=== PATIENT | male | born 1975 ===

== ENCOUNTER 2016-12-13 18:05 | Inpatient (IN) | payer MEDICAID ==
[2016-12-13 18:22] VITALS: RESP 18
[2016-12-13 21:05] LABS: HEMATOCRIT 42.2 % (35.0-51.0); MEAN CELL VOLUME 89.8 fl (80.0-94.0); MEAN CORPUSCULAR HEMOGLOBIN 29.9 pg (27.0-31.0); MEAN CORPUSCULAR HGB CONC 33.3 g/dL (33.0-37.0)
[2016-12-13 21:17] LABS: ALB/GLOB RATIO 1.2 (1.0-2.1); ALCOHOL SERUM < 10 mg/dl (0-10); ALKALINE PHOSPHATASE 89 U/L (38-126); ALT/SGPT 111 U/L (21-72); AST/SGOT 84 U/L (17-59); BILIRUBIN,TOTAL 0.4 mg/dl (0.2-1.3); BLOOD UREA NITROGEN 19 mg/dl (9-20); CALCIUM 9.1 mg/dL (8.4-10.2); CARBON DIOXIDE 28 mmol/L (22-30); CHLORIDE 105 mmol/L (98-107); GFR AFRICAN-AMERICAN > 60; GLUCOSE,RANDOM 80 mg/dL (75-110); POTASSIUM 4.1 MMOL/L (3.6-5.0); SODIUM 137 mmol/l (132-148); TOTAL PROTEIN 7.6 G/DL (6.3-8.2)
[2016-12-13 21:44] LABS: RBC URINE 3 /hpf (0-3); URINE BACTERIA RARE (<OCC); URINE BILIRUBIN NEGATIVE (NEGATIVE); URINE BLOOD NEGATIVE (NEGATIVE); URINE COLOR YELLOW (YELLOW); URINE GLUCOSE (UA) NEG (Normal); URINE KETONE NEGATIVE (NEGATIVE); URINE LEUKOCYTE ESTERASE NEG Leu/uL (Negative); URINE PROTEIN NEGATIVE (NEGATIVE); URINE UROBILINOGEN 0.2-1.0 mg/dL (0.2-1.0); WBC URINE 1 /hpf (0-5)
--- NOTE | 2016-12-13 23:06 | ED PDOC ---
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 Pt states that he was not using heroine but used again after being fired and again earlier today. Pt reports SI without plan. Past Medical History Reviewed: Historical Data, Nursing Documentation, Vital Signs Vital Signs: Last Vital Signs Temp 98.1 F 12/13/16 18:18 Pulse 84 12/13/16 18:18 Resp 18 12/13/16 18:18 BP 147/89 12/13/16 18:18 Pulse Ox 99 12/13/16 18:18 - Medical History PMH: Anxiety, Bipolar Disorder, Depression, Schizophrenia Denies: Diabetes, Hepatitis, HIV, HTN, Chronic Kidney Disease, Seizures, Sexually Transmitted Disease - Surgical History Surgical History: No Surg Hx - Family History Family History: States: Unknown Family Hx - Living Arrangements Living Arrangements: Alone - Home Medications Home Medications: Ambulatory Orders Medication Instructions Recorded No Known Home Med 02/08/16 - Allergies Allergies/Adverse Reactions: Allergies Allergy/AdvReac Type Severity Reaction Status Date / Time ibuprofen Allergy RASH Verified 04/20/16 22:40 Review of Systems ROS Statement: Except As Marked, All Systems Reviewed And Found Negative Psych: Positive for: Depression, Suicidal ideation Physical Exam - Reviewed Nursing Documentation Reviewed: Yes Vital Signs Reviewed: Yes - Physical Exam Appears: Positive for: Well, Non-toxic, No Acute Distress Head Exam: Positive for: ATRAUMATIC, NORMAL INSPECTION, NORMOCEPHALIC Skin: Positive for: Normal Color, Warm, DRY Eye Exam: Positive for: Normal appearance ENT: Positive for: Normal ENT Inspection Neck: Positive for: Normal, Painless ROM Cardiovascular/Chest: Positive for: Regular Rate, Rhythm Respiratory: Positive for: CNT, Normal Breath Sounds Gastrointestinal/Abdominal: Positive for: Normal Exam, Bowel Sounds, Soft Back: Positive for: Normal Inspection Extremity: Positive for: Normal ROM Neurologic/Psych: Positive for: Alert, Oriented - Laboratory Results Result Diagrams: 12/13/16 20:45 12/13/16 20:45 - ECG O2 Sat by Pulse Oximetry: 99 Medical Decision Making Medical Decision Making: CXR - Normal Crisis evaluation completed. Pt reports feeling anxious in ER and states he feels better after ativan PO. Disposition - Clinical Impression Clinical Impression: Depression - Patient ED Disposition Is Patient to be Admitted: Yes - Disposition Disposition: Routine/Home Disposition Time: 23:07 Condition: GOOD - Pt Status Changed To: Hospital Disposition Of: Inpatient - Admit Certification Admit to Inpatient:: After my assessment, the patient will require hospitalization for at least two midnights. This is because of the severity of symptoms shown, intensity of services needed, and/or the medical risk in this patient being treated as an outpatient. - POA Present On Arrival: None
[2016-12-13 23:34] VITALS: O2SAT 98
[2016-12-14] MEDS ORDERED: Alum-Mag Hydrox-Simethicone Susp (30 mL) PO PRN (00:02)
[2016-12-14] MEDS ORDERED: Magnesium Hydroxide Susp 30 ml UD PO PRN (00:02)
[2016-12-14] MEDS ORDERED: DiphenhydrAMINE 50 mg/ml Inj IM PRN (00:02)
--- NOTE | 2016-12-14 07:07 | CP.PCM.CON ---
History of Present Illness - History of Present Illness History of Present Illness: Attending: Dr Morales PCP: Ramos. Shubham RODRIGUEZ Reason for Consul: Medical Management Chief Complaint: Suicidal thoughts HPI: 41 years old male with hx of depressive disorder and Heroin abuse brought to the ED with Suicidal Ideation with plan to OD or cut himself, after being fired from his job. No homicidal ideation. He used Cocaine, 10 bags on the day of admission. He refers beginning to have Heroin withdrawal symptoms of tremors and abdominal cramping. PMH: Anxiety, Bipolar Disorder, Depression, Schizophrenia PSH: No surgical Hx SH: Drug use with Heroin; Alcohol socially; No cigarette smoking FH; No known family hx Allergies: Ibuprofen Review of Systems - Constitutional Constitutional: Chills. absent: Anorexia, Fatigue, Fever, Headache, Lethargy - EENT Eyes: absent: Diplopia, Floaters, Photophobia, Requires Corrective Lenses, Sees Flashes Nose/Mouth/Throat: absent: Epistaxis, Nasal Congestion, Nasal Discharge, Sinus Pain, Sinus Pressure, Sore Throat - Cardiovascular Cardiovascular: absent: Chest Pain, Edema, Leg Edema, Lightheadedness, Orthopnea , Paroxysmal Nocturnal Dyspnea - Respiratory Respiratory: absent: Cough, Wheezing, Stridor, Chest Congestion - Gastrointestinal Gastrointestinal: Cramping. absent: Constipation, Diarrhea, Nausea, Vomiting - Genitourinary Genitourinary: absent: Difficulty Urinating, Dysuria, Urinary Frequency, Freq UTI - Musculoskeletal Musculoskeletal: absent: Arthralgias, Muscle Cramps, Muscle Weakness, Neck Pain - Integumentary Integumentary: absent: Pruritus, Rash, Skin Ulcer, Sores, Striae, Swelling - Neurological Neurological: Tremor. absent: Confusion, Convulsions, Numbness, Headaches, Memory Loss - Psychiatric Psychiatric: Anxiety, Depression, Hopelessness. absent: Confusion, Hallucinations, Homicidal Ideation, Panic Attacks - Endocrine Endocrine: absent: Palpitations, Polydipsia, Polyphagia, Polyuria - Hematologic/Lymphatic Hematologic: absent: Easy Bleeding, Easy Bruising Past Patient History - Infectious Disease Hx of Infectious Diseases: None - Tetanus Immunizations Tetanus Immunization: Unknown - Past Medical History & Family History Past Medical History?: No - Past Social History Smoking Status: Never Smoked Chewing Tobacco Use: No Cigar Use: No Alcohol: > 2 Drinks/Day Drugs: Opiates Home Situation {Lives}: With Family - CARDIAC Hx Cardiac Disorders: No Hx Hypertension: No - PULMONARY Hx Respiratory Disorders: No Hx Tuberculosis: No - NEUROLOGICAL Hx Neurological Disorder: No Hx Seizures: No - HEENT Hx HEENT Problems: No - RENAL Hx Chronic Kidney Disease: No - ENDOCRINE/METABOLIC Hx Endocrine Disorders: No - HEMATOLOGICAL/ONCOLOGICAL Hx Blood Disorders: No Hx Human Immunodeficiency Virus (HIV): No - INTEGUMENTARY Hx Dermatological Problems: No - MUSCULOSKELETAL/RHEUMATOLOGICAL Hx Musculoskeletal Disorders: No - GASTROINTESTINAL Hx Gastrointestinal Disorders: No - GENITOURINARY/GYNECOLOGICAL Hx Sexually Transmitted Disorders: No - PSYCHIATRIC Hx Bipolar Disorder: Yes Hx Depression: Yes Hx Substance Use: Yes - SURGICAL HISTORY Hx Surgeries: No Hx Orthopedic Surgery: Yes (RT KNEE) - ANESTHESIA Hx Anesthesia: Yes Hx Anesthesia Reactions: No Meds Allergies/Adverse Reactions: Allergies Allergy/AdvReac Type Severity Reaction Status Date / Time ibuprofen Allergy RASH Verified 04/20/16 22:40 - Medications Medications: Current Medications Acetaminophen (Tylenol 325mg Tab) 650 mg PO Q4 PRN PRN Reason: Pain, moderate (4-7) Al Hydrox/Mg Hydrox/Simethicone (Maalox Plus 30 Ml) 30 ml PO Q4 PRN PRN Reason: Dyspepsia Diphenhydramine HCl (Benadryl) 50 mg PO HS PRN PRN Reason: Sleep Diphenhydramine HCl (Benadryl) 50 mg IM Q6 PRN PRN Reason: Extrapyramidal S/S Unable PO Haloperidol (Haldol) 5 mg PO Q4 PRN PRN Reason: Agitation Haloperidol Lactate (Haldol) 5 mg IM Q4 PRN PRN Reason: Agitation, Unable to Take PO Lorazepam (Ativan) 1 mg PO Q4 PRN PRN Reason: Anxiety/Agitation Lorazepam (Ativan) 2 mg IM Q4 PRN PRN Reason: Anxiety/Agitation,Unable PO Magnesium Hydroxide (Milk Of Magnesia) 30 ml PO HS PRN PRN Reason: Constipation Physical Exam - Constitutional Appears: No Acute Distress - Head Exam Head Exam: ATRAUMATIC, NORMAL INSPECTION, NORMOCEPHALIC - Eye Exam Eye Exam: EOMI, Normal appearance Pupil Exam: NORMAL ACCOMODATION, PERRL - ENT Exam ENT Exam: Mucous Membranes Moist, Normal Exam, Normal External Ear Exam, Normal Oropharynx - Neck Exam Neck exam: Positive for: Full Rom, Normal Inspection. Negative for: Lymphadenopathy, Tenderness - Respiratory Exam Respiratory Exam: Clear to Auscultation Bilateral. absent: Rales, Rhonchi, Wheezes - Cardiovascular Exam Cardiovascular Exam: REGULAR RHYTHM, +S1, +S2 - GI/Abdominal Exam GI & Abdominal Exam: Normal Bowel Sounds, Soft. absent: Mass, Organomegaly, Tenderness - Rectal Exam Rectal Exam: Deferred - Extremities Exam Extremities exam: Positive for: full ROM, normal inspection. Negative for: calf tenderness, joint swelling, pedal edema - Back Exam Back exam: NORMAL INSPECTION. absent: CVA tenderness (L), CVA tenderness (R) - Neurological Exam Neurological exam: Alert, CN II-XII Intact, Oriented x3, Reflexes Normal - Psychiatric Exam Psychiatric exam: Normal Affect, Normal Mood - Skin Skin Exam: Dry, Intact, Normal Color, Warm Results - Vital Signs Recent Vital Signs: Last Vital Signs Temp 97.3 F L 12/14/16 00:47 Pulse 73 12/14/16 00:47 Resp 18 12/14/16 00:47 BP 141/98 H 12/14/16 00:47 Pulse Ox 98 12/13/16 23:34 - Labs Result Diagrams: 12/13/16 20:45 12/13/16 20:45 - EKG Data EKG comments: Sinus rhythm with Sinus arrhythmia - Imaging and Cardiology chest X ray Status: Image reviewed by me, Report reviewed by me Additional comment: No active disease Assessment & Plan - Assessment and Plan (Free Text) Assessment: #. Bipolar #. Suicidal Ideation #. Heroin abuse #. Hepatitis C # Transaminitis Plan: 41 years old male with hx of depressive disorder and Heroin abuse brought to the ED with Suicidal Ideation with plan to OD or cut himself, after being fired from his job. No homicidal ideation. He used Cocaine, 10 bags on the day of admission. He refers beginning to have Heroin withdrawal symptoms of tremors and abdominal cramping. #. Bipolar - Psychiatric management #. Suicidal Ideation - Psychiatric management #. Heroin abuse - Ativan for Agitation and withdrawal #. Hepatitis C - follow up with PCP outpatient # Transaminitis due to Hepatitis C - Follow up with PCP - follow Liver profile #. Code Status: Full - Date & Time Date: 12/14/16 Time: 07:06
[2016-12-14 08:19] LABS: T4 8.86 ug/dl (5.5-11.0)
[2016-12-14 08:33] LABS: THYROID STIMULATING HORMONE 1.01 mIU/ML (0.46-4.68)
--- NOTE | 2016-12-14 08:53 | RAD ---
HISTORY: 3np admission COMPARISON: No prior. TECHNIQUE: Chest PA and lateral FINDINGS: LUNGS: No active pulmonary disease. PLEURA: No significant pleural effusion identified. No pneumothorax apparent. CARDIOVASCULAR: Normal. OSSEOUS STRUCTURES: No significant abnormalities. VISUALIZED UPPER ABDOMEN: Normal. OTHER FINDINGS: None. IMPRESSION: No active disease.
[2016-12-14 11:07] VITALS: TEMP 97.5
--- NOTE | 2016-12-14 12:04 | PCM.PSYCH ---
Initial Psychiatric Evaluation - Initial Psychiatric Evaluation Type of Admission: Voluntary Legal Status: Capacity Chief Complaint (in patient's own words): i don't want to feel like this Patient's Reaction to Hospitalization: cooperative/but irritable History of Present Illness and Precipitating Events: pt is an iv heroin user and is going through withdrawal. he is c/o diarrhea, chills, cramps, nausea/vomiting, etc. 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 he states he lost his job recently and now he feels "overwhelmed." he endorses having suicidal thoughts, but state he does feel safe in the hospital. he denies a/v hallucinations. pt has been hospitalized here multiple times. Current Medications: Active Medications Generic Name Dose Route Start Last Admin Trade Name Freq PRN Reason Stop Dose Admin Acetaminophen 650 mg 12/14/16 00:02 Tylenol 325mg Tab PO Q4 PRN Pain, moderate (4-7) Al Hydrox/Mg Hydrox/Simethicone 30 ml 12/14/16 00:02 Maalox Plus 30 Ml PO Q4 PRN Dyspepsia Clonidine HCl 0.1 mg 12/14/16 09:45 12/14/16 10:55 Catapres PO 0.1 mg BIDHS SENA Administration Cyclobenzaprine HCl 10 mg 12/14/16 09:42 12/14/16 10:55 Flexeril PO 10 mg TID PRN Administration Muscle spasm Diphenhydramine HCl 50 mg 12/14/16 00:07 Benadryl PO HS PRN Sleep Diphenhydramine HCl 50 mg 12/14/16 00:02 Benadryl IM Q6 PRN Extrapyramidal S/S Unable PO Haloperidol 5 mg 12/14/16 00:02 Haldol PO Q4 PRN Agitation Haloperidol Lactate 5 mg 12/14/16 00:02 Haldol IM Q4 PRN Agitation, Unable to Take PO Loperamide HCl 2 mg 12/14/16 09:39 12/14/16 10:55 Imodium PO 2 mg QID PRN Administration Diarrhea Lorazepam 1 mg 12/14/16 00:02 Ativan PO Q4 PRN Anxiety/Agitation Lorazepam 2 mg 12/14/16 00:02 Ativan IM Q4 PRN Anxiety/Agitation,Unable PO Magnesium Hydroxide 30 ml 12/14/16 00:02 Milk Of Magnesia PO HS PRN Constipation Ondansetron HCl 4 mg 12/14/16 09:42 12/14/16 10:54 Zofran Tab PO 4 mg Q4 PRN Administration Nausea/Vomiting Past Psychiatric History - Past Psychiatric History Previous Treatment History: Inpatient Prior Professional Help: multiple admissions Prior Psychiatric Treatment: [facility] History of Abuse: denies History of ETOH/Drug Use: iv heroin use. smokes cigarettes daily, but refuses patch History of Family Illness: denies Pertinent Medical Hx (Current Medical&Sleep Prob, Allergies): Allergies Allergy/AdvReac Type Severity Reaction Status Date / Time ibuprofen Allergy RASH Verified 04/20/16 22:40 No Known Home Med 02/08/16 Review of Systems - Psychiatric Psychiatric: As Per [facility] Mental Status Examination - Personal Presentation Personal Presentation: Looks stated age - Affect Affect: Constricted - Motor Activity Motor Activity: Calm - Reliability in Providing Information Reliability in Providing Information: Poor, due to alteration in thoughts - Speech Speech: Organized - Mood Mood: Depressed, Anxious - Formal Thought Process Formal Thought Process: No Impairment - Obsessions/Compulsions Obsessions: No Compulsions: No - Cognitive Functions Orientation: Person, Place, Situation, Time Sensorium: Alert Attention/Concentration: Attentive Abstract Thinking: [place] Estimate of Intelligence: Average Judgement: Intact, as evidence by: Insight regarding need for hospitalization Memory: Recent intact, as evidence by: Ability to recall events of the day, Remote intact, as evidenced by: Abilit to recall sig. life events - Risk Risk: Suicidal (denies plan/intent currently), Withdrawal - Strength & Assets Inventory Strength & Assets Inventory: Employment history, Life experience (recent loss of job) - Limitations Limitations: Other DSM 5 DX - DSM 5 DSM 5 Diagnosis: opioid dependence mood disorder unspecified - Recommended/Plan of Treatment Treatment Recommendations and Plan of Treatment: admit to 3 for safety and observation gather collateral information provide supportive therapy adjust medications- prn meds for opioid withdrawal. will consider treating mood when acute withdrawal is over. hospitalist consult disposition planning Projected ELOS: 3-5 days Prognosis: fair - Smoking Cessation Smoking Cessation Initiated: No Reason for not providing: declines
[2016-12-15 09:01] VITALS: BP 127/80; PULSE 85
--- NOTE | 2016-12-15 10:41 | PCM.PYCHPN ---
Psychiatric Progress Note - Psychiatric Progress Note Patient seen today, length of contact: discussed with team Patient Chief Complaint: i feel the same Problems Identified/Issues Discussed: pt c/o cramping, nausea. loose bms. he is irritable. rejects idea of inpt rehab/ [facility]. he states he tried to go to [facility], but felt it was not helpful and is expressing anger about this program. we discussed medications to help with sleep/mood but pt states "none of those one's work" he is asking to leave when told about the shower not having hot water until later today. Medication Change: No Medical Record Reviewed: Yes Mental Status Examination - Cognitive Function Orientation: Person, Place, Situation, Time Memory: Intact Attention: WNL Concentration: WNL Association: WNL Fund of Knowledge: [facility] Decription of patient's judgement and insights: fair - Mood Mood: Depressed, Anxious - Affect Affect: Constricted - Speech Speech: Appropriate - Formal Thought Process Formal Thought Process: No Impairment - Suicidal Ideation Suicidal Ideation: No Plan: denies si/hi - Homicidal Ideation Homicidal Ideation: No Goal/Treatment Plan - Goal/Treatment Plan Need for Continued Stay: Remain at risks for inpatient hospitalization, Discharge may exacerbated symptoms Progress Toward Problem(s) and Goals/Treatment Plan: opioid dependence pt demanding discharge will discharge home as pt is denying suicidal thoughts, rejecting medications and not wanting referral to appropriate aftercare. Estimated Date of D/C: 12/17/16 - Smoking Cessation Smoking Cessation Initiated: No
--- NOTE | 2016-12-15 10:48 | PCM.PYCHDC ---
Mental Status Examination - Mental Status Examination Orientation: Person, Place, Situation, Time Memory: Intact Description of patient's judgement and insight: superficial Psychotic Thoughts and Behaviors: denies a/v hallucinations Suicidal Ideation: No Current Homicidal Ideation?: No Plan: pt denies any suicidal or homicidal thoughts Discharge Summary - Discharge Note Reason for Hospitalization: heroin use, suicidal thoughts, withdrawal Psychiatric History (includes Medical, Family, Personal Hx): history of opioid dependence Laboratory Data: Abnormal Lab Results 12/14/16 07:27 Hemoglobin A1c 5.4 RPR Nonreactive Consultations:: List each consultation separately and include: 1. Reason for request. 2. Findings. 3. Follow-up Summary of Hospital Course include:: 1. Description of specific treatment plan utilized for patients during their course of treatmen. 2. Summarize the time- course for resolution of acute symptoms and/or regressed behaviors. 3. Describe issues identified and worked on during hospitalization. 4. Describe medication utilized. 5. Describe medical problems identified and treated. 6. Reassessment of suicide risk Summary of Hospital Course: pt is an iv heroin user and is going through withdrawal. he is c/o diarrhea, chills, cramps, nausea/vomiting, etc. 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 he states he lost his job recently and now he feels "overwhelmed." he endorses having suicidal thoughts, but state he does feel safe in the hospital. he denies a/v hallucinations. pt has been hospitalized here multiple times. hospital course pt admitted to [facility] and oriented to the unit. placed on routine safety protocols. started on clonidine, flexaril, immodium, zofran prn to treat withdrawal symptoms. pt isolated in room. stated he no longer felt suicidal and wanted to leave the hospital. pt resistant to idea of going to an inpt rehab program and to starting any psychiatric medications. at the time of discharge he was goal directed and future oriented and denying suicidal or homicidal thoughts. - Final Diagnosis (DSM 5) Condition upon Discharge: GOOD DSM 5: opioid dependence in withdrawal mood disorder unspecified Disposition: HOME/ ROUTINE Follow-up Treatment Plan: pt refusing medications or aftercare encouraged to abstain from alcohol, tobacco or other illicit substances encouraged to call 911 or return to an er if any suicidal or homicidal thoughts attend NA meetings daily. - Smoking Cessation Smoking Cessation Medication prescribed: No Reason for not providing: refused - Antipsychotic Medications Pt discharged on 2 or more routine antipsychotic medications: No
--- NOTE | 2016-12-17 17:10 | CARD ---
APPROVED REPORT EKG Measurement Heart [id number] <Conclusion> Normal sinus rhythm with sinus arrhythmia Normal ECG
== END 2016-12-15 10:00 | disposition home or self-care (01) | DRG 744 ==
LOC: H.ER 18:05 → H.ERHOLD 23:04 → H.PSYCH 23:55
PROVIDERS: ADMIT Psychiatry & Neurology Psychiatry; ATTEND Psychiatry & Neurology Psychiatry
PROC: HZ59ZZZ Individual Psychotherapy for Substance Abuse Treatment, Supportive (ICD-10-PCS; principal; 2016-12-13)
DX: F11.23 Opioid dependence with withdrawal (principal); B18.2 Chronic viral hepatitis C; R45.851 Suicidal ideations; F39 Unspecified mood [affective] disorder; Z88.6 Allergy status to analgesic agent

== ENCOUNTER 2018-11-19 15:59 | Inpatient (IN) | payer MEDICAID ==
[2018-11-19] MEDS ORDERED: Gadodiamide 287 MG/ML VIAL (15ML) IV ONE (17:19)
--- NOTE | 2018-11-19 17:20 | ED PDOC ---
HPI: Back Time Seen by Provider: 11/19/18 16:30 Chief Complaint (Nursing): Abdominal Pain Chief Complaint (Provider): Back Pain History Per: Patient History/Exam Limitations: no limitations Onset/Duration Of Symptoms: Days (x 3 months), Persistent Current Symptoms Are (Timing): Still Present Quality Of Discomfort: "Pain", Other Associated Symptoms: Incontinence (1 episode), New Weakness Additional Complaint(s): 43 year old male with a history of Hepatitis C and IVDA presents to the ED for evaluation of persistent back pain for three months associated with lower extremity weakness. Patient states his right lower extremity has become gradually numb since onset of back pain. His left lower extremity has also become numb, prompting ED visit. He reports 1 episode of urinary incontinence, but no bowel incontinence. Patient also reports a 30 pound unintended weight loss. He is able to ambulate with a cane and has been taking Tylenol without relief. Patient was treated at [facility] 2 months ago and had a CT performed that revealed questionable rectal thickening. Since, he has been seen at [facility] for the same symptoms. Today, he visited [facility], was given a shot of 60 mg of Toradol and referred to the ED. Denies fever and other complaints. PMD: none provided Past Medical History Reviewed: Historical Data, Nursing Documentation, Vital Signs Vital Signs: Last Vital Signs Temp 99.4 F 11/19/18 16:01 Pulse 86 11/19/18 16:01 Resp 16 11/19/18 16:01 BP 145/89 11/19/18 16:01 Pulse Ox 99 11/19/18 16:01 - Medical History PMH: Anxiety, Back Problems, Bipolar Disorder, Depression, Hepatitis (C), Schizophrenia Denies: Diabetes, HIV, HTN, Chronic Kidney Disease, Seizures, Sexually Transmitted Disease - Surgical History Surgical History: No Surg Hx - Family History Family History: States: Unknown Family Hx - Social History Drugs: Opiates (last heroin use 6 hours ago) - Immunization History Hx Tetanus Toxoid Vaccination: No (unk) Hx Influenza Vaccination: No Hx Pneumococcal Vaccination: (unk) - Home Medications Home Medications: Ambulatory Orders Medication Instructions Recorded No Known Home Med 02/08/16 No Known Home Med 10/12/16 - Allergies Allergies/Adverse Reactions: Allergies Allergy/AdvReac Type Severity Reaction Status Date / Time cat dander Allergy CONGESTION Verified 11/19/18 16:00 dog dander Allergy CONGESTION Verified 11/19/18 16:00 Review of Systems ROS Statement: Except As Marked, All Systems Reviewed And Found Negative Constitutional: Positive for: Weight loss (unintended- 30 pounds). Negative for: Fever, Chills Gastrointestinal: Negative for: Nausea, Vomiting, Abdominal Pain, Diarrhea Genitourinary Male: Positive for: Incontinence (one episode of urinary incontinence). Negative for: Frequency, Other (fecal incontinence) Musculoskeletal: Positive for: Back Pain Neurological: Positive for: Weakness (bilateral lower extremities) Physical Exam - Reviewed Nursing Documentation Reviewed: Yes Vital Signs Reviewed: Yes - Physical Exam Appears: Positive for: Non-toxic, No Acute Distress Head Exam: Positive for: ATRAUMATIC, NORMAL INSPECTION, NORMOCEPHALIC Skin: Positive for: Normal Color, Warm, Dry Eye Exam: Positive for: EOMI, Normal appearance, PERRL ENT: Positive for: Normal ENT Inspection Neck: Positive for: Normal, Painless ROM, Supple Cardiovascular/Chest: Positive for: Regular Rate, Rhythm. Negative for: Murmur Respiratory: Positive for: Normal Breath Sounds. Negative for: Wheezing, Respiratory Distress Gastrointestinal/Abdominal: Positive for: Normal Exam, Soft. Negative for: Tenderness, Mass, Guarding Back: Positive for: Other (midline mid back tenderness). Negative for: L CVA Tenderness, R CVA Tenderness Extremity: Positive for: Other (1/5 strength in RLE; 4/5 strength in LLE. Sensation intact). Negative for: Normal ROM, Tenderness (or saddle anesthesia), Deformity Neurologic/Psych: Positive for: Alert, Oriented (x 3). Negative for: Motor/Sensory Deficits - Laboratory Results Result Diagrams: 11/19/18 17:10 11/19/18 17:10 - ECG Interpretation Of ECG: NSR @ 87, no ST-T changes. O2 Sat by Pulse Oximetry: 99 (RA) Pulse Ox Interpretation: Normal - Progress ED Course And Treament: Pt administered Rocephin 2 g IV, Vancomycin 2 g IV and Flagyl 500 mg IV. - Critical Care Total Time (In Min): 45 Medical Decision Making Medical Decision Makin:55 Impression: back pain and worsening lower extremity weakness Initial Plan: --CBC --CMP --PTT --PT --Blood cx --MRI Lumbar spine --MRI Thoracic --Morphine 2 mg IV 19:47 MRI Thoracic Spine Findings: The thoracic vertebrae are in normal alignment with no listhesis seen. No fracture is identified. No focal osseous lesion is seen. There is overall normal bone marrow signal intensity. There is no sign of acute ligamentous injury. There is no definite sign of infection. The spinal cord is of normal signal intensity with no focal lesion seen. No definite soft tissue mass or fluid collection is identified. No abnormal area of enhancement is seen From T1-2 through T5-6, no disc herniation is present. There is no spinal stenosis or nerve root compression At T6-7, there is spinal stenosis with spinal cord deformity due to a 9 x 3 mm right paracentral disc protrusion. The neural foramen appear patent At T7-8 and T8-9, there is minimal 1 mm disc bulges without spinal stenosis or nerve root compromise At T9-10, T10-11, and T11-12, no pathology is seen Impression: 1. Mild spinal stenosis at T6-7 with mild spinal cord deformity due to a disc protrusion. No cord edema or myelomalacia is seen 2. Otherwise unremarkable MRI of the thoracic spine 19:57 MRI Lumbar spine Findings: There is destruction of the inferior endplate of L1 and the superior endplate of L2, with enhancement throughout these vertebral bodies. There is irregularly shaped material replacing the intervertebral disc at L1-2, with thick rim enhancement. This expansile material protrudes posteriorly into the spinal canal, resulting in spinal stenosis. There is also edema and enhancement of the psoas muscles and paraspinal musculature at this level There is 4 mm of retrolisthesis of L1 on L2, likely due to the bony destruction. There is mild scoliosis. There are Schmorl's nodes and degenerative end plate changes at L3-4 There is no sign of acute ligamentous injury. The conus medullaris appears normal, terminating at the level of T12 At T12-L1, no pathology is seen At L1-L2, there is moderate to severe spinal stenosis due to the infection, combined with facet osteoarthritis. There is apparent compression of the traversing L2 nerve roots. There is bilateral neural foramen narrowing that may affect the exiting L1 nerve roots At L2-L3, there is mild spinal stenosis due to a 4 mm disc bulge and facet osteoarthritis. The traversing L3 nerve roots are approached but not clearly compressed. There is bilateral neural foramen narrowing that may affect the exiting L2 nerve roots At L3-L4, there is spinal stenosis due to a 4 mm disc bulge and facet os teoarthritis. The traversing right L4 nerve root is contacted. There is bilateral neural foramen narrowing that may affect the exiting L3 nerve roots At L4-L5, there is a 2 mm disc bulge without spinal stenosis. There is facet osteoarthritis. There is bilateral neural foramen narrowing that may affect the exiting L4 nerve roots At L5-S1, no disc herniation is present. There is no spinal stenosis or nerve root compromise Impression: 1. Infectious discitis and osteomyelitis at the level of L1-2, with an apparent abscess replacing the intervertebral disc. This abscess protrudes posteriorly into the spinal canal, resulting in spinal stenosis with compression of the traversing L2 nerve roots 2. Edema and enhancement of the psoas muscles and paraspinal musculature at the level of L1-2, concerning for infectious myositis 3. Scoliosis and retrolisthesis at L1-2 4. Spinal stenosis at L3-4, which may affect the right L4 nerve root 5. Mild spinal stenosis at L2-3, without compression of the traversing nerve roots 6. Bilateral neural foramen narrowing from L1-2 through L4-5, which may affect the exiting nerve roots These findings were discussed with the physician taking care of the patient at 7:54 PM on 11/19/2018. 19:58 Neurosurgery paged. Case discussed with Dr. Cee, will evaluation. Discussed with Dr. Ryan. Scribe Attestation: Documented by Sheryl Gaines acting as a scribe for Chen El MD Provider Scribe Attestation: All medical record entries made by the Scribe were at my direction and personally dictated by me. I have reviewed the chart and agree that the record accurately reflects my personal performance of the history, physical exam, medical decision making, and the department course for this patient. I have also personally directed, reviewed, and agree with the discharge instructions and disposition. Disposition - Clinical Impression Clinical Impression: Spinal abscess, Infectious discitis, Osteomyelitis of lumbar spine, Infectious myositis - Patient ED Disposition Is Patient to be Admitted: Yes - Disposition Disposition Time: 20:19 Condition: STABLE - Pt Status Changed To: Hospital Disposition Of: Inpatient - Admit Certification Admit to Inpatient:: After my assessment, the patient will require hospitalization for at least two midnights. This is because of the severity of symptoms shown, intensity of services needed, and/or the medical risk in this patient being treated as an outpatient. - POA Present On Arrival: None
[2018-11-19 17:34] LABS: BASO % 0.4 % (0.0-2.0); EOS # 0.1 K/uL (0.0-0.7); EOS % 1.3 % (0.0-4.0); HEMOGLOBIN 9.9 g/dL (12.0-18.0); LYMPH # 1.6 K/uL (1.0-4.3); LYMPH % 21.8 % (20.0-40.0); MEAN CELL VOLUME 85.8 fl (80.0-94.0); MEAN CORPUSCULAR HEMOGLOBIN 28.1 pg (27.0-31.0); MEAN CORPUSCULAR HGB CONC 32.8 g/dL (33.0-37.0); MEAN PLATELET VOLUME 7.2 fl (7.2-11.7); MONO # 0.7 K/uL (0.0-0.8); MONO % 8.7 % (0.0-10.0); NEUT # 5.1 K/uL (1.8-7.0); NEUT % 67.8 % (50.0-75.0); RBC 3.53 Mil/uL (4.40-5.90); RED CELL DISTRIBUTION WIDTH 14.6 % (11.5-14.5); WHITE BLOOD COUNT 7.5 K/uL (4.8-10.8)
[2018-11-19 17:44] LABS: INR 1.5; PROTHROMBIN TIME 16.6 Seconds (9.8-13.1)
[2018-11-19 17:46] LABS: PARTIAL THROMBOPLASTIN TIME 34.9 Seconds (25.6-37.1)
[2018-11-19 18:36] LABS: ALB/GLOB RATIO 1.1 (1.0-2.1); ALBUMIN 4.1 g/dL (3.5-5.0); ALT/SGPT 29 U/L (21-72); AST/SGOT 39 U/L (17-59); BLOOD UREA NITROGEN 16 mg/dl (9-20); CALCIUM 9.3 mg/dL (8.4-10.2); GFR NON-AFRICAN AMERICAN > 60
[2018-11-19] MEDS ORDERED: Vancomycin 2 GM in Sodium Chloride 0.9% 500 ML IVPB STA (19:56)
[2018-11-19] MEDS ORDERED: cefTRIAXone 2 GM in Sodium Chloride 0.9% 100 ML IVPB STA (19:56)
[2018-11-19] MEDS ORDERED: metroNIDAZOLE 500mg/100ml NS 100 ML IV STA (20:03)
[2018-11-19] MEDS ORDERED: metroNIDAZOLE 500mg/100ml NS 100 ML IVPB ONE (21:53)
[2018-11-20] MEDS ORDERED: metroNIDAZOLE 500mg/100ml NS IVPB SCH (05:00)
[2018-11-20] MEDS: METRONIDAZOLE 500 MG/100 ML IVPB SCH ×3 (05:36→20:30)
[2018-11-20] MEDS: NS IVPB SCH ×3 (05:36→20:30)
[2018-11-20 06:21] LABS: HEMOGLOBIN 10.2 g/dL (12.0-18.0); MEAN CORPUSCULAR HEMOGLOBIN 28.1 pg (27.0-31.0); MEAN CORPUSCULAR HGB CONC 32.7 g/dL (33.0-37.0); RBC 3.63 Mil/uL (4.40-5.90); RED CELL DISTRIBUTION WIDTH 14.5 % (11.5-14.5)
[2018-11-20 06:57] LABS: ALBUMIN 3.5 g/dL (3.5-5.0); ALT/SGPT 23 U/L (21-72); AST/SGOT 27 U/L (17-59); BLOOD UREA NITROGEN 14 mg/dl (9-20); GFR NON-AFRICAN AMERICAN > 60
--- NOTE | 2018-11-20 08:14 | RAD ---
Date of service: 11/19/2018 HISTORY: Spinal abscess COMPARISON: Chest radiographs 12/13/2016. FINDINGS: LUNGS: No active pulmonary disease. PLEURA: No significant pleural effusion identified, no pneumothorax apparent. CARDIOVASCULAR: No aortic atherosclerotic calcification present. Normal cardiac size. No pulmonary vascular congestion. OSSEOUS STRUCTURES: No significant abnormalities. VISUALIZED UPPER ABDOMEN: Normal. OTHER FINDINGS: None. IMPRESSION: No interval acute cardiopulmonary disease appreciated.
--- NOTE | 2018-11-20 08:52 | CARD ---
APPROVED REPORT Date of service: 11/19/2018 EKG Measurement Heart [id number] <Conclusion> Normal sinus rhythm Normal Electrocardiogram
[2018-11-20] MEDS ORDERED: cefTRIAXone 2 GM in Sodium Chloride 0.9% 100 ML IVPB SCH (09:00)
[2018-11-20] MEDS ORDERED: Cefepime 2 GM in Sodium Chloride 0.9% 100 ML IVPB SCH (09:00)
[2018-11-20] MEDS ORDERED: Phytonadione 10 mg/ml Inj (Adult) SC ONE (09:33)
--- NOTE | 2018-11-20 11:28 | CP.PCM.HP ---
History of Present Illness - History of Present Illness History of Present Illness: CC: Back pain 2 months Lower Extremity weakness 1 week History of present illness A 43 year old male with a history of Hepatitis C and IVDA presents to the ED for evaluation of persistent back pain for 2 months associated with lower extremity weakness . Patient states his right lower extremity has become gradually numb and weak for 1 week. His left lower extremity has also become numb and progressively getting weaker prompting ED visit. Also complaining 1 of an episode of urinary incontinence, but no bowel incontinence. Patient also reports a 30 pound unintended weight loss. He is able to ambulate with a cane and has been taking Tylenol without relief. Patient was treated at [facility] 2 months ago and had a CT performed that revealed questionable rectal thickening. He also has been seen at [facility] for the same symptoms since. Today, he visited [facility], was given a shot of 60 mg of Toradol and referred to the ED. Denies fever and other complaints. Also complaining of Exertional dyspnea of half a block. Denies chest pain, palpitation or leg swelling. In the ER emergently MRI was done which showed spinal abscess with discitis and cord compression. Present on Admission - Present on Admission Any Indicators Present on Admission: No Review of Systems - Review of Systems All systems: reviewed and no additional remarkable complaints except Review of Systems: as per HPI Past Patient History - Infectious Disease Hx of Infectious Diseases: None - Tetanus Immunizations Tetanus Immunization: Unknown - Past Medical History & Family History Past Medical History?: Yes - Past Social History Smoking Status: Current Some Days Smoker Alcohol: None - CARDIAC Hx Cardiac Disorders: No Hx Hypertension: No - PULMONARY Hx Respiratory Disorders: No Hx Tuberculosis: No - NEUROLOGICAL Hx Neurological Disorder: No Hx Seizures: No - HEENT Hx HEENT Problems: No - RENAL Hx Chronic Kidney Disease: No - ENDOCRINE/METABOLIC Hx Endocrine Disorders: No - HEMATOLOGICAL/ONCOLOGICAL Hx Blood Disorders: Yes Hx AIDS: No Hx Hepatitis C: Yes Hx Human Immunodeficiency Virus (HIV): No - INTEGUMENTARY Hx Dermatological Problems: No - MUSCULOSKELETAL/RHEUMATOLOGICAL Hx Musculoskeletal Disorders: Yes Hx Back Pain: Yes Hx Falls: Yes - GASTROINTESTINAL Hx Gastrointestinal Disorders: No - GENITOURINARY/GYNECOLOGICAL Hx Genitourinary Disorders: No Hx Sexually Transmitted Disorders: No - PSYCHIATRIC Hx Psychophysiologic Disorder: Yes Hx Anxiety: Yes Hx Bipolar Disorder: Yes Hx Depression: Yes Hx Schizophrenia: Yes Hx Substance Use: Yes - SURGICAL HISTORY Hx Surgeries: Yes Hx Orthopedic Surgery: Yes (rt knee) - ANESTHESIA Hx Anesthesia: Yes Hx Anesthesia Reactions: No Hx Malignant Hyperthermia: No Has any member of the family had a problem w/ anesthesia?: No Meds Allergies/Adverse Reactions: Allergies Allergy/AdvReac Type Severity Reaction Status Date / Time cat dander Allergy CONGESTION Verified 11/19/18 16:00 dog dander Allergy CONGESTION Verified 11/19/18 16:00 Physical Exam - Constitutional Appears: No Acute Distress - Head Exam Head Exam: ATRAUMATIC, NORMAL INSPECTION, NORMOCEPHALIC - Eye Exam Eye Exam: EOMI, Normal appearance, PERRL Pupil Exam: NORMAL ACCOMODATION, PERRL - ENT Exam ENT Exam: Mucous Membranes Moist, Normal Exam - Neck Exam Neck exam: Positive for: Normal Inspection - Respiratory Exam Respiratory Exam: Clear to Auscultation Bilateral, NORMAL BREATHING PATTERN - Cardiovascular Exam Cardiovascular Exam: REGULAR RHYTHM, +S1, +S2 - GI/Abdominal Exam GI & Abdominal Exam: Normal Bowel Sounds, Soft. absent: Tenderness - Extremities Exam Extremities exam: Positive for: normal capillary refill, normal inspection - Back Exam Back exam: FULL ROM, NORMAL INSPECTION - Neurological Exam Neurological exam: Alert, CN II-XII Intact, Normal Gait, Oriented x3, Reflexes Normal - Psychiatric Exam Psychiatric exam: Normal Affect, Normal Mood - Skin Skin Exam: Dry, Intact, Normal Color, Warm Results - Vital Signs Recent Vital Signs: Last Vital Signs Temp 97.9 F 11/20/18 10:35 Pulse 59 L 11/20/18 10:35 Resp 18 11/20/18 10:35 BP 128/81 11/20/18 10:35 Pulse Ox 98 11/20/18 00:15 - Labs Result Diagrams: 11/20/18 06:00 11/20/18 06:00 Labs: Laboratory Results - last 24 hr 11/19/18 11/19/18 11/19/18 17:10 17:10 17:10 WBC 7.5 RBC 3.53 L Hgb 9.9 L D Hct 30.3 L MCV 85.8 D MCH 28.1 MCHC 32.8 L RDW 14.6 H Plt Count 271 D MPV 7.2 Neut % (Auto) 67.8 Lymph % (Auto) 21.8 [place] % (Auto) 8.7 Eos % (Auto) 1.3 Baso % (Auto) 0.4 Neut # (Auto) 5.1 Lymph # (Auto) 1.6 [place] # (Auto) 0.7 Eos # (Auto) 0.1 Baso # (Auto) 0.0 ESR PT 16.6 H INR 1.5 APTT 34.9 Sodium 135 Potassium 4.6 Chloride 96 L Carbon Dioxide 26 Anion Gap 18 BUN 16 Creatinine 0.6 L Est GFR ( Amer) > 60 Est GFR (Non-Af Amer) > 60 Random Glucose 96 Calcium 9.3 Total Bilirubin 0.5 AST 39 ALT 29 Alkaline Phosphatase 100 Total Protein 7.8 Albumin 4.1 Globulin 3.7 Albumin/Globulin Ratio 1.1 Blood Type Blood Type Confirm Antibody Screen BBK History Checked 11/19/18 11/20/18 11/20/18 20:52 06:00 06:00 WBC 8.0 RBC 3.63 L Hgb 10.2 L Hct 31.2 L MCV 86.0 MCH 28.1 MCHC 32.7 L RDW 14.5 Plt Count 264 MPV Neut % (Auto) Lymph % (Auto) [place] % (Auto) Eos % (Auto) Baso % (Auto) Neut # (Auto) Lymph # (Auto) [place] # (Auto) Eos # (Auto) Baso # (Auto) ESR 68 H 83 H PT INR APTT Sodium 137 Potassium 4.3 Chloride 100 Carbon Dioxide 27 Anion Gap 14 BUN 14 Creatinine 0.6 L Est GFR ( Amer) > 60 Est GFR (Non-Af Amer) > 60 Random Glucose 100 Calcium 9.0 Total Bilirubin 0.4 AST 27 ALT 23 Alkaline Phosphatase 95 Total Protein 6.9 Albumin 3.5 Globulin 3.4 Albumin/Globulin Ratio 1.0 Blood Type Blood Type Confirm Antibody Screen BBK History Checked 11/20/18 11/20/18 06:00 08:36 WBC RBC Hgb Hct MCV MCH MCHC RDW Plt Count MPV Neut % (Auto) Lymph % (Auto) [place] % (Auto) Eos % (Auto) Baso % (Auto) Neut # (Auto) Lymph # (Auto) [place] # (Auto) Eos # (Auto) Baso # (Auto) ESR PT INR APTT Sodium Potassium Chloride Carbon Dioxide Anion Gap BUN Creatinine Est GFR ( Amer) Est GFR (Non-Af Amer) Random Glucose Calcium Total Bilirubin AST ALT Alkaline Phosphatase Total Protein Albumin Globulin Albumin/Globulin Ratio Blood Type O NEGATIVE Blood Type Confirm O NEGATIVE Antibody Screen Negative BBK History Checked No verified bt - Imaging and Cardiology MRI Spine: Status: Report reviewed by me Additional comment: Infectious discitis and osteomyelitis at the level of L1-2, with an apparent abscess replacing the intervertebral disc. This abscess protrudes posteriorly into the spinal canal, resulting in spinal stenosis with compression of the transversing L3 nerve roots. Edema and enhancement of the psoas muscles and paraspinal musculature at the level of L1-2, concerning for infectious myositis. Scoliosis and retrolisthesis at L1-2 Assessment & Plan (1) IV drug abuse Status: Acute Priority: High (2) Infectious discitis Status: Acute Priority: High (3) Infectious myositis Status: Acute Priority: High (4) Osteomyelitis of lumbar spine Status: Acute Priority: High (5) Spinal abscess Status: Acute Priority: High (6) Weakness of lower extremity Assessment and Plan: Due to Spinal Cord Compression Status: Acute Priority: High (7) Dyspnea on exertion Status: Acute - Assessment and Plan (Free Text) Plan: IV fluid IV metronidazole, cefepime, and vancomycin IV pain medication as needed Vitamin K 10 mg IV 1 dose We will arrange FFP during surgery Cardiology consult [history of dyspnea on exertion] rule out cardiomyopathy Transthoracic echo Urine drug screen Neurosurgery on board Patient medically cleared with acceptable risk if cleared by Cardiology. Optimized INR with FFP and Vitamin K
[2018-11-20 11:33] VITALS: BMI 21.5
--- NOTE | 2018-11-20 12:14 | CP.PCM.PN ---
Subjective - Date & Time of Evaluation Date of Evaluation: 11/20/18 Time of Evaluation: 12:11 - Subjective Subjective: SPINE Pt scheduled for surgery today, but he has not been medically cleared as per Dr. Ryan. Therefore have tentatively rescheduled him for Saturday at 11. Pt states his feeling of weakness in the legs has been going on for weeks, and that he can ambulate with the use of a cane. Grossly on exam he is neurologically intact distally so this is not an emergent situation and will await medical/cardiac clearance. Objective - Vital Signs/Intake and Output Vital Signs (last 24 hours): Temp Pulse Resp BP Pulse Ox 97.9 F 59 L 18 128/81 100 11/20/18 10:35 11/20/18 10:35 11/20/18 10:35 11/20/18 10:35 11/20/18 09:00 - Medications Medications: Current Medications Metronidazole (Flagyl 500mg/100ml Ns) 100 mls @ 100 mls/hr IVPB Q8H SENA Last Admin: 11/20/18 05:36 Dose: 100 mls/hr Vancomycin HCl 1 gm/ Sodium (Chloride) 250 mls @ 166.667 mls/hr IVPB Q8 SENA; Protocol Last Admin: 11/20/18 09:16 Dose: 166.667 mls/hr Cefepime HCl 2 gm/ Sodium (Chloride) 100 mls @ 100 mls/hr IVPB Q8 SENA; Protocol Dextrose/Sodium Chloride (Dextrose 5%/0.45% Ns 1000 Ml) 1,000 mls @ 100 mls/hr IV .Q10H SENA Stop: 11/21/18 09:36 Ketorolac Tromethamine (Toradol) 15 mg IVP Q6 PRN PRN Reason: Pain, moderate (4-7) Last Admin: 11/20/18 08:09 Dose: 15 mg - Labs Labs: 11/20/18 06:00 11/20/18 06:00 PT 16.6 Seconds (9.8-13.1) H 11/19/18 17:10 INR 1.5 11/19/18 17:10 APTT 34.9 Seconds (25.6-37.1) 11/19/18 17:10
--- NOTE | 2018-11-20 12:39 | CP.PCM.CON ---
History of Present Illness - History of Present Illness History of Present Illness: 43 y/o male admitted with spinal abscess with disktis and cord compression. Pt needs cardiac clearance EKG: Normal Sinus Rhythm Pt denies any cardiac Hx No HTN; chest pain; palpitations;SOB/ TALBOT PMH: IVDA Hepatitis C Past Patient History - Infectious Disease Hx of Infectious Diseases: None - Tetanus Immunizations Tetanus Immunization: Unknown - Past Medical History & Family History Past Medical History?: Yes - Past Social History Smoking Status: Current Some Days Smoker Alcohol: None - CARDIAC Hx Cardiac Disorders: No Hx Hypertension: No - PULMONARY Hx Respiratory Disorders: No Hx Tuberculosis: No - NEUROLOGICAL Hx Neurological Disorder: No Hx Seizures: No - HEENT Hx HEENT Problems: No - RENAL Hx Chronic Kidney Disease: No - ENDOCRINE/METABOLIC Hx Endocrine Disorders: No - HEMATOLOGICAL/ONCOLOGICAL Hx Blood Disorders: Yes Hx AIDS: No Hx Hepatitis C: Yes Hx Human Immunodeficiency Virus (HIV): No - INTEGUMENTARY Hx Dermatological Problems: No - MUSCULOSKELETAL/RHEUMATOLOGICAL Hx Musculoskeletal Disorders: Yes Hx Back Pain: Yes Hx Falls: Yes - GASTROINTESTINAL Hx Gastrointestinal Disorders: No - GENITOURINARY/GYNECOLOGICAL Hx Genitourinary Disorders: No Hx Sexually Transmitted Disorders: No - PSYCHIATRIC Hx Psychophysiologic Disorder: Yes Hx Anxiety: Yes Hx Bipolar Disorder: Yes Hx Depression: Yes Hx Schizophrenia: Yes Hx Substance Use: Yes - SURGICAL HISTORY Hx Surgeries: Yes Hx Orthopedic Surgery: Yes (rt knee) - ANESTHESIA Hx Anesthesia: Yes Hx Anesthesia Reactions: No Hx Malignant Hyperthermia: No Has any member of the family had a problem w/ anesthesia?: No Meds Allergies/Adverse Reactions: Allergies Allergy/AdvReac Type Severity Reaction Status Date / Time cat dander Allergy CONGESTION Verified 11/19/18 16:00 dog dander Allergy CONGESTION Verified 11/19/18 16:00 - Medications Medications: Current Medications Metronidazole (Flagyl 500mg/100ml Ns) 100 mls @ 100 mls/hr IVPB Q8H SENA Last Admin: 11/20/18 05:36 Dose: 100 mls/hr Vancomycin HCl 1 gm/ Sodium (Chloride) 250 mls @ 166.667 mls/hr IVPB Q8 SENA; Protocol Last Admin: 11/20/18 09:16 Dose: 166.667 mls/hr Cefepime HCl 2 gm/ Sodium (Chloride) 100 mls @ 100 mls/hr IVPB Q8 SENA; Protocol Dextrose/Sodium Chloride (Dextrose 5%/0.45% Ns 1000 Ml) 1,000 mls @ 100 mls/hr IV .Q10H SENA Stop: 11/21/18 09:36 Ketorolac Tromethamine (Toradol) 15 mg IVP Q6 PRN PRN Reason: Pain, moderate (4-7) Last Admin: 11/20/18 08:09 Dose: 15 mg Results - Vital Signs Recent Vital Signs: Last Vital Signs Temp 97.9 F 11/20/18 10:35 Pulse 59 L 11/20/18 10:35 Resp 18 11/20/18 10:35 BP 128/81 11/20/18 10:35 Pulse Ox 100 11/20/18 09:00 - Labs Result Diagrams: 11/20/18 06:00 11/20/18 06:00 Labs: Laboratory Results - last 24 hr 11/19/18 11/19/18 11/19/18 17:10 17:10 17:10 WBC 7.5 RBC 3.53 L Hgb 9.9 L D Hct 30.3 L MCV 85.8 D MCH 28.1 MCHC 32.8 L RDW 14.6 H Plt Count 271 D MPV 7.2 Neut % (Auto) 67.8 Lymph % (Auto) 21.8 [place] % (Auto) 8.7 Eos % (Auto) 1.3 Baso % (Auto) 0.4 Neut # (Auto) 5.1 Lymph # (Auto) 1.6 [place] # (Auto) 0.7 Eos # (Auto) 0.1 Baso # (Auto) 0.0 ESR PT 16.6 H INR 1.5 APTT 34.9 Sodium 135 Potassium 4.6 Chloride 96 L Carbon Dioxide 26 Anion Gap 18 BUN 16 Creatinine 0.6 L Est GFR ( Amer) > 60 Est GFR (Non-Af Amer) > 60 Random Glucose 96 Calcium 9.3 Total Bilirubin 0.5 AST 39 ALT 29 Alkaline Phosphatase 100 Total Protein 7.8 Albumin 4.1 Globulin 3.7 Albumin/Globulin Ratio 1.1 Blood Type Blood Type Confirm Antibody Screen BBK History Checked 11/19/18 11/20/18 11/20/18 20:52 06:00 06:00 WBC 8.0 RBC 3.63 L Hgb 10.2 L Hct 31.2 L MCV 86.0 MCH 28.1 MCHC 32.7 L RDW 14.5 Plt Count 264 MPV Neut % (Auto) Lymph % (Auto) [place] % (Auto) Eos % (Auto) Baso % (Auto) Neut # (Auto) Lymph # (Auto) [place] # (Auto) Eos # (Auto) Baso # (Auto) ESR 68 H 83 H PT INR APTT Sodium 137 Potassium 4.3 Chloride 100 Carbon Dioxide 27 Anion Gap 14 BUN 14 Creatinine 0.6 L Est GFR ( Amer) > 60 Est GFR (Non-Af Amer) > 60 Random Glucose 100 Calcium 9.0 Total Bilirubin 0.4 AST 27 ALT 23 Alkaline Phosphatase 95 Total Protein 6.9 Albumin 3.5 Globulin 3.4 Albumin/Globulin Ratio 1.0 Blood Type Blood Type Confirm Antibody Screen BBK History Checked 11/20/18 11/20/18 06:00 08:36 WBC RBC Hgb Hct MCV MCH MCHC RDW Plt Count MPV Neut % (Auto) Lymph % (Auto) [place] % (Auto) Eos % (Auto) Baso % (Auto) Neut # (Auto) Lymph # (Auto) [place] # (Auto) Eos # (Auto) Baso # (Auto) ESR PT INR APTT Sodium Potassium Chloride Carbon Dioxide Anion Gap BUN Creatinine Est GFR ( Amer) Est GFR (Non-Af Amer) Random Glucose Calcium Total Bilirubin AST ALT Alkaline Phosphatase Total Protein Albumin Globulin Albumin/Globulin Ratio Blood Type O NEGATIVE Blood Type Confirm O NEGATIVE Antibody Screen Negative BBK History Checked No verified bt Assessment & Plan (1) Discitis of multiple sites of spine Assessment and Plan: The patient is cleared for surgery Status: Acute (2) Spinal abscess Status: Acute Priority: High (3) Hepatitis C Status: Acute
[2018-11-20] MEDS: Dextrose 5%/0.45% NS 1,000 ML IV SCH ×2 (13:05→20:41)
--- NOTE | 2018-11-20 15:35 | MRI ---
Date of service: 11/19/2018 PROCEDURE: MR LUMBAR SPINE WITH AND WITHOUT CONTRAST HISTORY: Back pain, IVDA, RLE weakness COMPARISON: None available. TECHNIQUE: Multiecho multiplanar sequences were performed through the lumbar spine with and without the use of intravenous contrast (1 intravenous gadolinium dose of 15 cc Omniscan was administered covering both thoracic and lumbar spine MRI examinations). FINDINGS: S1 vertebral body is lumbarized, proven in thoracic spine exam counter series. There is a reversal of the upper lumbar curvature caused by grade 2 spondylolisthesis of L2 posterior to L3. Further, endplate degenerative changes are quite marked at the inferior endplate of L2 and superior endplate of L3 with widened, irregular and fluid containing intervertebral disc space. Prevertebral edema is seen in the soft tissues anterior to not only L2 and L3 vertebral bodies but also at L1 and L4. Intravenous gadolinium administration, there is enhancement throughout the vertebral bodies of L2 and L3 as well as prevertebral soft tissues in the aforementioned distribution and the intervertebral disc space in heterogeneous fat compatible with discitis osteomyelitis. Epidural abscess is identified posterior to from L1 extending inferiorly to minimally involve L4 anterior epidural space. All these findings conspire to result in a moderate to severe stenosis at L1-2. Note, majority of left greater than right psoas muscles are edematous and exhibit abnormal enhancement essentially from their origins down to at least S1. Lesser enhancement occurs in posterior paraspinal musculature at the left at L2 and bilaterally from L3 down to S1 though not as prominently as the bilateral psoas muscles. Prevertebral abscess is difficult to exclude from T1 down to L4. Advanced Modic type 1 endplate degenerative changes are identified at L4-5 which do not enhance and therefore do not suggest discitis osteomyelitis. Remaining vertebral body signal intensity is unremarkable throughout the visualized inferior lumbar spine and sacrum as well as L1 vertebral body. Conus medullaris terminates at L1. Mild mid lumbar levoscoliosis likely related to right lateral subluxation of L2. L1-2: No disc herniation, spinal canal stenosis or neural foraminal narrowing. L2-3: No disc herniation. High-grade central canal stenosis as discussed above. Borderline left and moderate right neural foraminal stenoses are identified. L3-4: Moderate circumferential disc bulging combines with moderately advanced facet arthropathy resulting in a moderate central canal stenosis, moderate left neural foraminal stenosis and mild right neural foraminal stenosis. Node definitive disc herniation identified. L4-5: Moderate circumferential disc bulging combines with moderately advanced facet arthropathy resulting in a moderate central canal stenosis, moderate left neural foraminal stenosis and mild right neural foraminal stenosis. Node definitive disc herniation identified. L5-S1: No disc herniation. Limited circumferential disc bulge combines with gross facet joint degenerative change resulting in [id number] central canal stenosis and mild bilateral neural foraminal stenoses. S1-2: No disc herniation, spinal canal stenosis or neural foraminal narrowing. Moderate degenerative facet arthropathy appreciated. OTHER FINDINGS: None. IMPRESSION: 1. 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 These findings combine with facet arthropathy resulting in moderate to severe central canal stenosis and variable bilateral neural foraminal stenosis. Epidural abscess is identified at least at the L2 and L3 levels and likely minimally extends into the L4 anterior epidural space with prominent prevertebral paraspinal myositis identified along the bilateral psoas muscles, left greater than right and the posterior paraspinal musculature as well. Underlying muscle tears are not excluded but are not favored. Prevertebral abscess is difficult to exclude at least anterior to L1 down to upper L4 level. 2. Multilevel degenerative central canal and neural foraminal stenoses as discussed above. No definitive disc herniation appreciable. Preliminary report provided by Adenike, 11/19/2018 7:57 p.m.. Discordant with the level of discitis/osteomyelitis which is actually L2-3 as discussed above and extent of potential prevertebral abscess. Findings discussed with Dr. Grier written down and read back verification 11/20/2018 3:30 p.m..
--- NOTE | 2018-11-20 15:39 | MRI ---
Date of service: 11/19/2018 PROCEDURE: MR THORACIC SPINE WITH AND WITHOUT CONTRAST HISTORY: Back pain, IVDA COMPARISON: None available. TECHNIQUE: Multiecho multiplanar sequences were performed through the thoracic spine with and without the use of intravenous contrast (Omniscan 15 cc, thoracic and lumbar spine exams were administered same solitary gadolinium dose). FINDINGS: ALIGNMENT: Normal thoracic spinal alignment. Normal thoracic kyphosis. VERTEBRA: Vertebral body height are preserved. MARROW: Marrow signal unremarkable. PARASPINAL SOFT TISSUES: No definitive suspicious contrast enhances appreciate the prevertebral paraspinal soft tissues of the thoracic spine although significant prevertebral paraspinal soft tissue enhancement identified throughout significant segments at the lumbar spine. Please separate evaluation in lumbar spine MRI also performed 11/19/2018. CORD: Unremarkable thoracic cord. No volume loss, signal abnormality or syrinx. DISCS: Limited right lateral disc protrusion T7-8 impression right lateral ventral thoracic cord without moderate or severe generalized central canal stenosis occurring. No cord reaction appreciable. No additional potential disc herniation throughout the remainder of the examination. ENHANCEMENT: No abnormal enhancement. OTHER FINDINGS: None. IMPRESSION: Limited right lateral disc protrusion T7-8 impressing the right lateral ventral thoracic cord without reaction. No large disc herniation, central canal or neural foraminal stenosis is appreciated throughout the thoracic spine with incidental discitis osteomyelitis pattern present at L2-3 in the lumbar spine as well as prevertebral paraspinal soft tissues of the lumbar spine. Please see separate lumbar spine MRI also performed 11/19/2018. No suspicious thoracic enhancement appreciable. Preliminary report provided by Adenike, 11/19/2018 7:47 p.m.. Discordant with the level of discitis/osteomyelitis which is actually L2-3 as discussed above and extent of potential prevertebral abscess. Findings discussed with Dr. Ryan written down and read back verification 11/20/2018 3:30 p.m..
--- NOTE | 2018-11-20 17:29 | CP.PCM.CON ---
History of Present Illness - History of Present Illness History of Present Illness: 43 year old male with a history of Hepatitis C and IVDA presents to the ED for evaluation of persistent back pain for three months associated with lower extremity weakness. Patient states his right lower extremity has become gradually numb since onset of back pain. His left lower extremity has also become numb, prompting ED visit. He reports 1 episode of urinary incontinence, but no bowel incontinence. Patient also reports a 30 pound unintended weight loss. He is able to ambulate with a cane and has been taking Tylenol without re lief. Patient was treated at [facility] [place] ago and had a CT performed that revealed questionable rectal thickening. Since, he has been seen at [facility] (formerly [facility]) for the same symptoms. Today, he visited [facility], was given a shot of 60 mg of Toradol and referred to the ED. Denies fever and other complaints. Started on IV antibiotics Neurosurgical intervention planned after cardiac jazmine arancsoumya PMH: Anxiety, Back Problems, Bipolar Disorder, Depression, Hepatitis (C), Schizophrenia Denies: Diabetes, HIV, HTN, Chronic Kidney Disease, Seizures, Sexually Transmitted Disease Review of Systems - Review of Systems All systems: reviewed and no additional remarkable complaints except Past Patient History - Infectious Disease Hx of Infectious Diseases: None - Tetanus Immunizations Tetanus Immunization: Unknown - Past Medical History & Family History Past Medical History?: Yes - Past Social History Smoking Status: Current Some Days Smoker Alcohol: None - CARDIAC Hx Cardiac Disorders: No Hx Hypertension: No - PULMONARY Hx Respiratory Disorders: No Hx Tuberculosis: No - NEUROLOGICAL Hx Neurological Disorder: No Hx Seizures: No - HEENT Hx HEENT Problems: No - RENAL Hx Chronic Kidney Disease: No - ENDOCRINE/METABOLIC Hx Endocrine Disorders: No - HEMATOLOGICAL/ONCOLOGICAL Hx Blood Disorders: Yes Hx AIDS: No Hx Hepatitis C: Yes Hx Human Immunodeficiency Virus (HIV): No - INTEGUMENTARY Hx Dermatological Problems: No - MUSCULOSKELETAL/RHEUMATOLOGICAL Hx Musculoskeletal Disorders: Yes Hx Back Pain: Yes Hx Falls: Yes - GASTROINTESTINAL Hx Gastrointestinal Disorders: No - GENITOURINARY/GYNECOLOGICAL Hx Genitourinary Disorders: No Hx Sexually Transmitted Disorders: No - PSYCHIATRIC Hx Psychophysiologic Disorder: Yes Hx Anxiety: Yes Hx Bipolar Disorder: Yes Hx Depression: Yes Hx Schizophrenia: Yes Hx Substance Use: Yes - SURGICAL HISTORY Hx Surgeries: Yes Hx Orthopedic Surgery: Yes (rt knee) - ANESTHESIA Hx Anesthesia: Yes Hx Anesthesia Reactions: No Hx Malignant Hyperthermia: No Has any member of the family had a problem w/ anesthesia?: No Meds Allergies/Adverse Reactions: Allergies Allergy/AdvReac Type Severity Reaction Status Date / Time cat dander Allergy CONGESTION Verified 11/21/18 12:47 dog dander Allergy CONGESTION Verified 11/21/18 12:47 - Medications Medications: Current Medications Metronidazole (Flagyl 500mg/100ml Ns) 100 mls @ 100 mls/hr IVPB Q8H SENA Last Admin: 11/20/18 13:14 Dose: 100 mls/hr Vancomycin HCl 1 gm/ Sodium (Chloride) 250 mls @ 166.667 mls/hr IVPB Q8 SENA; Protocol Last Admin: 11/20/18 09:16 Dose: 166.667 mls/hr Dextrose/Sodium Chloride (Dextrose 5%/0.45% Ns 1000 Ml) 1,000 mls @ 100 mls/hr IV .Q10H SENA Stop: 11/21/18 09:36 Last Admin: 11/20/18 13:05 Dose: 100 mls/hr Cefepime HCl 2 gm/ Sodium (Chloride) 100 mls @ 100 mls/hr IVPB Q8@0500,1300,2100 SENA; Protocol Ketorolac Tromethamine (Toradol) 15 mg IVP Q6 PRN PRN Reason: Pain, moderate (4-7) Last Admin: 11/20/18 14:19 Dose: 15 mg Ketorolac Tromethamine (Toradol) 30 mg IVP Q6 PRN PRN Reason: Pain, severe (8-10) Physical Exam - Constitutional Appears: Chronically Ill - Head Exam Head Exam: NORMAL INSPECTION - Eye Exam Eye Exam: absent: Scleral icterus - ENT Exam ENT Exam: Mucous Membranes Dry - Neck Exam Neck exam: Negative for: Lymphadenopathy - Respiratory Exam Respiratory Exam: Decreased Breath Sounds - Cardiovascular Exam Cardiovascular Exam: REGULAR RHYTHM - GI/Abdominal Exam GI & Abdominal Exam: Diminished Bowel Sounds - Rectal Exam Rectal Exam: Deferred - Exam Exam: NORMAL INSPECTION - Extremities Exam Extremities exam: Negative for: pedal edema - Back Exam Back exam: absent: CVA tenderness (L), CVA tenderness (R) - Neurological Exam Neurological exam: Alert, Motor Sensory Deficit, Oriented x3 - Psychiatric Exam Psychiatric exam: Depressed Results - Vital Signs Recent Vital Signs: Last Vital Signs Temp 99.2 F 11/20/18 16:27 Pulse 57 L 11/20/18 16:27 Resp 20 11/20/18 16:27 BP 146/74 11/20/18 16:27 Pulse Ox 100 11/20/18 16:27 - Labs Result Diagrams: 11/21/18 06:21 11/21/18 06:21 Labs: Laboratory Results - last 24 hr 11/19/18 11/19/18 11/19/18 17:10 17:10 17:10 WBC 7.5 RBC 3.53 L Hgb 9.9 L D Hct 30.3 L MCV 85.8 D MCH 28.1 MCHC 32.8 L RDW 14.6 H Plt Count 271 D MPV 7.2 Neut % (Auto) 67.8 Lymph % (Auto) 21.8 [place] % (Auto) 8.7 Eos % (Auto) 1.3 Baso % (Auto) 0.4 Neut # (Auto) 5.1 Lymph # (Auto) 1.6 [place] # (Auto) 0.7 Eos # (Auto) 0.1 Baso # (Auto) 0.0 ESR PT 16.6 H INR 1.5 APTT 34.9 Sodium 135 Potassium 4.6 Chloride 96 L Carbon Dioxide 26 Anion Gap 18 BUN 16 Creatinine 0.6 L Est GFR ( Amer) > 60 Est GFR (Non-Af Amer) > 60 Random Glucose 96 Calcium 9.3 Total Bilirubin 0.5 AST 39 ALT 29 Alkaline Phosphatase 100 Total Protein 7.8 Albumin 4.1 Globulin 3.7 Albumin/Globulin Ratio 1.1 Blood Type Blood Type Confirm Antibody Screen BBK History Checked 11/19/18 11/20/18 11/20/18 20:52 06:00 06:00 WBC 8.0 RBC 3.63 L Hgb 10.2 L Hct 31.2 L MCV 86.0 MCH 28.1 MCHC 32.7 L RDW 14.5 Plt Count 264 MPV Neut % (Auto) Lymph % (Auto) [place] % (Auto) Eos % (Auto) Baso % (Auto) Neut # (Auto) Lymph # (Auto) [place] # (Auto) Eos # (Auto) Baso # (Auto) ESR 68 H 83 H PT INR APTT Sodium 137 Potassium 4.3 Chloride 100 Carbon Dioxide 27 Anion Gap 14 BUN 14 Creatinine 0.6 L Est GFR ( Amer) > 60 Est GFR (Non-Af Amer) > 60 Random Glucose 100 Calcium 9.0 Total Bilirubin 0.4 AST 27 ALT 23 Alkaline Phosphatase 95 Total Protein 6.9 Albumin 3.5 Globulin 3.4 Albumin/Globulin Ratio 1.0 Blood Type Blood Type Confirm Antibody Screen BBK History Checked 11/20/18 11/20/18 06:00 08:36 WBC RBC Hgb Hct MCV MCH MCHC RDW Plt Count MPV Neut % (Auto) Lymph % (Auto) [place] % (Auto) Eos % (Auto) Baso % (Auto) Neut # (Auto) Lymph # (Auto) [place] # (Auto) Eos # (Auto) Baso # (Auto) ESR PT INR APTT Sodium Potassium Chloride Carbon Dioxide Anion Gap BUN Creatinine Est GFR ( Amer) Est GFR (Non-Af Amer) Random Glucose Calcium Total Bilirubin AST ALT Alkaline Phosphatase Total Protein Albumin Globulin Albumin/Globulin Ratio Blood Type O NEGATIVE Blood Type Confirm O NEGATIVE Antibody Screen Negative BBK History Checked No verified bt Assessment & Plan (1) Discitis of multiple sites of spine Status: Acute - Assessment and Plan (Free Text) Assessment: cont IV antibiotics neurosurgical eval await cultures
[2018-11-20 20:20] LABS: BARBITURATES, UR NEGATIVE (NEGATIVE); BENZODIAZEPINES, UR NEGATIVE (NEGATIVE); OPIATES, UR POSITIVE (NEGATIVE); PHENCYCLIDINE, UR NEGATIVE (NEGATIVE)
[2018-11-20] MEDS: Cefepime 2 GM in Sodium Chloride 0.9% 100 ML IVPB SCH (21:40)
--- NOTE | 2018-11-20 22:02 | CARD ---
APPROVED REPORT Date of service: 11/20/2018 EXAM: Two-dimensional and M-mode echocardiogram with Doppler and color Doppler. Other Information Quality : GoodRhythm : NSR INDICATION Dyspnea IVDA 2D DIMENSIONS IVSd0.88 (0.7-1.1cm)LVDd4.69 (3.9-5.9cm) LVOT Diameter2.44 (1.8-2.4cm)PWd0.85 (0.7-1.1cm) IVSs1.29 (0.8-1.2cm)LVDs2.89 (2.5-4.0cm) FS (%) 38.4 %PWs1.48 (0.8-1.2cm) M-Mode DIMENSIONS Left Atrium (MM)3.91 (2.5-4.0cm)IVSd0.88 (0.7-1.1cm) Aortic Root3.09 (2.2-3.7cm)LVDd6.47 (4.0-5.6cm) Aortic Cusp Exc.2.15 (1.5-2.0cm)PWd1.00 (0.7-1.1cm) IVSs1.88 cmFS (%) 41 % LVDs3.82 (2.0-3.8cm)PWs1.94 cm Aortic Valve AoV Peak Flkamhbv111.4cm/sAoV VTI33.9cmAO Peak GR.10mmHg LVOT Peak Ixexxfgm692.4cm/sLVOT VTI23.88cmAO Mean GR.5mmHg JATINDER (VMAX)1.21hq8VON (VTI)1.78cm2 Mitral Valve MV E Isdsipfu37.4cm/sMV DECEL RTHT094mfLR A Icxjpwlo96.2cm/s MV DAN09zjW/A ratio1.7MVA (PHT)4.07cm2 TDI Lateral E' Peak V17.31cm/sMedial E' Peak V12.96cm/sE/Lateral E'5.5 E/Medial E'7.3 LEFT VENTRICLE The left ventricle is normal size. There is normal left ventricular wall thickness. The left ventricular systolic function is normal. The estimated ejection fraction is 60-65% No regional wall motion abnormalities noted.. Transmitral Doppler flow pattern is Grade I-abnormal relaxation pattern. No left ventricle thrombus noted on this study. There is no ventricular septal defect visualized. There is no left ventricular aneurysm. There is no mass noted in the left ventricle. RIGHT VENTRICLE The right ventricle is normal size. There is normal right ventricular wall thickness. The right ventricular systolic function is normal. ATRIA The left atrium size is normal. The right atrium size is normal. The interatrial septum is intact with no evidence for an atrial septal defect. AORTIC VALVE The aortic valve is normal in structure. No aortic regurgitation is present. There is no aortic valvular stenosis. There is no aortic valvular vegetation. MITRAL VALVE The mitral valve is normal in structure. There is no evidence of mitral valve prolapse. There is no mitral valve stenosis. There is no mitral valve regurgitation noted. TRICUSPID VALVE The tricuspid valve is normal in structure. There is mild tricuspid valve regurgitation noted. There is no tricuspid valve prolapse. Cannot rule out vegetation. There is no tricuspid valve stenosis. PULMONIC VALVE The pulmonary valve is normal in structure. There is no pulmonic valvular regurgitation. There is no pulmonic valvular stenosis. GREAT VESSELS The aortic root is normal in size. The ascending aorta is normal in size. The pulmonary artery is normal. The IVC is dilated in size and collapses <50% with inspiration. PERICARDIAL EFFUSION There is no pericardial effusion. There is no pleural effusion. <Conclusion> The estimated ejection fraction is 60-65% Transmitral Doppler flow pattern is Grade I-abnormal relaxation pattern. The left atrium size is normal. There is mild tricuspid valve regurgitation noted. Cannot rule out tricuspid valve vegetation, consider CHETNA if clinically indicated. The IVC is dilated in size and collapses <50% with inspiration.
[2018-11-21] MEDS: Dextrose 5%/0.45% NS 1,000 ML IV SCH ×2 (00:08→05:47)
[2018-11-21] MEDS: METRONIDAZOLE 500 MG/100 ML IVPB SCH (04:30)
[2018-11-21] MEDS: NS IVPB SCH (04:30)
[2018-11-21] MEDS: Cefepime 2 GM in Sodium Chloride 0.9% 100 ML IVPB SCH (05:44)
[2018-11-21 06:35] LABS: HEMOGLOBIN 10.8 g/dL (12.0-18.0); MEAN CELL VOLUME 85.5 fl (80.0-94.0); MEAN CORPUSCULAR HEMOGLOBIN 27.9 pg (27.0-31.0); MEAN CORPUSCULAR HGB CONC 32.7 g/dL (33.0-37.0); RBC 3.88 Mil/uL (4.40-5.90); RED CELL DISTRIBUTION WIDTH 14.5 % (11.5-14.5); WHITE BLOOD COUNT 8.3 K/uL (4.8-10.8)
[2018-11-21 06:48] LABS: BLOOD UREA NITROGEN 22 mg/dl (9-20); GFR NON-AFRICAN AMERICAN > 60
[2018-11-21 06:54] LABS: INR 1.4
[2018-11-21 06:57] LABS: PARTIAL THROMBOPLASTIN TIME 32.5 Seconds (25.6-37.1)
[2018-11-21 08:21] VITALS: BP 150/79; PULSE 50; RESP 19; TEMP 98.1; O2SAT 98
--- NOTE | 2018-11-21 10:19 | CON ---
DATE: 11/20/2018 HISTORY OF PRESENT ILLNESS: This is a 43-year-old intravenous drug abuser, who admits to 2 to 3 months of low back pain, progressive leg weakness, has been using a cane for quite some time. He realized he kind of let himself go, presented to the ER last night, had an MRI which showed diskitis at L1-L2 with cauda equina compression. PAST MEDICAL HISTORY: Most significant for IVDA, hepatitis C positive. He also has some psych issues. All documented in the chart as was his social history, medications, allergies, etc. PHYSICAL EXAMINATION: He does have 5/5 strength throughout the left leg, also distally in the right leg; however, he probably has 3+ to 4 weakness in hip flexors and knee extensors on the right. Sensation is good to light touch. Significant amount of mid low back pain. Gait is not tested. LABORATORY DATA: MRI shows marked enhancement and destruction of the L1-L2 disk with compression of the cauda equina and significant bilateral foraminal stenosis. IMPRESSION AND PLAN: The patient is set to undergo a relatively urgent decompression at the L1-L2 level. This was discussed with the patient, the rationale behind the recommendation, and the risks, complications and alternatives. He is agreeable. We are going to hopefully go ahead as soon as he is medically cleared. Munir Cee MD
--- NOTE | 2018-11-21 11:17 | CP.PCM.DIS ---
Provider - Provider Date of Admission: 11/19/18 20:19 Attending physician: Roosevelt Ryan MD Consults: 11/19/18 20:20 Neuro Surgery Consult Stat Comment: Consulting Provider: Munir Cee Consulting Physician: Munir Cee Reason for Consult: Spinal abscess, disciitis, osteomyelitis 11/20/18 08:00 Infectious Disease Consult Routine Comment: Consulting Provider: Xiang Partida Consulting Physician: Xiang Partida Reason for Consult: Spinal Abscess, OM 11/20/18 11:45 Cardiology Consult Routine Comment: Consulting Provider: Mohamud Gtz Consulting Physician: Mohamud Gtz Reason for Consult: cardiac clearance Time Spent in preparation of Discharge (in minutes): 25 Diagnosis - Discharge Diagnosis (1) IV drug abuse Status: Acute Priority: High (2) Infectious discitis Status: Acute Priority: High (3) Infectious myositis Status: Acute Priority: High (4) Osteomyelitis of lumbar spine Status: Acute Priority: High (5) Spinal abscess Status: Acute Priority: High (6) Weakness of lower extremity Status: Acute Priority: High (7) Dyspnea on exertion Status: Acute Hospital Course - Lab Results Lab Results: Micro Results 11/19/18 17:40 Blood-Venous Blood Culture - Preliminary NO GROWTH AFTER 24 HOURS 11/19/18 17:10 Blood-Venous Blood Culture - Preliminary NO GROWTH AFTER 24 HOURS Most Recent Lab Values WBC 8.3 K/uL (4.8-10.8) 11/21/18 06:21 RBC 3.88 Mil/uL (4.40-5.90) L 11/21/18 06:21 Hgb 10.8 g/dL (12.0-18.0) L 11/21/18 06:21 Hct 33.1 % (35.0-51.0) L 11/21/18 06:21 MCV 85.5 fl (80.0-94.0) 11/21/18 06:21 MCH 27.9 pg (27.0-31.0) 11/21/18 06:21 MCHC 32.7 g/dL (33.0-37.0) L 11/21/18 06:21 RDW 14.5 % (11.5-14.5) 11/21/18 06:21 Plt Count 299 K/uL (130-400) 11/21/18 06:21 MPV 7.2 fl (7.2-11.7) 11/19/18 17:10 Neut % (Auto) 67.8 % (50.0-75.0) 11/19/18 17:10 Lymph % (Auto) 21.8 % (20.0-40.0) 11/19/18 17:10 [place] % (Auto) 8.7 % (0.0-10.0) 11/19/18 17:10 Eos % (Auto) 1.3 % (0.0-4.0) 11/19/18 17:10 Baso % (Auto) 0.4 % (0.0-2.0) 11/19/18 17:10 Neut # (Auto) 5.1 K/uL (1.8-7.0) 11/19/18 17:10 Lymph # (Auto) 1.6 K/uL (1.0-4.3) 11/19/18 17:10 [place] # (Auto) 0.7 K/uL (0.0-0.8) 11/19/18 17:10 Eos # (Auto) 0.1 K/uL (0.0-0.7) 11/19/18 17:10 Baso # (Auto) 0.0 K/uL (0.0-0.2) 11/19/18 17:10 ESR 83 mm/hr (0-15) H 11/20/18 06:00 PT 16.0 Seconds (9.8-13.1) H 11/21/18 06:21 INR 1.4 11/21/18 06:21 APTT 32.5 Seconds (25.6-37.1) 11/21/18 06:21 Sodium 138 mmol/l (132-148) 11/21/18 06:21 Potassium 3.7 MMOL/L (3.6-5.0) 11/21/18 06:21 Chloride 103 mmol/L (98-107) 11/21/18 06:21 Carbon Dioxide 23 mmol/L (22-30) 11/21/18 06:21 Anion Gap 16 (10-20) 11/21/18 06:21 BUN 22 mg/dl (9-20) H 11/21/18 06:21 Creatinine 0.6 mg/dl (0.8-1.5) L 11/21/18 06:21 Est GFR ( Amer) > 60 11/21/18 06:21 Est GFR (Non-Af Amer) > 60 11/21/18 06:21 Random Glucose 108 mg/dL (75-110) 11/21/18 06:21 Calcium 9.0 mg/dL (8.4-10.2) 11/21/18 06:21 Total Bilirubin 0.4 mg/dl (0.2-1.3) 11/20/18 06:00 AST 27 U/L (17-59) 11/20/18 06:00 ALT 23 U/L (21-72) 11/20/18 06:00 Alkaline Phosphatase 95 U/L (38-126) 11/20/18 06:00 Total Protein 6.9 G/DL (6.3-8.2) 11/20/18 06:00 Albumin 3.5 g/dL (3.5-5.0) 11/20/18 06:00 Globulin 3.4 gm/dL (2.2-3.9) 11/20/18 06:00 Albumin/Globulin Ratio 1.0 (1.0-2.1) 11/20/18 06:00 Urine Opiates Screen Positive (NEGATIVE) H 11/20/18 19:55 Urine Methadone Screen Negative (NEGATIVE) 11/20/18 19:55 Ur Barbiturates Screen Negative (NEGATIVE) 11/20/18 19:55 Ur Phencyclidine Scrn Negative (NEGATIVE) 11/20/18 19:55 Ur Amphetamines Screen Negative (NEGATIVE) 11/20/18 19:55 U Benzodiazepines Scrn Negative (NEGATIVE) 11/20/18 19:55 U Oth Cocaine Metabols Negative (NEGATIVE) 11/20/18 19:55 U Cannabinoids Screen Negative (NEGATIVE) 11/20/18 19:55 Blood Type O NEGATIVE 11/20/18 08:36 Blood Type Confirm O NEGATIVE 11/20/18 06:00 Antibody Screen Negative 11/20/18 08:36 BBK History Checked No verified bt 11/20/18 08:36 Discharge Exam - Head Exam Head Exam: ATRAUMATIC, NORMAL INSPECTION, NORMOCEPHALIC Discharge Plan - Follow Up Plan Condition: STABLE Disposition: AGAINST MEDICAL ADVICE Instructions: Osteomyelitis (DC), Abscess (GEN) Additional Instructions: Primary MD: Dr. Shubham Benites Referrals: [facility] [Outside] Xiang Partida MD [Staff Provider] - Munir Cee MD [Staff Provider] -
[2018-11-21 16:56] LABS: HEPATITIS B SURFACE AG Negative (NEGATIVE)
[2018-11-21 17:02] LABS: HEPATITIS A IGM NEGATIVE (NEGATIVE); HEPATITIS B CORE AB NEGATIVE (NEGATIVE)
[2018-11-21 18:17] LABS: HEPATITIS C ANTIBODY REACTIVE (NEGATIVE)
--- NOTE | 2018-11-25 17:22 | PQF ---
PROVIDER RESPONSE TEXT: Patient with history of hepatits C with prolonged INR REVIEWER QUERY TEXT: Medication Correlation for Diagnosis Your help is needed in capturing diagnoses for the corresponding treatment ordered. Please clarify in the documentation diagnoses for the following treatment(s). Treatment: Vitamin K, Transfusion of FFP PT 16.6, 16.0, INR 1.5, 1.4 The patient's Clinical Indicators include: PT 16.6, 16.0, INR 1.5, 1.4 Treatment: Vitamin K, Transfusion of FFP Query created by: Susanne Brock on 11/21/2018 9:10 AM Electronically signed by: Roosevelt Ryan MD 11/25/2018 5:19 PM
== END 2018-11-21 09:00 | disposition left against medical advice (07) | DRG 561 ==
LOC: H.ER 15:59 → H.ERHOLD 20:19 → H.MEDSURG1 23:50
PROVIDERS: ADMIT Internal Medicine; ATTEND Internal Medicine
PROC: 30233K1 Transfusion of Nonautologous Frozen Plasma into Peripheral Vein, Percutaneous Approach (ICD-10-PCS; principal; 2018-11-20)
DX: M46.26 Osteomyelitis of vertebra, lumbar region (principal); G06.1 Intraspinal abscess and granuloma; M60.08 Infective myositis, other site; B19.20 Unspecified viral hepatitis C without hepatic coma; F11.10 Opioid abuse, uncomplicated; G95.29 Other cord compression; M46.46 Discitis, unspecified, lumbar region; F32.9 Major depressive disorder, single episode, unspecified; R53.1 Weakness; G83.4 Cauda equina syndrome; F17.200 Nicotine dependence, unspecified, uncomplicated; M48.061 Spinal stenosis, lumbar region without neurogenic claudication

== ENCOUNTER 2018-11-21 12:37 | Inpatient (IN) | payer MEDICAID ==
[2018-11-21 12:37] VITALS: BMI 21.5
--- NOTE | 2018-11-21 13:42 | ED PDOC ---
HPI: Back Time Seen by Provider: 11/21/18 12:49 Chief Complaint (Nursing): Back Pain Chief Complaint (Provider): Back Pain History Per: Patient History/Exam Limitations: no limitations Onset/Duration Of Symptoms: Days Current Symptoms Are (Timing): Still Present Additional Complaint(s): Marko Ibarra is a 43 year old male with a past medical history of hepatitis C and IV drug abuse who was signed out AMA this morning after being admitted on November 19 for spinal abscess. Patient was admitted and due to have surgery but signed out this morning stating he had no one to care for his dog. He now returns, stating he is ready to be readmitted for treatment of his spinal abscess. He continues to have back pain and bilateral lower extremity weakness with right greater than left that has not changed since last admission. Denies fever chills increased back pain. PMD: Non H provider Past Medical History Reviewed: Historical Data, Nursing Documentation, Vital Signs Vital Signs: Last Vital Signs Temp 99.2 F 11/21/18 12:43 Pulse 77 11/21/18 12:43 Resp 17 11/21/18 12:43 BP 118/61 11/21/18 12:43 Pulse Ox 100 11/21/18 12:43 - Medical History PMH: Anxiety, Back Problems, Bipolar Disorder, Depression, Hepatitis (C), Schizophrenia Denies: Diabetes, HIV, HTN, Chronic Kidney Disease, Seizures, Sexually Transmitted Disease - Surgical History Surgical History: No Surg Hx - Family History Family History: States: Unknown Family Hx - Social History Drugs: Other (IV drugs) - Immunization History Hx Tetanus Toxoid Vaccination: No (unk) Hx Influenza Vaccination: No Hx Pneumococcal Vaccination: (unk) - Home Medications Home Medications: Ambulatory Orders Medication Instructions Recorded Acetaminophen [Tylenol Extra 1,000 mg PO Q8 PRN 11/19/18 Strength] - Allergies Allergies/Adverse Reactions: Allergies Allergy/AdvReac Type Severity Reaction Status Date / Time cat dander Allergy CONGESTION Verified 11/21/18 12:47 dog dander Allergy CONGESTION Verified 11/21/18 12:47 Review of Systems ROS Statement: Except As Marked, All Systems Reviewed And Found Negative Constitutional: Negative for: Fever, Chills Musculoskeletal: Positive for: Back Pain Neurological: Positive for: Weakness (Lower ext. right greater than left) Physical Exam - Reviewed Nursing Documentation Reviewed: Yes Vital Signs Reviewed: Yes - Physical Exam Appears: Positive for: Non-toxic, No Acute Distress Head Exam: Positive for: ATRAUMATIC, NORMOCEPHALIC Pulses-Dorsalis Pedis (L): 2+ Pulses-Dorsalis Pedis (R): 2+ Back: Positive for: Other (bony protuberance in mid back; decreased ROM with flexion of the back (-) ecchymosis; erythema; or purulent drainage noted) Extremity: Positive for: Other (Lower extremity: has a decreased strength in bilateral lower extremity with flexion at the hip with right side greater than the left; normal flexion and extension of bilateral ankles) Neurologic/Psych: Positive for: Alert, Oriented (x3), Other (sensation to light touch intact for bilateral lower extermities) - ECG O2 Sat by Pulse Oximetry: 100 (RA) Pulse Ox Interpretation: Normal Medical Decision Making Medical Decision Making: Time: 1330 Patient re-admitted under Dr. Ryan for surgery of known spinal abscess. Case discussed with Dr. Ryan and no further lab tests required prior to admission. Scribe Attestation: Documented by Trevor Tanner, acting as a scribe for Heydi Best PA-C. Provider Scribe Attestation: All medical record entries made by the Scribe were at my direction and personally dictated by me. I have reviewed the chart and agree that the record accurately reflects my personal performance of the history, physical exam, medical decision making, and the department course for this patient. I have also personally directed, reviewed, and agree with the discharge instructions and disposition. Disposition - Clinical Impression Clinical Impression: Spinal abscess - Patient ED Disposition Is Patient to be Admitted: Yes Discussed With : Roosevelt Rodriguez Seman - Disposition Disposition: Transfer of Care Disposition Time: 13:26 Condition: FAIR
[2018-11-21] MEDS ORDERED: Naproxen 500 MG TAB PO STA (15:34)
[2018-11-21 16:29] LABS: BARBITURATES, UR NEGATIVE (NEGATIVE); BENZODIAZEPINES, UR NEGATIVE (NEGATIVE); OPIATES, UR POSITIVE (NEGATIVE); PHENCYCLIDINE, UR NEGATIVE (NEGATIVE)
--- NOTE | 2018-11-21 19:02 | CP.PCM.HP ---
History of Present Illness - History of Present Illness History of Present Illness: CC: Readmission for Spinal and Paraspinal Abscesses Histoy of Present Illness: A 43 year old male with a history of Hepatitis C and IVDA presents to the ED for evaluation of persistent back pain for 2 months associated with lower extremity weakness . Patient states his right lower extremity has become gradually numb and weak for 1 week. His left lower extremity has also become numb and progressively getting weaker prompting ED visit. Also complaining 1 of an episode of urinary incontinence, but no bowel incontinence. Patient also reports a 30 pound unintended weight loss. He is able to ambulate with a cane and has been taking Tylenol without relief. Patient was treated at [facility] 2 months ago and had a CT performed that revealed questionable rectal thickening. He also has been seen at [facility] for the same symptoms since. Today, he visited [facility], was given a shot of 60 mg of Toradol and referred to the ED. Denies fever and other complaints. Also complaining of Exertion dyspnea of half a block. Denies chest pain, palpitation or leg swelling. In the ER, emergently MRI was done which showed spinal abscess with Discitis and Cord Compression and was hospitalized. Then Patient signed out Yesterday and returned back on the same day for the same problem. Present on Admission - Present on Admission Any Indicators Present on Admission: No Review of Systems - Review of Systems Review of Systems: as per HPI Past Patient History - Infectious Disease Hx of Infectious Diseases: None - Tetanus Immunizations Tetanus Immunization: Unknown - Past Medical History & Family History Past Medical History?: Yes Past Family History: Reviewed and not pertinent - Past Social History Smoking Status: Former Smoker Alcohol: None Drugs: Denies - CARDIAC Hx Hypertension: No - PULMONARY Hx Respiratory Disorders: No Hx Tuberculosis: No - NEUROLOGICAL Hx Seizures: No - HEENT Hx HEENT Problems: No - RENAL Hx Chronic Kidney Disease: No - ENDOCRINE/METABOLIC Hx Endocrine Disorders: No - HEMATOLOGICAL/ONCOLOGICAL Hx Human Immunodeficiency Virus (HIV): No - INTEGUMENTARY Hx Dermatological Problems: No - MUSCULOSKELETAL/RHEUMATOLOGICAL Hx Musculoskeletal Disorders: Yes Hx Back Pain: Yes Hx Falls: Yes - GASTROINTESTINAL Hx Gastrointestinal Disorders: No - GENITOURINARY/GYNECOLOGICAL Hx Sexually Transmitted Disorders: No - PSYCHIATRIC Hx Anxiety: Yes Hx Bipolar Disorder: Yes Hx Depression: Yes Hx Schizophrenia: Yes Hx Substance Use: Yes (Heroine) - SURGICAL HISTORY Hx Surgeries: Yes Hx Orthopedic Surgery: Yes (rt knee) - ANESTHESIA Hx Anesthesia: Yes Hx Anesthesia Reactions: No Hx Malignant Hyperthermia: No Meds Allergies/Adverse Reactions: Allergies Allergy/AdvReac Type Severity Reaction Status Date / Time cat dander Allergy CONGESTION Verified 11/21/18 12:47 dog dander Allergy CONGESTION Verified 11/21/18 12:47 Physical Exam - Constitutional Appears: Well, No Acute Distress - Head Exam Head Exam: ATRAUMATIC, NORMAL INSPECTION, NORMOCEPHALIC - Eye Exam Eye Exam: EOMI, Normal appearance, PERRL Pupil Exam: NORMAL ACCOMODATION, PERRL - ENT Exam ENT Exam: Mucous Membranes Moist, Normal Exam - Neck Exam Neck exam: Positive for: Normal Inspection - Respiratory Exam Respiratory Exam: Clear to Auscultation Bilateral, NORMAL BREATHING PATTERN - Cardiovascular Exam Cardiovascular Exam: REGULAR RHYTHM, +S1, +S2 - GI/Abdominal Exam GI & Abdominal Exam: Normal Bowel Sounds, Soft. absent: Tenderness - Extremities Exam Extremities exam: Positive for: normal capillary refill, normal inspection - Back Exam Back exam: FULL ROM, NORMAL INSPECTION - Neurological Exam Neurological exam: Abnormal Gait, Alert, CN II-XII Intact, Motor Sensory Deficit, Oriented x3 - Psychiatric Exam Psychiatric exam: Normal Affect, Normal Mood - Skin Skin Exam: Dry, Intact, Normal Color, Warm Results - Vital Signs Recent Vital Signs: Last Vital Signs Temp 98.5 F 11/21/18 16:33 Pulse 73 11/21/18 16:33 Resp 20 11/21/18 16:33 BP 132/78 11/21/18 16:33 Pulse Ox 98 11/21/18 16:33 - Labs Result Diagrams: 11/24/18 16:38 11/24/18 16:38 Labs: Laboratory Results - last 24 hr 11/21/18 15:55 Urine Opiates Screen Positive H Urine Methadone Screen Negative Ur Barbiturates Screen Negative Ur Phencyclidine Scrn Negative Ur Amphetamines Screen Negative U Benzodiazepines Scrn Negative U Oth Cocaine Metabols Negative U Cannabinoids Screen Negative - Imaging and Cardiology TTE: Status: Report reviewed by me Additional comment: Normal EF, Mild TVR, Possible Tricaspid Valve regurgitation cannot be ruled out Assessment & Plan (1) Infective endocarditis Status: Acute Priority: Medium (2) Discitis of multiple sites of spine Status: Acute (3) Dyspnea on exertion Status: Acute Priority: High (4) Hepatitis C Status: Acute Priority: Medium (5) IV drug abuse Status: Acute Priority: High (6) Infectious discitis Status: Acute Priority: High (7) Infectious myositis Status: Acute Priority: High (8) Osteomyelitis of lumbar spine Status: Acute Priority: High (9) Spinal abscess Status: Acute Priority: High - Assessment and Plan (Free Text) Plan: IV Vancomycin Iv Cefepime IV Flagyl Neurosurgery, ID and Cardiology consulted Pain Medication PRN Medically Cleared for Spinal Surgery with acceptable risk if Cleared by Window Glazier
[2018-11-21] MEDS: Cefepime 2 GM in Sodium Chloride 0.9% 100 ML IVPB SCH (21:25)
[2018-11-22] MEDS: Cefepime 2 GM in Sodium Chloride 0.9% 100 ML IVPB SCH ×2 (09:07→23:03)
--- NOTE | 2018-11-22 09:39 | CP.PCM.CON ---
History of Present Illness - History of Present Illness History of Present Illness: 43 y/o male readmitted with spinal abscess after he signed out AMA Surgery is planned for Friday 11/24 Pt denies any cardiac Hx No HTN; chest pain; palpitations;SOB/ TALBOT PMH: IVDA Hepatitis C EKG: NSR Echo: Good LV function EF: 60 - 65% Mild TR Past Patient History - Infectious Disease Hx of Infectious Diseases: None - Tetanus Immunizations Tetanus Immunization: Unknown - Past Medical History & Family History Past Medical History?: Yes Past Family History: Reviewed and not pertinent - Past Social History Drugs: Other (IV drugs) - CARDIAC Hx Hypertension: No - PULMONARY Hx Respiratory Disorders: No Hx Tuberculosis: No - NEUROLOGICAL Hx Seizures: No - HEENT Hx HEENT Problems: No - RENAL Hx Chronic Kidney Disease: No - ENDOCRINE/METABOLIC Hx Endocrine Disorders: No - HEMATOLOGICAL/ONCOLOGICAL Hx Human Immunodeficiency Virus (HIV): No - INTEGUMENTARY Hx Dermatological Problems: No - MUSCULOSKELETAL/RHEUMATOLOGICAL Hx Musculoskeletal Disorders: Yes Hx Back Pain: Yes Hx Falls: Yes - GASTROINTESTINAL Hx Gastrointestinal Disorders: No - GENITOURINARY/GYNECOLOGICAL Hx Sexually Transmitted Disorders: No - PSYCHIATRIC Hx Anxiety: Yes Hx Bipolar Disorder: Yes Hx Depression: Yes Hx Schizophrenia: Yes - SURGICAL HISTORY Hx Surgeries: Yes Hx Orthopedic Surgery: Yes (rt knee) - ANESTHESIA Hx Anesthesia: Yes Hx Anesthesia Reactions: No Hx Malignant Hyperthermia: No Meds Allergies/Adverse Reactions: Allergies Allergy/AdvReac Type Severity Reaction Status Date / Time cat dander Allergy CONGESTION Verified 11/21/18 12:47 dog dander Allergy CONGESTION Verified 11/21/18 12:47 - Medications Medications: Current Medications Heparin Sodium (Porcine) (Heparin) 5,000 units SC Q8 SENA; Protocol Last Admin: 11/22/18 09:10 Dose: 5,000 units Cefepime HCl 2 gm/ Sodium (Chloride) 100 mls @ 100 mls/hr IVPB Q12 SENA; Protocol Last Admin: 11/22/18 09:07 Dose: 100 mls/hr Vancomycin HCl 1 gm/ Sodium (Chloride) 250 mls @ 166.667 mls/hr IVPB Q12 SENA; Protocol Metronidazole (Flagyl 500mg/100ml Ns) 100 mls @ 100 mls/hr IVPB Q8 SENA; Protocol Ketorolac Tromethamine (Toradol) 15 mg IM Q6 PRN PRN Reason: Pain, moderate (4-7) Last Admin: 11/22/18 04:01 Dose: 15 mg Ketorolac Tromethamine (Toradol) 30 mg IVP Q6 PRN PRN Reason: Pain, severe (8-10) Physical Exam - Constitutional Appears: Well - Respiratory Exam Respiratory Exam: NORMAL BREATHING PATTERN - Cardiovascular Exam Cardiovascular Exam: REGULAR RHYTHM Results - Vital Signs Recent Vital Signs: Last Vital Signs Temp 97.2 F L 11/22/18 08:42 Pulse 56 L 11/22/18 08:42 Resp 21 11/22/18 08:42 BP 134/71 11/22/18 08:42 Pulse Ox 96 11/22/18 08:42 - Labs Labs: Laboratory Results - last 24 hr 11/21/18 15:55 Urine Opiates Screen Positive H Urine Methadone Screen Negative Ur Barbiturates Screen Negative Ur Phencyclidine Scrn Negative Ur Amphetamines Screen Negative U Benzodiazepines Scrn Negative U Oth Cocaine Metabols Negative U Cannabinoids Screen Negative Assessment & Plan (1) Spinal abscess Assessment and Plan: The patient is cleared for surgery Status: Acute Priority: High (2) Hepatitis C Status: Acute (3) IV drug abuse Status: Acute Priority: High
[2018-11-22] MEDS: metroNIDAZOLE 500mg/100ml NS 100 ML IVPB SCH ×2 (10:34→17:45)
[2018-11-22] MEDS ORDERED: Morphine 4 MG/ML VIAL IVP STA (19:39)
[2018-11-22] MEDS ORDERED: Morphine 5 MG/ML SYRINGE IVP STA (19:46)
[2018-11-23] MEDS ORDERED: Morphine 5 MG/ML SYRINGE IVP STA (01:45)
[2018-11-23] MEDS: metroNIDAZOLE 500mg/100ml NS 100 ML IVPB SCH ×3 (02:08→17:17)
[2018-11-23] MEDS: Cefepime 2 GM in Sodium Chloride 0.9% 100 ML IVPB SCH ×2 (08:52→23:35)
--- NOTE | 2018-11-23 13:15 | CP.PCM.CON ---
History of Present Illness - History of Present Illness History of Present Illness: 43 year old male with a history of Hepatitis C and IVDA returns to the ED for evaluation of persistent back pain for three months associated with lower extremity weakness. He was scheduled for surgery but signed out AMAS last week in order to care for his pets Patient states his right lower extremity has become gradually numb since onset of back pain. His left lower extremity has also become numb, He reports 1 episode of urinary incontinence, but no bowel incontinence. Patient also reports a 30 pound unintended weight loss. He is able to ambulate with a cane Patient was treated at [facility] 2 months ago He has been seen at [facility] for the same symptoms. Started on IV antibiotics Neurosurgical intervention planned after cardiac clearance PMH: Anxiety, Back Problems, Bipolar Disorder, Depression, Hepatitis (C), Schizophrenia Denies: Diabetes, HIV, HTN, Chronic Kidney Disease, Seizures, Sexually Transmitted Disease Review of Systems - Review of Systems All systems: reviewed and no additional remarkable complaints except - Constitutional Constitutional: As Per HPI. absent: Chills, Fever - EENT Eyes: absent: As Per HPI, Blind Spots, Blurred Vision, Change in Vision, Decreased Night Vision, Diplopia, Discharge, Dry Eye, Exophthalmos, Floaters, Irritation, Itchy Eyes, Loss of Peripheral Vision, Pain, Photophobia, Requires Corrective Lenses, Sees Flashes, Spots in Vision, Tunnel Vision, Other Visual Disturbances, Loss of Vision, Other Ears: absent: As Per HPI, Decreased Hearing, Ear Discharge, Ear Pain, Tinnitus, Abnormal Hearing, Disequilibrium, Dizziness, Other Nose/Mouth/Throat: absent: As Per HPI, Epistaxis, Nasal Congestion, Nasal Discharge, Nasal Obstruction, Nasal Trauma, Nose Pain, Post Nasal Drip, Sinus Pain, Sinus Pressure, Bleeding Gums, Change in Voice, Dental Pain, Dry Mouth, Dysphagia, Halitosis, Hoarsness, Lip Swelling, Mouth Lesions, Mouth Pain, Odynophagia, Sore Throat, Throat Swelling, Tongue Swelling, Facial Pain, Neck Pain, Neck Mass, Other - Cardiovascular Cardiovascular: absent: As Per HPI, Acrocyanosis, Chest Pain, Chest Pain at Rest, Chest Pain with Activity, Claudication, Diaphoresis, Dyspnea, Dyspnea on Exertion, Edema, Irregular Heart Rhythm, Pain Radiating to Arm/Neck/Jaw, Leg Edema, Leg Ulcers, Lightheadedness, Orthopnea, Palpitations, Paroxysmal Nocturnal Dyspnea, Pedal Edema, Radiating Pain, Rapid Heart Rate, Slow Heart Rate, Syncope, Other - Respiratory Respiratory: absent: As Per HPI, Cough, Dyspnea, Hemoptysis, Dyspnea on Exertion, Wheezing, Snoring, Stridor, Pain on Inspiration, Chest Congestion, Excessive Mucous Production, Change in Mucous Color, Pain with Coughing, Other - Gastrointestinal Gastrointestinal: absent: As Per HPI, Abdominal Pain, Belching, Bloating, Change in Bowel Habits, Change in Stool Character, Coffee Ground Emesis, Constipation, Cramping, Diarrhea, Dyspepsia, Dysphagia, Early Satiety, Excessive Flatus, Fecal Incontinence, Heartburn, Hematemesis, Hematochezia, Loose Stools, Melena, Nausea, Odynophagia, Temesmus, Vomiting, Other - Genitourinary Genitourinary: absent: As Per HPI, Change in Urinary Stream, Difficulty Urinating, Dysuria, Flank Pain, Hematuria, Pyuria, Nocturia, Urinary Incontinence, Urinary Frequency, Urinary Hesitance, Urinary Urgency, Voiding Freq/Small Amts, Freq UTI, Hx Renal/Bladder Calculi, Hx /Renal Surgery, Bladder Distension, Other - Musculoskeletal Musculoskeletal: As Per HPI - Integumentary Integumentary: As Per HPI. absent: Acne, Alopecia, Bleeding Lesions, Change in Hair, Change in Nails, Change in Pigmentation, Changing Lesions, Dry Skin, Erythema, Furuncle, Hirsutism, Lesions, New Lesions, Non-Healing Lesions, Photosensitivity, Pruritus, Rash, Skin Pain, Skin Ulcer, Sores, Striae, Swelling, Unusual Bruising, Wounds, Jaundice, Other - Neurological Neurological: As Per HPI, Focal Weakness, Paresthesias - Psychiatric Psychiatric: absent: As Per HPI, Abnormal Sleep Pattern, Anhedonia, Anxiety, Auditory Hallucinations, Behavioral Changes, Change in Appetite, Change in Libido, Confusion, Depression, Difficulty Concentrating, Hallucinations, Homicidal Ideation, Hopelessness, Irritability, Memory Loss, Mood Swings, Panic Attacks, Paranoia, Suicidal Ideation, Visual Hallucinations, Tactile Hallucinations, Other - Endocrine Endocrine: absent: As Per HPI, Change in Body Appearance, Change in Libido, Cold Intolorance, Deepening of Voice, Excessive Sweating, Fatigue, Flushing, Heat Intolorance, Increase in Ring/Shoe/Hat Size, Palpitations, Polydipsia, Polyphagia, Polyuria, Other - Hematologic/Lymphatic Hematologic: absent: As Per HPI, Easy Bleeding, Easy Bruising, Lymphadenopathy, Other Past Patient History - Infectious Disease Hx of Infectious Diseases: None - Tetanus Immunizations Tetanus Immunization: Unknown - Past Medical History & Family History Past Medical History?: Yes Past Family History: Reviewed and not pertinent - Past Social History Drugs: Other (IV drugs) - CARDIAC Hx Hypertension: No - PULMONARY Hx Respiratory Disorders: No Hx Tuberculosis: No - NEUROLOGICAL Hx Seizures: No - HEENT Hx HEENT Problems: No - RENAL Hx Chronic Kidney Disease: No - ENDOCRINE/METABOLIC Hx Endocrine Disorders: No - HEMATOLOGICAL/ONCOLOGICAL Hx Human Immunodeficiency Virus (HIV): No - INTEGUMENTARY Hx Dermatological Problems: No - MUSCULOSKELETAL/RHEUMATOLOGICAL Hx Musculoskeletal Disorders: Yes Hx Back Pain: Yes Hx Falls: Yes - GASTROINTESTINAL Hx Gastrointestinal Disorders: No - GENITOURINARY/GYNECOLOGICAL Hx Sexually Transmitted Disorders: No - PSYCHIATRIC Hx Anxiety: Yes Hx Bipolar Disorder: Yes Hx Depression: Yes Hx Schizophrenia: Yes - SURGICAL HISTORY Hx Surgeries: Yes Hx Orthopedic Surgery: Yes (rt knee) - ANESTHESIA Hx Anesthesia: Yes Hx Anesthesia Reactions: No Hx Malignant Hyperthermia: No Meds Allergies/Adverse Reactions: Allergies Allergy/AdvReac Type Severity Reaction Status Date / Time cat dander Allergy CONGESTION Verified 11/21/18 12:47 dog dander Allergy CONGESTION Verified 11/21/18 12:47 - Medications Medications: Current Medications Heparin Sodium (Porcine) (Heparin) 5,000 units SC Q8 SENA; Protocol Last Admin: 11/23/18 08:40 Dose: 5,000 units Cefepime HCl 2 gm/ Sodium (Chloride) 100 mls @ 100 mls/hr IVPB Q12 SENA; Protocol Last Admin: 11/23/18 08:52 Dose: 100 mls/hr Vancomycin HCl 1 gm/ Sodium (Chloride) 250 mls @ 166.667 mls/hr IVPB Q12 SENA; Protocol Last Admin: 11/23/18 11:24 Dose: 166.667 mls/hr Metronidazole (Flagyl 500mg/100ml Ns) 100 mls @ 100 mls/hr IVPB Q8 SENA; Protocol Last Admin: 11/23/18 08:36 Dose: 100 mls/hr Ketorolac Tromethamine (Toradol) 30 mg IVP Q6 PRN PRN Reason: Pain, severe (8-10) Last Admin: 11/23/18 08:34 Dose: 30 mg Tramadol HCl (Ultram) 50 mg PO Q6 PRN PRN Reason: Pain, moderate (4-7) Last Admin: 11/23/18 11:22 Dose: 50 mg Physical Exam - Constitutional Appears: Non-toxic, No Acute Distress, Chronically Ill - Head Exam Head Exam: ATRAUMATIC, NORMAL INSPECTION, NORMOCEPHALIC - Eye Exam Eye Exam: PERRL. absent: Scleral icterus - ENT Exam ENT Exam: Mucous Membranes Dry, Normal External Ear Exam - Neck Exam Neck exam: Negative for: Lymphadenopathy - Respiratory Exam Respiratory Exam: Decreased Breath Sounds, Clear to Auscultation Bilateral - Cardiovascular Exam Cardiovascular Exam: REGULAR RHYTHM, +S1, +S2 - GI/Abdominal Exam GI & Abdominal Exam: Diminished Bowel Sounds, Distended, Soft. absent: Rebound, Rigid, Tenderness - Rectal Exam Rectal Exam: Deferred - Exam Exam: NORMAL INSPECTION - Extremities Exam Extremities exam: Positive for: pedal pulses present. Negative for: calf tenderness, pedal edema, tenderness - Back Exam Back exam: absent: CVA tenderness (L), CVA tenderness (R), paraspinal tenderness - Neurological Exam Neurological exam: Abnormal Gait, Alert, CN II-XII Intact, Motor Sensory Deficit, Oriented x3 Additional comments: able to lift left leg off the bed right leg - unable to lift against gravity walks byu dragging right leg behind - Psychiatric Exam Psychiatric exam: Depressed - Skin Skin Exam: Dry Results - Vital Signs Recent Vital Signs: Last Vital Signs Temp 98.5 F 11/22/18 23:52 Pulse 57 L 11/22/18 23:52 Resp 20 11/22/18 23:52 BP 135/77 11/22/18 23:52 Pulse Ox 100 11/22/18 23:52 Assessment & Plan (1) Spinal abscess Status: Acute Priority: High (2) Infective endocarditis Status: Acute (3) Arthralgia Status: Acute (4) Depression Status: Acute (5) Discitis of multiple sites of spine Status: Acute (6) Drug abuse Status: Acute (7) Drug dependence Status: Acute (8) Hepatitis C Status: Acute (9) IV drug abuse Status: Acute Priority: High (10) Infectious discitis Status: Acute Priority: High (11) Opiate addiction Status: Acute (12) Opiate use Status: Acute (13) Osteomyelitis of lumbar spine Status: Acute Priority: High (14) Weakness of lower extremity Status: Acute Priority: High - Assessment and Plan (Free Text) Assessment: for OR with decompression and fixation spine discussed with patient the strong possibility he may never regain use of right leg will cont empiric IV antibiotics
[2018-11-23] MEDS: Sucralfate 1 gm/10 ml Oral Susp UD PO SCH ×2 (17:14→21:13)
--- NOTE | 2018-11-23 19:06 | CP.PCM.PN ---
Subjective - Date & Time of Evaluation Date of Evaluation: 11/22/18 Objective - Vital Signs/Intake and Output Vital Signs (last 24 hours): Temp Pulse Resp BP Pulse Ox 99.1 F 52 L 20 151/90 H 100 11/23/18 15:51 11/23/18 15:51 11/23/18 15:51 11/23/18 15:51 11/23/18 15:51 - Medications Medications: Current Medications Heparin Sodium (Porcine) (Heparin) 5,000 units SC Q8 SENA; Protocol Last Admin: 11/23/18 17:17 Dose: 5,000 units Cefepime HCl 2 gm/ Sodium (Chloride) 100 mls @ 100 mls/hr IVPB Q12 SENA; Protocol Last Admin: 11/23/18 08:52 Dose: 100 mls/hr Vancomycin HCl 1 gm/ Sodium (Chloride) 250 mls @ 166.667 mls/hr IVPB Q12 SENA; Protocol Last Admin: 11/23/18 11:24 Dose: 166.667 mls/hr Metronidazole (Flagyl 500mg/100ml Ns) 100 mls @ 100 mls/hr IVPB Q8 SENA; Protocol Last Admin: 11/23/18 17:17 Dose: 100 mls/hr Ketorolac Tromethamine (Toradol) 30 mg IVP Q6 PRN PRN Reason: Pain, severe (8-10) Last Admin: 11/23/18 15:20 Dose: 30 mg Sucralfate (Carafate Oral Susp) 1 gm PO Q6H SENA Last Admin: 11/23/18 17:14 Dose: 1 gm Tramadol HCl (Ultram) 50 mg PO Q6 PRN PRN Reason: Pain, moderate (4-7) Last Admin: 11/23/18 17:17 Dose: 50 mg Assessment and Plan (1) Infective endocarditis Status: Acute (2) Discitis of multiple sites of spine Status: Acute (3) Dyspnea on exertion Status: Acute (4) Hepatitis C Status: Acute (5) IV drug abuse Status: Acute (6) Infectious discitis Status: Acute (7) Infectious myositis Status: Acute (8) Osteomyelitis of lumbar spine Status: Acute (9) Spinal abscess Status: Acute
[2018-11-23] MEDS ORDERED: Morphine 5 MG/ML SYRINGE IVP ONE (23:08)
[2018-11-24] MEDS: metroNIDAZOLE 500mg/100ml NS 100 ML IVPB SCH ×3 (01:16→16:22)
[2018-11-24] MEDS: Sucralfate 1 gm/10 ml Oral Susp UD PO SCH ×4 (03:14→21:02)
[2018-11-24] MEDS: Cefepime 2 GM in Sodium Chloride 0.9% 100 ML IVPB SCH ×2 (10:10→20:07)
--- NOTE | 2018-11-24 11:46 | CP.PCM.PN ---
Subjective - Date & Time of Evaluation Date of Evaluation: 11/24/18 Time of Evaluation: 09:00 - Subjective Subjective: 43 year old male with a history of Hepatitis C and IVDA returns to the ED for evaluation of persistent back pain for three months associated with lower extremity weakness. He was scheduled for surgery but signed out AMAS last week in order to care for his pets Patient states his right lower extremity has become gradually numb since onset of back pain. His left lower extremity has also become numb, He reports 1 episode of urinary incontinence, but no bowel incontinence. Patient also reports a 30 pound unintended weight loss. He is able to ambulate with a cane Patient was treated at [facility] 2 months ago He has been seen at [facility] for the same symptoms. Started on IV antibiotics Neurosurgical intervention planned after cardiac clearance Objective - Vital Signs/Intake and Output Vital Signs (last 24 hours): Temp Pulse Resp BP Pulse Ox 98.0 F 51 L 19 155/86 H 100 11/24/18 09:00 11/24/18 09:00 11/24/18 09:00 11/24/18 09:00 11/24/18 09:00 - Medications Medications: Current Medications Heparin Sodium (Porcine) (Heparin) 5,000 units SC Q8 SENA; Protocol Last Admin: 11/24/18 09:11 Dose: 5,000 units Cefepime HCl 2 gm/ Sodium (Chloride) 100 mls @ 100 mls/hr IVPB Q12 SENA; Protocol Last Admin: 11/24/18 10:10 Dose: 100 mls/hr Vancomycin HCl 1 gm/ Sodium (Chloride) 250 mls @ 166.667 mls/hr IVPB Q12 SENA; Protocol Last Admin: 11/23/18 21:12 Dose: 166.667 mls/hr Metronidazole (Flagyl 500mg/100ml Ns) 100 mls @ 100 mls/hr IVPB Q8 SENA; Protocol Last Admin: 11/24/18 09:10 Dose: 100 mls/hr Ketorolac Tromethamine (Toradol) 30 mg IVP Q6 PRN PRN Reason: Pain, severe (8-10) Last Admin: 11/24/18 03:13 Dose: 30 mg Sucralfate (Carafate Oral Susp) 1 gm PO Q6H SENA Last Admin: 11/24/18 09:11 Dose: 1 gm Tramadol HCl (Ultram) 50 mg PO Q6 PRN PRN Reason: Pain, moderate (4-7) Last Admin: 11/24/18 09:08 Dose: 50 mg - Constitutional Appears: Well - Head Exam Head Exam: ATRAUMATIC, NORMAL INSPECTION, NORMOCEPHALIC - Eye Exam Eye Exam: EOMI, Normal appearance, PERRL Pupil Exam: NORMAL ACCOMODATION, PERRL - ENT Exam ENT Exam: Mucous Membranes Moist, Normal Exam - Neck Exam Neck Exam: Full ROM, Normal Inspection. absent: Lymphadenopathy - Respiratory Exam Respiratory Exam: Clear to Ausculation Bilateral, NORMAL BREATHING PATTERN - Cardiovascular Exam Cardiovascular Exam: REGULAR RHYTHM, +S1, +S2. absent: Murmur - GI/Abdominal Exam GI & Abdominal Exam: Soft, Diminished Bowel Sounds. absent: Tenderness - Rectal Exam Rectal Exam: Deferred - Exam Exam: NORMAL INSPECTION - Extremities Exam Extremities Exam: Full ROM, Normal Capillary Refill, Normal Inspection. absent: Joint Swelling, Pedal Edema - Back Exam Back Exam: paraspinal tenderness, tenderness, vertebral tenderness. absent: CVA tenderness (L), CVA tenderness (R), Full ROM, NORMAL INSPECTION - Neurological Exam Neuro motor strength exam: Left Upper Extremity: 4, Right Upper Extremity: 4, Left Lower Extremity: 0, Right Lower Extremity: 2/1 - Psychiatric Exam Psychiatric exam: Normal Affect, Normal Mood - Skin Skin Exam: Dry, Intact, Normal Color, Warm Assessment and Plan (1) Spinal abscess Status: Acute (2) Infective endocarditis Status: Acute (3) Arthralgia Status: Acute (4) Depression Status: Acute (5) Discitis of multiple sites of spine Status: Acute (6) Drug abuse Status: Acute (7) Drug dependence Status: Acute (8) Hepatitis C Status: Acute (9) IV drug abuse Status: Acute (10) Infectious discitis Status: Acute (11) Opiate addiction Status: Acute (12) Opiate use Status: Acute (13) Osteomyelitis of lumbar spine Status: Acute (14) Weakness of lower extremity Status: Acute - Assessment and Plan (Free Text) Assessment: 43 year old male with a history of Hepatitis C and IVDA returns to the ED for evaluation of persistent back pain for three months associated with lower extremity weakness. He was scheduled for surgery but signed out AMAS last week in order to care for his pets Patient states his right lower extremity has become gradually numb since onset of back pain. His left lower extremity has also become numb, He reports 1 episode of urinary incontinence, but no bowel incontinence. Patient also reports a 30 pound unintended weight loss. He is able to ambulate with a cane Patient was treated at [facility] 2 months ago He has been seen at [facility] for the same symptoms. Started on IV antibiotics Neurosurgical intervention planned after cardiac clearance
--- NOTE | 2018-11-24 12:28 | CP.PCM.PCO ---
Assessment & Plan - Assessment and Plan (Free Text) Assessment: pt. seen and examined ,Treatment plan discussed with patient ; pt. for OR in am for decompression / fixation; pt. signed AMA last week and returned to ED; procedure is rescheduled for tomorrow. Pt. notified that he cannot leave the hospital while in treatment for recreational substance abuse and if he does he will nor be able to continue the current course of treatment. Patient understands the risks and benefits.
[2018-11-24 17:11] LABS: MEAN CELL VOLUME 86.3 fl (80.0-94.0); MEAN CORPUSCULAR HEMOGLOBIN 28.2 pg (27.0-31.0); MEAN CORPUSCULAR HGB CONC 32.7 g/dL (33.0-37.0); RBC 3.91 Mil/uL (4.40-5.90); RED CELL DISTRIBUTION WIDTH 14.8 % (11.5-14.5); WHITE BLOOD COUNT 8.4 K/uL (4.8-10.8)
[2018-11-24 17:23] LABS: INR 1.3; PROTHROMBIN TIME 15.1 Seconds (9.8-13.1)
[2018-11-24 17:25] LABS: PARTIAL THROMBOPLASTIN TIME 31.6 Seconds (25.6-37.1)
[2018-11-24 17:29] LABS: BLOOD UREA NITROGEN 15 mg/dl (9-20); CALCIUM 8.7 mg/dL (8.4-10.2); GFR NON-AFRICAN AMERICAN > 60
[2018-11-25] MEDS ORDERED: Dextrose 5%/0.9% NS 1,000 ML IV SCH
[2018-11-25] MEDS: metroNIDAZOLE 500mg/100ml NS 100 ML IVPB SCH ×3 (00:30→17:42)
--- NOTE | 2018-11-25 01:40 | CP.PCM.PN ---
Subjective - Date & Time of Evaluation Date of Evaluation: 11/24/18 Time of Evaluation: 19:05 - Subjective Subjective: Seen and examined at the bed side. Continue to complain Lower back and Paraspinal pain 8-10/10 associated with B/L Lower extremity weakness, Left more than right. Denies loss of sphincter Control. Scheduled for tomorrow for OR by Neurosurgery for Spinal and Para-Spinal Abscesses. Cardiology Clearance appreciated. Patient to receive FFP for borderline high INR. Objective - Vital Signs/Intake and Output Vital Signs (last 24 hours): Temp Pulse Resp BP Pulse Ox 99.1 F 57 L 20 137/88 100 11/24/18 23:54 11/24/18 23:54 11/24/18 23:54 11/24/18 23:54 11/24/18 23:54 - Medications Medications: Current Medications Cefepime HCl 2 gm/ Sodium (Chloride) 100 mls @ 100 mls/hr IVPB Q12 SENA; Protocol Last Admin: 11/24/18 20:07 Dose: 100 mls/hr Vancomycin HCl 1 gm/ Sodium (Chloride) 250 mls @ 166.667 mls/hr IVPB Q12 SENA; Protocol Last Admin: 11/24/18 21:02 Dose: 166.667 mls/hr Metronidazole (Flagyl 500mg/100ml Ns) 100 mls @ 100 mls/hr IVPB Q8 SENA; Protocol Last Admin: 11/25/18 00:30 Dose: 100 mls/hr Dextrose/Sodium Chloride (Dextrose 5%/0.9% Ns 1000 Ml) 1,000 mls @ 100 mls/hr IV .Q10H SENA Stop: 11/25/18 18:54 Last Admin: 11/25/18 00:01 Dose: 100 mls/hr Ketorolac Tromethamine (Toradol) 30 mg IVP Q6 PRN PRN Reason: Pain, severe (8-10) Last Admin: 11/24/18 20:06 Dose: 30 mg Sucralfate (Carafate Oral Susp) 1 gm PO Q6H SENA Last Admin: 11/24/18 21:02 Dose: 1 gm Tramadol HCl (Ultram) 50 mg PO Q6 PRN PRN Reason: Pain, moderate (4-7) Last Admin: 11/24/18 22:52 Dose: 50 mg - Labs Labs: 11/24/18 16:38 11/24/18 16:38 PT 15.1 Seconds (9.8-13.1) H 11/24/18 16:38 INR 1.3 11/24/18 16:38 APTT 31.6 Seconds (25.6-37.1) 11/24/18 16:38 Assessment and Plan (1) Infective endocarditis Status: Acute (2) Discitis of multiple sites of spine Status: Acute (3) Dyspnea on exertion Status: Acute (4) Hepatitis C Status: Acute (5) IV drug abuse Status: Acute (6) Infectious discitis Status: Acute (7) Infectious myositis Status: Acute (8) Osteomyelitis of lumbar spine Status: Acute (9) Spinal abscess Status: Acute - Assessment and Plan (Free Text) Plan: Continue Current Care NPO past midnight Ambien 5mg Qhs Transfuse FFP Medically Cleared for Surgery with acceptable risk.
[2018-11-25] MEDS: Sucralfate 1 gm/10 ml Oral Susp UD PO SCH ×5 (03:30→21:18)
[2018-11-25 06:18] LABS: HEMOGLOBIN 10.5 g/dL (12.0-18.0); MEAN CELL VOLUME 86.1 fl (80.0-94.0); MEAN CORPUSCULAR HEMOGLOBIN 28.3 pg (27.0-31.0); MEAN CORPUSCULAR HGB CONC 32.9 g/dL (33.0-37.0); RBC 3.71 Mil/uL (4.40-5.90); RED CELL DISTRIBUTION WIDTH 15.3 % (11.5-14.5); WHITE BLOOD COUNT 7.6 K/uL (4.8-10.8)
[2018-11-25 06:34] LABS: BLOOD UREA NITROGEN 12 mg/dl (9-20); CALCIUM 8.6 mg/dL (8.4-10.2); GFR NON-AFRICAN AMERICAN > 60
[2018-11-25] MEDS ORDERED: Absorbable Gelatin Sponge Size 12-7 ONE (08:01)
[2018-11-25] MEDS ORDERED: Lidocaine 1% w Epi 1:100,000 Inj ONE (08:01)
[2018-11-25] MEDS ORDERED: Bupivacaine 0.5% Inj(30mL) ONE (08:01)
[2018-11-25] MEDS ORDERED: Thrombin Topical 5,000 Int Units Spray Kit ONE (08:01)
[2018-11-25] MEDS ORDERED: Bacitracin Ointment 30 GM TUBE ONE (08:15)
[2018-11-25] MEDS: Cefepime 2 GM in Sodium Chloride 0.9% 100 ML IVPB SCH ×2 (10:11→20:38)
[2018-11-25] MEDS ORDERED: Succinylcholine Chloride 20 mg/ml Syr (5 ml) IV ONE (10:31)
[2018-11-25] MEDS ORDERED: Rocuronium 10 mg/ml (5 ml) ONE (10:31)
[2018-11-25] MEDS ORDERED: Lidocaine 4% (Laryng-O-Jet) Kit MM ONE (10:31)
[2018-11-25] MEDS ORDERED: Propofol 10 mg/ml Inj (20 ML) ONE (10:31)
[2018-11-25] MEDS ORDERED: Midazolam 2 MG/2 ML VIAL ONE (10:31)
[2018-11-25] MEDS ORDERED: Remifentanil 2 MG PDS IV ONE (10:34)
[2018-11-25] MEDS ORDERED: Propofol 10 mg/ml 2,000 MG/200 ML VIAL ONE (10:35)
[2018-11-25] MEDS ORDERED: Lactated Ringer's 1,000 ML IV ONE ×2 (12:03)
--- NOTE | 2018-11-25 12:08 | CP.PCM.PN ---
Subjective - Date & Time of Evaluation Date of Evaluation: 11/25/18 Time of Evaluation: 07:00 - Subjective Subjective: events noted IV rx in progress Objective - Vital Signs/Intake and Output Vital Signs (last 24 hours): Temp Pulse Resp BP Pulse Ox 98.4 F 80 20 157/92 H 97 11/25/18 07:54 11/25/18 07:54 11/25/18 07:54 11/25/18 07:54 11/25/18 07:54 - Medications Medications: Current Medications Cefepime HCl 2 gm/ Sodium (Chloride) 100 mls @ 100 mls/hr IVPB Q12 SENA; Protocol Last Admin: 11/25/18 10:11 Dose: Not Given Vancomycin HCl 1 gm/ Sodium (Chloride) 250 mls @ 166.667 mls/hr IVPB Q12 SENA; Protocol Last Admin: 11/25/18 08:26 Dose: 166.667 mls/hr Metronidazole (Flagyl 500mg/100ml Ns) 100 mls @ 100 mls/hr IVPB Q8 SENA; Protocol Last Admin: 11/25/18 08:24 Dose: 100 mls/hr Dextrose/Sodium Chloride (Dextrose 5%/0.9% Ns 1000 Ml) 1,000 mls @ 100 mls/hr IV .Q10H SENA Stop: 11/25/18 18:54 Last Admin: 11/25/18 00:01 Dose: 100 mls/hr Ketorolac Tromethamine (Toradol) 30 mg IVP Q6 PRN PRN Reason: Pain, severe (8-10) Last Admin: 11/25/18 02:05 Dose: 30 mg Sucralfate (Carafate Oral Susp) 1 gm PO Q6H SENA Last Admin: 11/25/18 09:37 Dose: Not Given Tramadol HCl (Ultram) 50 mg PO Q6 PRN PRN Reason: Pain, moderate (4-7) Last Admin: 11/24/18 22:52 Dose: 50 mg - Labs Labs: 11/25/18 05:35 11/25/18 05:35 PT 15.1 Seconds (9.8-13.1) H 11/24/18 16:38 INR 1.3 11/24/18 16:38 APTT 31.6 Seconds (25.6-37.1) 11/24/18 16:38 - Constitutional Appears: No Acute Distress, Chronically Ill - Head Exam Head Exam: NORMOCEPHALIC - Eye Exam Eye Exam: absent: Scleral icterus - ENT Exam ENT Exam: Mucous Membranes Dry - Neck Exam Neck Exam: absent: Lymphadenopathy - Respiratory Exam Respiratory Exam: Decreased Breath Sounds - Cardiovascular Exam Cardiovascular Exam: REGULAR RHYTHM - GI/Abdominal Exam GI & Abdominal Exam: Distended - Rectal Exam Rectal Exam: Deferred - Exam Exam: NORMAL INSPECTION - Extremities Exam Extremities Exam: absent: Pedal Edema - Back Exam Back Exam: absent: CVA tenderness (L), CVA tenderness (R) - Neurological Exam Neurological Exam: Alert, Awake, Oriented x3 Neuro motor strength exam: Left Upper Extremity: 5, Right Upper Extremity: 5, Left Lower Extremity: 3, Right Lower Extremity: 2/1 - Psychiatric Exam Psychiatric exam: Depressed - Skin Skin Exam: Dry Assessment and Plan (1) Spinal abscess Status: Acute (2) Infective endocarditis Status: Acute (3) Arthralgia Status: Acute (4) Depression Status: Acute (5) Discitis of multiple sites of spine Status: Acute (6) Drug abuse Status: Acute (7) Drug dependence Status: Acute (8) Hepatitis C Status: Acute (9) IV drug abuse Status: Acute (10) Infectious discitis Status: Acute (11) Opiate addiction Status: Acute (12) Opiate use Status: Acute (13) Osteomyelitis of lumbar spine Status: Acute (14) Weakness of lower extremity Status: Acute - Assessment and Plan (Free Text) Assessment: diskitis/ spinal abscess possible endocarditis cont iv rx for 6- 8 weeks may need [facility] or LTAC
[2018-11-25] MEDS ORDERED: Cefepime (Maxipime) 2 g Inj IVPB ONE (12:22)
[2018-11-25] MEDS ORDERED: Lidocaine/Epi 1% 1:100000 20 ML IJ ONE (12:38)
[2018-11-25] MEDS ORDERED: Thrombin Topical 5,000 Int Units Spray Kit TOP ONE (13:00)
[2018-11-25] MEDS ORDERED: HEMOSTATIC MATRIX 10 ML DIS.NEEDLE TOP ONE (13:00)
[2018-11-25] MEDS ORDERED: Absorbable Gelatin Sponge Size 12-7 TP ONE (13:00)
[2018-11-25] MEDS ORDERED: Neostigmine 1:1000 (1 mg/ml) Inj ONE (13:27)
[2018-11-25] MEDS: HYDROmorphone 0.5 mg/0.5 ml ISec IVP PRN ×8 (13:45→15:43)
[2018-11-25] MEDS ORDERED: HYDROmorphone 0.5 mg/0.5 ml ISec ONE (13:53)
[2018-11-25] MEDS: Potassium Ch 20mEq in D5-1/2NS 1,000 ML IV SCH ×2 (16:23→21:45)
--- NOTE | 2018-11-25 16:32 | RAD ---
Date of service: 11/25/2018 PROCEDURE: Intraoperative Fluoroscopy. HISTORY: LUMBAR DECOMPRESSION LAMINECTOMY FINDINGS: Fluoroscopic assistance was provided for decompressive laminectomy. Please refer to the operative report from ANANYA Cunha. Total fluoroscopic time (continuous mode) utilized during the procedure 20.7 seconds. Total exam DLP: 7.31 (mGy).
[2018-11-26] MEDS: metroNIDAZOLE 500mg/100ml NS 100 ML IVPB SCH ×3 (00:24→16:20)
[2018-11-26] MEDS: Sucralfate 1 gm/10 ml Oral Susp UD PO SCH ×4 (03:18→21:33)
[2018-11-26] MEDS: Potassium Ch 20mEq in D5-1/2NS 1,000 ML IV SCH ×4 (03:21→21:37)
--- NOTE | 2018-11-26 06:31 | OP ---
PROCEDURE DATE: 11/25/2018 PREOPERATIVE DIAGNOSIS: Epidural abscess L1-L2 with cord compression. POSTOPERATIVE DIAGNOSIS: Epidural abscess L1-L2 with cord compression. OPERATION: Decompressive laminectomy L1-L2. SURGEON: Hunter Roth MD RUG HOOKER HAND: Barrington Minor MD ANESTHESIA: General endotracheal tube intubation. PROCEDURE: The patient was brought to the operating room. General anesthesia was achieved. The patient was already on broad-spectrum antibiotics for his disk space infection and apparent osteomyelitis at L1-L2. Spinal cord monitor leads were placed throughout the patient's body. Real-time monitoring was done by graphic arts technician in the room. Remote monitoring was done by a physician as well. Sequential compression boots were placed to each of the patient's legs. The patient was then gently transferred onto the operating table and placed on a Sanjeev frame keeping his abdomen free from pressure anteriorly. Care was taken to protect the elbows and knees from pressure points. A sterile drape was used to seal off the patient's peroneal region from the operative field and his back was sterilely prepped and draped. Level of the incision was noted under fluoroscopy. Incision made sharply in the midline and taken out subcutaneous tissue using sharp dissection. Hemostasis achieved using electrocautery. The fascia was divided and stripped laterally up the spinous processes at the level of facet joints at each side. Pars were identified at each level on each side as well. Another fluoroscopic view demonstrated we were at the level of the L1-L2 disk space. It should be noted that baseline monitoring after the patient was positioned prior to the initiation of surgery revealed no abnormalities. A Leksell rongeur was then used to remove the spinous process and thin down the lamina, a laminectomy carried out using Kerrison rongeurs in a caudocephalad fashion. This was done centrally first, then out laterally to each side. There was a marked amount of thickened ligamentous tissue significantly compressing the spinal cord. Once this was decompressed dorsally, the spinal cord could be well visualized. The decompression was carried out laterally until we were at the curve of the cord itself as well. The area was then copiously irrigated with antibiotic solution. The thickened epidural tissue was passed off for specimen to go to Pathology and Microbiology. The hemostasis was achieved using thrombinated Gelfoam powder. Some liquid thrombin and pieces of Gelfoam were also placed to cover the exposed neural elements. The wound was then closed in layers with interrupted sutures of 0 Vicryl for the muscle and the fascia. The subcutaneous tissue was irrigated with antibiotic solution and closed with interrupted suture of 2-0 Vicryl, and the skin was approximated with a running subcuticular suture of 3-0 V-Loc. Dermabond was applied to seal the closure. Once that was dry, the patient was gently transferred back onto his bed in supine position. He was awakened and extubated. He was taken to recovery room in stable condition having tolerated the procedure well. No permanent electrophysiologic abnormalities were noted at the completion of the case and he was moving all extremities. Estimated blood loss was 25 mL and he received 1 L of Ringer's lactate during the operation. Hunter Roth MD
[2018-11-26] MEDS: Cefepime 2 GM in Sodium Chloride 0.9% 100 ML IVPB SCH ×2 (08:48→20:27)
--- NOTE | 2018-11-26 09:07 | CP.PCM.PN ---
Subjective - Date & Time of Evaluation Date of Evaluation: 11/26/18 Time of Evaluation: 09:05 - Subjective Subjective: pod1 pt c/o pain in back asked nurse for heroin last night for pain relief pt not making any effort to move right leg and minimal effort on left his exam is not physiologic no dec to pin at this point no further surgery indicated suggest PT and iv meds further pain managment as per pmd Objective - Vital Signs/Intake and Output Vital Signs (last 24 hours): Temp Pulse Resp BP Pulse Ox 98.8 F 59 L 20 138/88 100 11/26/18 08:01 11/26/18 08:01 11/26/18 08:01 11/26/18 08:01 11/26/18 08:01 - Medications Medications: Current Medications Hydromorphone HCl (Dilaudid) 1 mg IVP Q4 PRN PRN Reason: Pain, severe (8-10) Stop: 11/26/18 14:00 Cefepime HCl 2 gm/ Sodium (Chloride) 100 mls @ 100 mls/hr IVPB Q12 SENA; Protocol Last Admin: 11/26/18 08:48 Dose: 100 mls/hr Vancomycin HCl 1 gm/ Sodium (Chloride) 250 mls @ 166.667 mls/hr IVPB Q12 SENA; Protocol Last Admin: 11/26/18 08:49 Dose: 166.667 mls/hr Metronidazole (Flagyl 500mg/100ml Ns) 100 mls @ 100 mls/hr IVPB Q8 SENA; Protocol Last Admin: 11/26/18 08:47 Dose: 100 mls/hr Potassium Chloride/Dextrose/Sod Cl (Potassium Chl 20 Meq In D5-1/2ns) 1,000 mls @ 125 mls/hr IV .Q8H SENA Last Admin: 11/26/18 06:18 Dose: Not Given Ketorolac Tromethamine (Toradol) 30 mg IVP Q6 PRN PRN Reason: Pain, severe (8-10) Last Admin: 11/26/18 05:24 Dose: 30 mg Ketorolac Tromethamine (Toradol) 30 mg IVP Q6 SENA Stop: 11/30/18 16:01 Last Admin: 11/26/18 04:12 Dose: Not Given Sucralfate (Carafate Oral Susp) 1 gm PO Q6H SENA Last Admin: 11/26/18 08:47 Dose: 1 gm Tramadol HCl (Ultram) 50 mg PO Q6 PRN PRN Reason: Pain, moderate (4-7) Last Admin: 11/26/18 08:52 Dose: 50 mg Tramadol HCl (Ultram) 50 mg PO Q4 PRN PRN Reason: Pain, Mild (1-3) Zolpidem Tartrate (Ambien) 5 mg PO HS PRN PRN Reason: insomia Last Admin: 11/25/18 23:47 Dose: 5 mg - Labs Labs: 11/25/18 05:35 11/25/18 05:35 PT 15.1 Seconds (9.8-13.1) H 11/24/18 16:38 INR 1.3 11/24/18 16:38 APTT 31.6 Seconds (25.6-37.1) 11/24/18 16:38
--- NOTE | 2018-11-26 14:59 | CP.PCM.PN ---
Subjective - Date & Time of Evaluation Date of Evaluation: 11/26/18 Time of Evaluation: 08:00 - Subjective Subjective: s/p OR c/o pain afebrile no new cultures Objective - Vital Signs/Intake and Output Vital Signs (last 24 hours): Temp Pulse Resp BP Pulse Ox 98.8 F 59 L 20 138/88 100 11/26/18 08:01 11/26/18 08:01 11/26/18 08:01 11/26/18 08:01 11/26/18 08:01 - Medications Medications: Current Medications Cefepime HCl 2 gm/ Sodium (Chloride) 100 mls @ 100 mls/hr IVPB Q12 SENA; Protocol Last Admin: 11/26/18 08:48 Dose: 100 mls/hr Vancomycin HCl 1 gm/ Sodium (Chloride) 250 mls @ 166.667 mls/hr IVPB Q12 SENA; Protocol Last Admin: 11/26/18 08:49 Dose: 166.667 mls/hr Metronidazole (Flagyl 500mg/100ml Ns) 100 mls @ 100 mls/hr IVPB Q8 SENA; Protocol Last Admin: 11/26/18 08:47 Dose: 100 mls/hr Potassium Chloride/Dextrose/Sod Cl (Potassium Chl 20 Meq In D5-1/2ns) 1,000 mls @ 125 mls/hr IV .Q8H SENA Last Admin: 11/26/18 06:18 Dose: Not Given Ketorolac Tromethamine (Toradol) 30 mg IVP Q6 PRN PRN Reason: Pain, severe (8-10) Last Admin: 11/26/18 05:24 Dose: 30 mg Ketorolac Tromethamine (Toradol) 30 mg IVP Q6 SENA Stop: 11/30/18 16:01 Last Admin: 11/26/18 10:30 Dose: 30 mg Sucralfate (Carafate Oral Susp) 1 gm PO Q6H SENA Last Admin: 11/26/18 08:47 Dose: 1 gm Tramadol HCl (Ultram) 50 mg PO Q6 PRN PRN Reason: Pain, moderate (4-7) Last Admin: 11/26/18 08:52 Dose: 50 mg Tramadol HCl (Ultram) 50 mg PO Q4 PRN PRN Reason: Pain, Mild (1-3) Last Admin: 11/26/18 14:21 Dose: 50 mg Zolpidem Tartrate (Ambien) 5 mg PO HS PRN PRN Reason: insomia Last Admin: 11/25/18 23:47 Dose: 5 mg - Labs Labs: 11/25/18 05:35 11/25/18 05:35 PT 15.1 Seconds (9.8-13.1) H 11/24/18 16:38 INR 1.3 11/24/18 16:38 APTT 31.6 Seconds (25.6-37.1) 11/24/18 16:38 - Constitutional Appears: Non-toxic, Chronically Ill - Head Exam Head Exam: NORMOCEPHALIC - Eye Exam Eye Exam: absent: Scleral icterus - ENT Exam ENT Exam: Mucous Membranes Dry - Neck Exam Neck Exam: absent: Lymphadenopathy - Respiratory Exam Respiratory Exam: Decreased Breath Sounds, Clear to Ausculation Bilateral - Cardiovascular Exam Cardiovascular Exam: REGULAR RHYTHM - GI/Abdominal Exam GI & Abdominal Exam: Distended, Soft - Rectal Exam Rectal Exam: Deferred - Exam Exam: NORMAL INSPECTION - Extremities Exam Extremities Exam: absent: Pedal Edema - Back Exam Back Exam: absent: CVA tenderness (L), CVA tenderness (R) - Neurological Exam Neurological Exam: Alert, Awake, CN II-XII Intact, Oriented x3 Neuro motor strength exam: Left Upper Extremity: 5, Right Upper Extremity: 5, Left Lower Extremity: 2/1, Right Lower Extremity: 0 - Psychiatric Exam Psychiatric exam: Depressed - Skin Skin Exam: Dry Assessment and Plan (1) Spinal abscess Status: Acute (2) Infective endocarditis Status: Acute (3) Arthralgia Status: Acute (4) Depression Status: Acute (5) Discitis of multiple sites of spine Status: Acute (6) Drug abuse Status: Acute (7) Drug dependence Status: Acute (8) Hepatitis C Status: Acute (9) IV drug abuse Status: Acute (10) Infectious discitis Status: Acute (11) Opiate addiction Status: Acute (12) Opiate use Status: Acute (13) Osteomyelitis of lumbar spine Status: Acute (14) Weakness of lower extremity Status: Acute - Assessment and Plan (Free Text) Assessment: cont iv rx for 6-8 weeks poor prognosis
[2018-11-27] MEDS: metroNIDAZOLE 500mg/100ml NS 100 ML IVPB SCH ×3 (00:29→16:40)
--- NOTE | 2018-11-27 03:01 | CP.PCM.PN ---
Subjective - Date & Time of Evaluation Date of Evaluation: 11/25/18 Objective - Vital Signs/Intake and Output Vital Signs (last 24 hours): Temp Pulse Resp BP Pulse Ox 98.9 F 68 20 135/85 98 11/26/18 23:39 11/26/18 23:39 11/26/18 23:39 11/26/18 23:39 11/26/18 23:39 - Medications Medications: Current Medications Cefepime HCl 2 gm/ Sodium (Chloride) 100 mls @ 100 mls/hr IVPB Q12 SENA; P rotocol Last Admin: 11/26/18 20:27 Dose: 100 mls/hr Vancomycin HCl 1 gm/ Sodium (Chloride) 250 mls @ 166.667 mls/hr IVPB Q12 SENA; Protocol Last Admin: 11/26/18 21:33 Dose: 166.667 mls/hr Metronidazole (Flagyl 500mg/100ml Ns) 100 mls @ 100 mls/hr IVPB Q8 SENA; Protocol Last Admin: 11/27/18 00:29 Dose: 100 mls/hr Potassium Chloride/Dextrose/Sod Cl (Potassium Chl 20 Meq In D5-1/2ns) 1,000 mls @ 125 mls/hr IV .Q8H SENA Last Admin: 11/26/18 21:37 Dose: 125 mls/hr Ketorolac Tromethamine (Toradol) 30 mg IVP Q6 PRN PRN Reason: Pain, severe (8-10) Last Admin: 11/26/18 16:11 Dose: 30 mg Ketorolac Tromethamine (Toradol) 30 mg IVP Q6 SENA Stop: 11/30/18 16:01 Last Admin: 11/26/18 21:32 Dose: 30 mg Sucralfate (Carafate Oral Susp) 1 gm PO Q6H SENA Last Admin: 11/26/18 21:33 Dose: 1 gm Tramadol HCl (Ultram) 50 mg PO Q6 PRN PRN Reason: Pain, moderate (4-7) Last Admin: 11/26/18 20:25 Dose: 50 mg Tramadol HCl (Ultram) 50 mg PO Q4 PRN PRN Reason: Pain, Mild (1-3) Last Admin: 11/27/18 00:32 Dose: 50 mg Zolpidem Tartrate (Ambien) 5 mg PO HS PRN PRN Reason: insomia Last Admin: 11/26/18 22:34 Dose: 5 mg - Labs Labs: 11/25/18 05:35 11/25/18 05:35 PT 15.1 Seconds (9.8-13.1) H 11/24/18 16:38 INR 1.3 11/24/18 16:38 APTT 31.6 Seconds (25.6-37.1) 11/24/18 16:38 Assessment and Plan (1) Infective endocarditis Status: Acute (2) Discitis of multiple sites of spine Status: Acute (3) Dyspnea on exertion Status: Acute (4) Hepatitis C Status: Acute (5) IV drug abuse Status: Acute (6) Infectious discitis Status: Acute (7) Infectious myositis Status: Acute (8) Osteomyelitis of lumbar spine Status: Acute (9) Spinal abscess Status: Acute
--- NOTE | 2018-11-27 03:04 | CP.PCM.PN ---
Subjective - Date & Time of Evaluation Date of Evaluation: 11/26/18 Time of Evaluation: 17:30 Objective - Vital Signs/Intake and Output Vital Signs (last 24 hours): Temp Pulse Resp BP Pulse Ox 98.9 F 68 20 135/85 98 11/26/18 23:39 11/26/18 23:39 11/26/18 23:39 11/26/18 23:39 11/26/18 23:39 - Medications Medications: Current Medications Cefepime HCl 2 gm/ Sodium (Chloride) 100 mls @ 100 mls/hr IVPB Q12 SENA; Protocol Last Admin: 11/26/18 20:27 Dose: 100 mls/hr Vancomycin HCl 1 gm/ Sodium (Chloride) 250 mls @ 166.667 mls/hr IVPB Q12 SENA; Protocol Last Admin: 11/26/18 21:33 Dose: 166.667 mls/hr Metronidazole (Flagyl 500mg/100ml Ns) 100 mls @ 100 mls/hr IVPB Q8 SENA; Protocol Last Admin: 11/27/18 00:29 Dose: 100 mls/hr Potassium Chloride/Dextrose/Sod Cl (Potassium Chl 20 Meq In D5-1/2ns) 1,000 mls @ 125 mls/hr IV .Q8H SENA Last Admin: 11/26/18 21:37 Dose: 125 mls/hr Ketorolac Tromethamine (Toradol) 30 mg IVP Q6 PRN PRN Reason: Pain, severe (8-10) Last Admin: 11/26/18 16:11 Dose: 30 mg Ketorolac Tromethamine (Toradol) 30 mg IVP Q6 SENA Stop: 11/30/18 16:01 Last Admin: 11/26/18 21:32 Dose: 30 mg Sucralfate (Carafate Oral Susp) 1 gm PO Q6H SENA Last Admin: 11/26/18 21:33 Dose: 1 gm Tramadol HCl (Ultram) 50 mg PO Q6 PRN PRN Reason: Pain, moderate (4-7) Last Admin: 11/26/18 20:25 Dose: 50 mg Tramadol HCl (Ultram) 50 mg PO Q4 PRN PRN Reason: Pain, Mild (1-3) Last Admin: 11/27/18 00:32 Dose: 50 mg Zolpidem Tartrate (Ambien) 5 mg PO HS PRN PRN Reason: insomia Last Admin: 11/26/18 22:34 Dose: 5 mg - Labs Labs: 11/25/18 05:35 11/25/18 05:35 PT 15.1 Seconds (9.8-13.1) H 11/24/18 16:38 INR 1.3 11/24/18 16:38 APTT 31.6 Seconds (25.6-37.1) 11/24/18 16:38 Assessment and Plan (1) Infective endocarditis Status: Acute (2) Discitis of multiple sites of spine Status: Acute (3) Dyspnea on exertion Status: Acute (4) Hepatitis C Status: Acute (5) IV drug abuse Status: Acute (6) Infectious discitis Status: Acute (7) Infectious myositis Status: Acute (8) Osteomyelitis of lumbar spine Status: Acute (9) Spinal abscess Status: Acute
[2018-11-27] MEDS: Sucralfate 1 gm/10 ml Oral Susp UD PO SCH ×4 (03:22→21:29)
[2018-11-27] MEDS: Potassium Ch 20mEq in D5-1/2NS 1,000 ML IV SCH ×4 (05:58→22:03)
--- NOTE | 2018-11-27 09:06 | CP.PCM.CON ---
History of Present Illness - History of Present Illness History of Present Illness: Pablo Walton PGY1, Cardio consult note for Dr Coles Pt is a 43 yo male smoker with a PMH of IVDA, and Hep C who presented to the emergency department complaining of intractable back pain for several months. Pt states he has been using IV heroine to help relieve the pain. 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 Pt states he has been experiencing RLE weakness and numbness. He states he presented to the ED because he has had to drag his leg while walking and has not been able to work properly. A 12 point ROS was obtained and added to the HPI where appropriate. Past Patient History - Infectious Disease Hx of Infectious Diseases: None - Tetanus Immunizations Tetanus Immunization: Unknown - Past Medical History & Family History Past Medical History?: Yes Past Family History: Reviewed and not pertinent - Past Social History Smoking Status: Former Smoker Alcohol: None Drugs: Denies - CARDIAC Hx Hypertension: No - PULMONARY Hx Respiratory Disorders: No Hx Tuberculosis: No - NEUROLOGICAL Hx Seizures: No - HEENT Hx HEENT Problems: No - RENAL Hx Chronic Kidney Disease: No - ENDOCRINE/METABOLIC Hx Endocrine Disorders: No - HEMATOLOGICAL/ONCOLOGICAL Hx Human Immunodeficiency Virus (HIV): No - INTEGUMENTARY Hx Dermatological Problems: No - MUSCULOSKELETAL/RHEUMATOLOGICAL Hx Musculoskeletal Disorders: Yes Hx Back Pain: Yes Hx Falls: Yes - GASTROINTESTINAL Hx Gastrointestinal Disorders: No - GENITOURINARY/GYNECOLOGICAL Hx Sexually Transmitted Disorders: No - PSYCHIATRIC Hx Anxiety: Yes Hx Bipolar Disorder: Yes Hx Depression: Yes Hx Schizophrenia: Yes Hx Substance Use: Yes (Heroine) - SURGICAL HISTORY Hx Surgeries: Yes Hx Orthopedic Surgery: Yes (rt knee) - ANESTHESIA Hx Anesthesia: Yes Hx Anesthesia Reactions: No Hx Malignant Hyperthermia: No Meds Allergies/Adverse Reactions: Allergies Allergy/AdvReac Type Severity Reaction Status Date / Time cat dander Allergy CONGESTION Verified 11/21/18 12:47 dog dander Allergy CONGESTION Verified 11/21/18 12:47 - Medications Medications: Current Medications Cefepime HCl 2 gm/ Sodium (Chloride) 100 mls @ 100 mls/hr IVPB Q12 SENA; Protocol Last Admin: 11/26/18 20:27 Dose: 100 mls/hr Vancomycin HCl 1 gm/ Sodium (Chloride) 250 mls @ 166.667 mls/hr IVPB Q12 SENA; Protocol Last Admin: 11/26/18 21:33 Dose: 166.667 mls/hr Metronidazole (Flagyl 500mg/100ml Ns) 100 mls @ 100 mls/hr IVPB Q8 SEAN; Protocol Last Admin: 11/27/18 00:29 Dose: 100 mls/hr Potassium Chloride/Dextrose/Sod Cl (Potassium Chl 20 Meq In D5-1/2ns) 1,000 mls @ 125 mls/hr IV .Q8H SENA Last Admin: 11/27/18 05:58 Dose: Not Given Ketorolac Tromethamine (Toradol) 30 mg IVP Q6 PRN PRN Reason: Pain, severe (8-10) Last Admin: 11/26/18 16:11 Dose: 30 mg Ketorolac Tromethamine (Toradol) 30 mg IVP Q6 SENA Stop: 11/30/18 16:01 Last Admin: 11/27/18 03:21 Dose: 30 mg Sucralfate (Carafate Oral Susp) 1 gm PO Q6H SENA Last Admin: 11/27/18 03:22 Dose: 1 gm Tramadol HCl (Ultram) 50 mg PO Q6 PRN PRN Reason: Pain, moderate (4-7) Last Admin: 11/27/18 05:04 Dose: 50 mg Tramadol HCl (Ultram) 50 mg PO Q4 PRN PRN Reason: Pain, Mild (1-3) Last Admin: 11/27/18 00:32 Dose: 50 mg Zolpidem Tartrate (Ambien) 5 mg PO HS PRN PRN Reason: insomia Last Admin: 11/26/18 22:34 Dose: 5 mg Physical Exam - Constitutional Appears: No Acute Distress - Head Exam Head Exam: ATRAUMATIC, NORMOCEPHALIC - Eye Exam Eye Exam: EOMI - ENT Exam ENT Exam: Mucous Membranes Moist - Respiratory Exam Respiratory Exam: Clear to Auscultation Bilateral, NORMAL BREATHING PATTERN. a bsent: Accessory Muscle Use - Cardiovascular Exam Cardiovascular Exam: RRR, +S1, +S2. absent: Diastolic murmur, Systolic Murmur - GI/Abdominal Exam GI & Abdominal Exam: Normal Bowel Sounds, Soft - Extremities Exam Extremities exam: Positive for: tenderness. Negative for: full ROM, pedal edema Additional comments: RLE muscle strength 3/5 LLE muscle strength 4/5 - Neurological Exam Neurological exam: Oriented x3 - Psychiatric Exam Psychiatric exam: Normal Affect, Normal Mood - Skin Skin Exam: Dry, Normal Color, Warm Results - Vital Signs Recent Vital Signs: Last Vital Signs Temp 98.5 F 11/27/18 08:10 Pulse 58 L 11/27/18 08:10 Resp 20 11/27/18 08:10 BP 137/83 11/27/18 08:10 Pulse Ox 99 11/27/18 08:10 - Labs Result Diagrams: 11/25/18 05:35 11/25/18 05:35 Assessment & Plan - Assessment and Plan (Free Text) Assessment: IVDA, heroine Spinal Abscess Consulted for Cardiac clearance Plan: IVDA, heroine Spinal Abscess Smoker Consulted for Cardiac clearance ECHO 11/20/18 EF 60-65%, tricuspid valve shows possible vegetation, may need CHETNA to rule out endocarditis Possible CHETNA tomorrow Pt seen, examined, assessment and plan discussed with Dr Sanket Walton PGY1, Internal Medicine Resident - Date & Time Date: 11/27/18 Time: 09:08
[2018-11-27 10:53] LABS: HEMOGLOBIN 10.3 g/dL (12.0-18.0); MEAN CELL VOLUME 86.3 fl (80.0-94.0); MEAN CORPUSCULAR HEMOGLOBIN 28.4 pg (27.0-31.0); MEAN CORPUSCULAR HGB CONC 32.9 g/dL (33.0-37.0); RBC 3.63 Mil/uL (4.40-5.90); RED CELL DISTRIBUTION WIDTH 15.3 % (11.5-14.5); WHITE BLOOD COUNT 8.1 K/uL (4.8-10.8)
[2018-11-27] MEDS: Cefepime 2 GM in Sodium Chloride 0.9% 100 ML IVPB SCH ×2 (10:58→20:03)
[2018-11-27 11:15] LABS: ALBUMIN 3.2 g/dL (3.5-5.0); ALT/SGPT 34 U/L (21-72); AST/SGOT 26 U/L (17-59); BLOOD UREA NITROGEN 9 mg/dl (9-20); CALCIUM 8.7 mg/dL (8.4-10.2); GFR NON-AFRICAN AMERICAN > 60
[2018-11-27] MEDS ORDERED: Potassium Chloride 20 mEq ER Tab PO ONE (12:33)
[2018-11-28] MEDS: metroNIDAZOLE 500mg/100ml NS 100 ML IVPB SCH ×3 (00:53→16:33)
[2018-11-28] MEDS: Potassium Ch 20mEq in D5-1/2NS 1,000 ML IV SCH ×2 (00:56→06:15)
[2018-11-28] MEDS: Sucralfate 1 gm/10 ml Oral Susp UD PO SCH ×4 (04:00→21:16)
[2018-11-28] MEDS: Cefepime 2 GM in Sodium Chloride 0.9% 100 ML IVPB SCH ×2 (09:41→20:07)
[2018-11-28 11:19] LABS: BASO # 0.1 K/uL (0.0-0.2); BASO % 0.7 % (0.0-2.0); EOS # 0.1 K/uL (0.0-0.7); EOS % 1.6 % (0.0-4.0); HEMOGLOBIN 10.5 g/dL (12.0-18.0); LYMPH # 1.7 K/uL (1.0-4.3); LYMPH % 18.8 % (20.0-40.0); MEAN CORPUSCULAR HEMOGLOBIN 28.5 pg (27.0-31.0); MEAN CORPUSCULAR HGB CONC 32.7 g/dL (33.0-37.0); MEAN PLATELET VOLUME 8.1 fl (7.2-11.7); MONO # 0.7 K/uL (0.0-0.8); MONO % 8.2 % (0.0-10.0); NEUT # 6.4 K/uL (1.8-7.0); NEUT % 70.7 % (50.0-75.0); NRBC % 0.1 % (0.0-0.0); RBC 3.68 Mil/uL (4.40-5.90); RED CELL DISTRIBUTION WIDTH 15.9 % (11.5-14.5); WHITE BLOOD COUNT 9.1 K/uL (4.8-10.8)
[2018-11-28 11:26] LABS: ALBUMIN 3.2 g/dL (3.5-5.0); ALT/SGPT 37 U/L (21-72); AST/SGOT 23 U/L (17-59); BLOOD UREA NITROGEN 10 mg/dl (9-20); CALCIUM 8.7 mg/dL (8.4-10.2); GFR NON-AFRICAN AMERICAN > 60
--- NOTE | 2018-11-28 11:27 | CP.PCM.PN ---
Subjective - Date & Time of Evaluation Date of Evaluation: 11/28/18 Time of Evaluation: 11:26 - Subjective Subjective: blood cx -ve no complaints Objective - Vital Signs/Intake and Output Vital Signs (last 24 hours): Temp Pulse Resp BP Pulse Ox 99.3 F 61 20 147/90 100 11/28/18 08:09 11/28/18 08:09 11/28/18 08:09 11/28/18 08:09 11/28/18 08:09 - Medications Medications: Current Medications Cefepime HCl 2 gm/ Sodium (Chloride) 100 mls @ 100 mls/hr IVPB Q12 SENA; Protocol Last Admin: 11/28/18 09:41 Dose: 100 mls/hr Vancomycin HCl 1 gm/ Sodium (Chloride) 250 mls @ 166.667 mls/hr IVPB Q12 SENA; Protocol Last Admin: 11/28/18 10:51 Dose: 166.667 mls/hr Metronidazole (Flagyl 500mg/100ml Ns) 100 mls @ 100 mls/hr IVPB Q8 SENA; Protocol Last Admin: 11/28/18 08:41 Dose: 100 mls/hr Potassium Chloride/Dextrose/Sod Cl (Potassium Chl 20 Meq In D5-1/2ns) 1,000 mls @ 125 mls/hr IV .Q8H SENA Last Admin: 11/28/18 06:15 Dose: Not Given Ketorolac Tromethamine (Toradol) 30 mg IVP Q6 PRN PRN Reason: Pain, severe (8-10) Last Admin: 11/28/18 06:12 Dose: 30 mg Sucralfate (Carafate Oral Susp) 1 gm PO Q6H SENA Last Admin: 11/28/18 09:45 Dose: 1 gm Tramadol HCl (Ultram) 50 mg PO Q6 PRN PRN Reason: Pain, moderate (4-7) Last Admin: 11/27/18 20:03 Dose: 50 mg Tramadol HCl (Ultram) 50 mg PO Q4 PRN PRN Reason: Pain, Mild (1-3) Last Admin: 11/28/18 02:15 Dose: 50 mg Zolpidem Tartrate (Ambien) 5 mg PO HS PRN PRN Reason: insomia Last Admin: 11/27/18 22:37 Dose: 5 mg - Labs Labs: 11/27/18 10:46 11/27/18 10:46 PT 15.1 Seconds (9.8-13.1) H 11/24/18 16:38 INR 1.3 11/24/18 16:38 APTT 31.6 Seconds (25.6-37.1) 11/24/18 16:38 - Constitutional Appears: Well - Head Exam Head Exam: ATRAUMATIC, NORMAL INSPECTION, NORMOCEPHALIC - Eye Exam Eye Exam: EOMI, Normal appearance, PERRL Pupil Exam: NORMAL ACCOMODATION, PERRL - ENT Exam ENT Exam: Mucous Membranes Moist, Normal Exam - Neck Exam Neck Exam: Full ROM, Normal Inspection. absent: Lymphadenopathy - Respiratory Exam Respiratory Exam: Clear to Ausculation Bilateral, NORMAL BREATHING PATTERN - Cardiovascular Exam Cardiovascular Exam: REGULAR RHYTHM, +S1, +S2. absent: Murmur - GI/Abdominal Exam GI & Abdominal Exam: Soft, Normal Bowel Sounds. absent: Tenderness - Extremities Exam Extremities Exam: Full ROM, Normal Capillary Refill, Normal Inspection. absent: Joint Swelling, Pedal Edema - Back Exam Back Exam: NORMAL INSPECTION - Neurological Exam Neurological Exam: Alert, Awake, CN II-XII Intact, Normal Gait, Oriented x3 - Psychiatric Exam Psychiatric exam: Normal Affect, Normal Mood - Skin Skin Exam: Dry, Intact, Normal Color, Warm Assessment and Plan (1) Infective endocarditis Assessment & Plan: blood cx -ve so far no indication for CHETNA at this time Status: Acute (2) Spinal abscess Status: Acute (3) Discitis of multiple sites of spine Status: Acute (4) Drug abuse Status: Acute
--- NOTE | 2018-11-28 13:15 | CP.PCM.PN ---
Subjective - Date & Time of Evaluation Date of Evaluation: 11/28/18 Time of Evaluation: 10:00 - Subjective Subjective: awake alert c/o pain in NAD Objective - Vital Signs/Intake and Output Vital Signs (last 24 hours): Temp Pulse Resp BP Pulse Ox 99.3 F 61 20 147/90 100 11/28/18 08:09 11/28/18 08:09 11/28/18 08:09 11/28/18 08:09 11/28/18 08:09 - Medications Medications: Current Medications Cefepime HCl 2 gm/ Sodium (Chloride) 100 mls @ 100 mls/hr IVPB Q12 SENA; Protocol Last Admin: 11/28/18 09:41 Dose: 100 mls/hr Vancomycin HCl 1 gm/ Sodium (Chloride) 250 mls @ 166.667 mls/hr IVPB Q12 SENA; Protocol Last Admin: 11/28/18 10:51 Dose: 166.667 mls/hr Metronidazole (Flagyl 500mg/100ml Ns) 100 mls @ 100 mls/hr IVPB Q8 SENA; Protocol Last Admin: 11/28/18 08:41 Dose: 100 mls/hr Ketorolac Tromethamine (Toradol) 30 mg IVP Q6 PRN PRN Reason: Pain, severe (8-10) Last Admin: 11/28/18 06:12 Dose: 30 mg Sucralfate (Carafate Oral Susp) 1 gm PO Q6H SENA Last Admin: 11/28/18 09:45 Dose: 1 gm Tramadol HCl (Ultram) 50 mg PO Q6 PRN PRN Reason: Pain, moderate (4-7) Last Admin: 11/28/18 12:04 Dose: 50 mg Tramadol HCl (Ultram) 50 mg PO Q4 PRN PRN Reason: Pain, Mild (1-3) Last Admin: 11/28/18 02:15 Dose: 50 mg Zolpidem Tartrate (Ambien) 5 mg PO HS PRN PRN Reason: insomia Last Admin: 11/27/18 22:37 Dose: 5 mg - Labs Labs: 11/28/18 11:11 11/28/18 11:11 PT 15.1 Seconds (9.8-13.1) H 11/24/18 16:38 INR 1.3 11/24/18 16:38 APTT 31.6 Seconds (25.6-37.1) 11/24/18 16:38 - Constitutional Appears: Non-toxic, Chronically Ill - Head Exam Head Exam: NORMOCEPHALIC - Eye Exam Eye Exam: absent: Scleral icterus - ENT Exam ENT Exam: Mucous Membranes Dry - Neck Exam Neck Exam: absent: Lymphadenopathy - Respiratory Exam Respiratory Exam: Decreased Breath Sounds - Cardiovascular Exam Cardiovascular Exam: REGULAR RHYTHM - GI/Abdominal Exam GI & Abdominal Exam: Distended - Rectal Exam Rectal Exam: Deferred - Exam Exam: NORMAL INSPECTION - Extremities Exam Extremities Exam: absent: Pedal Edema - Back Exam Back Exam: absent: CVA tenderness (L), CVA tenderness (R) - Neurological Exam Neurological Exam: Alert, Awake, CN II-XII Intact - Psychiatric Exam Psychiatric exam: Normal Mood - Skin Skin Exam: Dry, Intact Assessment and Plan (1) Spinal abscess Status: Acute (2) Infective endocarditis Status: Acute (3) Arthralgia Status: Acute (4) Depression Status: Acute (5) Discitis of multiple sites of spine Status: Acute (6) Drug abuse Status: Acute (7) Drug dependence Status: Acute (8) Hepatitis C Status: Acute (9) IV drug abuse Status: Acute (10) Infectious discitis Status: Acute (11) Opiate addiction Status: Acute (12) Opiate use Status: Acute (13) Osteomyelitis of lumbar spine Status: Acute (14) Weakness of lower extremity Status: Acute - Assessment and Plan (Free Text) Assessment: cont empiric IV rx for 6-8 weeks cultures all neg thus far
[2018-11-28] MEDS ORDERED: Morphine 4 MG/ML VIAL IVP ONE (18:22)
[2018-11-29] MEDS: metroNIDAZOLE 500mg/100ml NS 100 ML IVPB SCH ×3 (00:09→17:02)
[2018-11-29] MEDS: Sucralfate 1 gm/10 ml Oral Susp UD PO SCH ×4 (03:50→21:37)
[2018-11-29] MEDS: Cefepime 2 GM in Sodium Chloride 0.9% 100 ML IVPB SCH ×2 (09:05→20:20)
[2018-11-29] MEDS: Morphine 5 MG/ML SYRINGE IVP PRN (23:56)
[2018-11-30] MEDS: metroNIDAZOLE 500mg/100ml NS 100 ML IVPB SCH ×3 (00:07→16:14)
--- NOTE | 2018-11-30 02:32 | CP.PCM.PN ---
Subjective - Date & Time of Evaluation Date of Evaluation: 11/27/18 Objective - Vital Signs/Intake and Output Vital Signs (last 24 hours): Temp Pulse Resp BP Pulse Ox 98.4 F 85 18 137/86 99 11/30/18 00:18 11/30/18 00:18 11/30/18 00:18 11/30/18 00:18 11/30/18 00:18 - Medications Medications: Current Medications Cefepime HCl 2 gm/ Sodium (Chloride) 100 mls @ 100 mls/hr IVPB Q12 SENA; P rotocol Last Admin: 11/29/18 20:20 Dose: 100 mls/hr Vancomycin HCl 1 gm/ Sodium (Chloride) 250 mls @ 166.667 mls/hr IVPB Q12 SENA; Protocol Last Admin: 11/29/18 21:36 Dose: 166.667 mls/hr Metronidazole (Flagyl 500mg/100ml Ns) 100 mls @ 100 mls/hr IVPB Q8 SENA; Protocol Last Admin: 11/30/18 00:07 Dose: 100 mls/hr Morphine Sulfate (Morphine) 2 mg IVP Q4 PRN PRN Reason: Pain, severe (8-10) Last Admin: 11/29/18 23:56 Dose: 2 mg Sucralfate (Carafate Oral Susp) 1 gm PO Q6H SENA Last Admin: 11/29/18 21:37 Dose: 1 gm Tramadol HCl (Ultram) 50 mg PO Q6 PRN PRN Reason: Pain, moderate (4-7) Last Admin: 11/30/18 01:05 Dose: 50 mg Zolpidem Tartrate (Ambien) 5 mg PO HS PRN PRN Reason: insomia Last Admin: 11/29/18 21:42 Dose: 5 mg - Labs Labs: 11/28/18 11:11 11/28/18 11:11 PT 15.1 Seconds (9.8-13.1) H 11/24/18 16:38 INR 1.3 11/24/18 16:38 APTT 31.6 Seconds (25.6-37.1) 11/24/18 16:38 Assessment and Plan (1) Infective endocarditis Status: Acute (2) Discitis of multiple sites of spine Status: Acute (3) Dyspnea on exertion Status: Acute (4) Hepatitis C Status: Acute (5) IV drug abuse Status: Acute (6) Infectious discitis Status: Acute (7) Infectious myositis Status: Acute (8) Osteomyelitis of lumbar spine Status: Acute (9) Spinal abscess Status: Acute
[2018-11-30] MEDS: Morphine 5 MG/ML SYRINGE IVP PRN ×5 (03:45→20:28)
[2018-11-30] MEDS: Sucralfate 1 gm/10 ml Oral Susp UD PO SCH ×4 (04:30→20:46)
[2018-11-30] MEDS: Cefepime 2 GM in Sodium Chloride 0.9% 100 ML IVPB SCH ×2 (09:44→20:29)
--- NOTE | 2018-11-30 12:49 | CP.PCM.PN ---
Subjective - Date & Time of Evaluation Date of Evaluation: 11/30/18 Time of Evaluation: 08:00 - Subjective Subjective: events noted cultures neg thus far Vanco level low cont IV rx and wound care will need rehab eval Objective - Vital Signs/Intake and Output Vital Signs (last 24 hours): Temp Pulse Resp BP Pulse Ox 98.4 F 70 20 149/88 100 11/30/18 08:05 11/30/18 08:05 11/30/18 08:05 11/30/18 08:05 11/30/18 08:05 - Medications Medications: Current Medications Cefepime HCl 2 gm/ Sodium (Chloride) 100 mls @ 100 mls/hr IVPB Q12 SENA; Protocol Last Admin: 11/30/18 09:44 Dose: 100 mls/hr Vancomycin HCl 1 gm/ Sodium (Chloride) 250 mls @ 166.667 mls/hr IVPB Q12 SENA; Protocol Last Admin: 11/30/18 09:45 Dose: 166.667 mls/hr Metronidazole (Flagyl 500mg/100ml Ns) 100 mls @ 100 mls/hr IVPB Q8 SENA; Protocol Last Admin: 11/30/18 09:44 Dose: 100 mls/hr Morphine Sulfate (Morphine) 2 mg IVP Q4 PRN PRN Reason: Pain, severe (8-10) Last Admin: 11/30/18 11:37 Dose: 2 mg Sucralfate (Carafate Oral Susp) 1 gm PO Q6H SENA Last Admin: 11/30/18 09:38 Dose: 1 gm Tramadol HCl (Ultram) 50 mg PO Q6 PRN PRN Reason: Pain, moderate (4-7) Last Admin: 11/30/18 06:06 Dose: 50 mg Zolpidem Tartrate (Ambien) 5 mg PO HS PRN PRN Reason: insomia Last Admin: 11/29/18 21:42 Dose: 5 mg - Labs Labs: 11/28/18 11:11 11/28/18 11:11 PT 15.1 Seconds (9.8-13.1) H 11/24/18 16:38 INR 1.3 11/24/18 16:38 APTT 31.6 Seconds (25.6-37.1) 11/24/18 16:38 - Constitutional Appears: Non-toxic, Chronically Ill - Head Exam Head Exam: NORMOCEPHALIC - Eye Exam Eye Exam: absent: Scleral icterus - ENT Exam ENT Exam: Mucous Membranes Dry - Neck Exam Neck Exam: absent: Lymphadenopathy - Respiratory Exam Respiratory Exam: Decreased Breath Sounds - Cardiovascular Exam Cardiovascular Exam: REGULAR RHYTHM - GI/Abdominal Exam GI & Abdominal Exam: Distended - Rectal Exam Rectal Exam: Deferred - Extremities Exam Extremities Exam: absent: Pedal Edema - Back Exam Back Exam: absent: CVA tenderness (L), CVA tenderness (R) - Neurological Exam Neurological Exam: Alert, Awake, CN II-XII Intact Assessment and Plan (1) Spinal abscess Status: Acute (2) Infective endocarditis Status: Acute (3) Arthralgia Status: Acute (4) Depression Status: Acute (5) Discitis of multiple sites of spine Status: Acute (6) Drug abuse Status: Acute (7) Drug dependence Status: Acute (8) Hepatitis C Status: Acute (9) IV drug abuse Status: Acute (10) Infectious discitis Status: Acute (11) Opiate addiction Status: Acute (12) Opiate use Status: Acute (13) Osteomyelitis of lumbar spine Status: Acute (14) Weakness of lower extremity Status: Acute - Assessment and Plan (Free Text) Assessment: events noted cultures neg thus far Vanco level low cont IV rx and wound care will need rehab eval
[2018-12-01] MEDS: Morphine 5 MG/ML SYRINGE IVP PRN ×5 (00:28→20:54)
[2018-12-01] MEDS: metroNIDAZOLE 500mg/100ml NS 100 ML IVPB SCH ×2 (00:31→08:33)
--- NOTE | 2018-12-01 02:03 | CP.PCM.PN ---
Subjective - Date & Time of Evaluation Date of Evaluation: 11/30/18 Objective - Vital Signs/Intake and Output Vital Signs (last 24 hours): Temp Pulse Resp BP Pulse Ox 98.3 F 70 20 142/79 99 12/01/18 00:09 12/01/18 00:09 12/01/18 00:09 12/01/18 00:09 12/01/18 00:09 - Medications Medications: Current Medications Cefepime HCl 2 gm/ Sodium (Chloride) 100 mls @ 100 mls/hr IVPB Q12 SENA; P rotocol Last Admin: 11/30/18 20:29 Dose: 100 mls/hr Vancomycin HCl 1 gm/ Sodium (Chloride) 250 mls @ 166.667 mls/hr IVPB Q12 SENA; Protocol Last Admin: 11/30/18 21:23 Dose: 166.667 mls/hr Metronidazole (Flagyl 500mg/100ml Ns) 100 mls @ 100 mls/hr IVPB Q8 SENA; Protocol Last Admin: 12/01/18 00:31 Dose: 100 mls/hr Morphine Sulfate (Morphine) 2 mg IVP Q4 PRN PRN Reason: Pain, severe (8-10) Last Admin: 12/01/18 00:28 Dose: 2 mg Sucralfate (Carafate Oral Susp) 1 gm PO Q6H SENA Last Admin: 11/30/18 20:46 Dose: 1 gm Tramadol HCl (Ultram) 50 mg PO Q6 PRN PRN Reason: Pain, moderate (4-7) Last Admin: 11/30/18 13:09 Dose: 50 mg Zolpidem Tartrate (Ambien) 5 mg PO HS PRN PRN Reason: insomia Last Admin: 11/29/18 21:42 Dose: 5 mg - Labs Labs: 11/28/18 11:11 11/28/18 11:11 PT 15.1 Seconds (9.8-13.1) H 11/24/18 16:38 INR 1.3 11/24/18 16:38 APTT 31.6 Seconds (25.6-37.1) 11/24/18 16:38 Assessment and Plan (1) Infective endocarditis Status: Acute (2) Discitis of multiple sites of spine Status: Acute (3) Dyspnea on exertion Status: Acute (4) Hepatitis C Status: Acute (5) IV drug abuse Status: Acute (6) Infectious discitis Status: Acute (7) Infectious myositis Status: Acute (8) Osteomyelitis of lumbar spine Status: Acute (9) Spinal abscess Status: Acute
[2018-12-01] MEDS: Sucralfate 1 gm/10 ml Oral Susp UD PO SCH ×4 (03:22→21:15)
[2018-12-01] MEDS: Cefepime 2 GM in Sodium Chloride 0.9% 100 ML IVPB SCH ×2 (08:31→21:06)
--- NOTE | 2018-12-01 10:22 | CP.PCM.PN ---
Subjective - Date & Time of Evaluation Date of Evaluation: 12/01/18 Time of Evaluation: 07:40 - Subjective Subjective: Pt seen and examined this morning at bedside. No new complaints. Objective - Vital Signs/Intake and Output Vital Signs (last 24 hours): Temp Pulse Resp BP Pulse Ox 98.3 F 72 20 110/66 97 12/01/18 08:18 12/01/18 08:18 12/01/18 08:18 12/01/18 08:18 12/01/18 08:18 - Medications Medications: Current Medications Cefepime HCl 2 gm/ Sodium (Chloride) 100 mls @ 100 mls/hr IVPB Q12 SENA; Protocol Last Admin: 12/01/18 08:31 Dose: 100 mls/hr Vancomycin HCl 1 gm/ Sodium (Chloride) 250 mls @ 166.667 mls/hr IVPB Q12 SENA; Protocol Last Admin: 12/01/18 08:35 Dose: 166.667 mls/hr Morphine Sulfate (Morphine) 2 mg IVP Q4 PRN PRN Reason: Pain, severe (8-10) Last Admin: 12/01/18 08:26 Dose: 2 mg Sucralfate (Carafate Oral Susp) 1 gm PO Q6H SENA Last Admin: 12/01/18 08:47 Dose: 1 gm Tramadol HCl (Ultram) 50 mg PO Q6 PRN PRN Reason: Pain, moderate (4-7) Last Admin: 11/30/18 13:09 Dose: 50 mg - Labs Labs: 11/28/18 11:11 11/28/18 11:11 PT 15.1 Seconds (9.8-13.1) H 11/24/18 16:38 INR 1.3 11/24/18 16:38 APTT 31.6 Seconds (25.6-37.1) 11/24/18 16:38 - Constitutional Appears: No Acute Distress - Head Exam Head Exam: ATRAUMATIC, NORMOCEPHALIC - Eye Exam Eye Exam: EOMI - ENT Exam ENT Exam: Mucous Membranes Moist - Neck Exam Neck Exam: Full ROM - Respiratory Exam Respiratory Exam: Clear to Ausculation Bilateral, NORMAL BREATHING PATTERN. absent: Accessory Muscle Use, Respiratory Distress - Cardiovascular Exam Cardiovascular Exam: RRR, +S1, +S2. absent: Diastolic murmur - GI/Abdominal Exam GI & Abdominal Exam: Soft, Normal Bowel Sounds. absent: Tenderness - Extremities Exam Extremities Exam: Full ROM. absent: Calf Tenderness, Pedal Edema, Tenderness - Neurological Exam Neurological Exam: Alert, Awake, Oriented x3 - Psychiatric Exam Psychiatric exam: Normal Affect, Normal Mood - Skin Skin Exam: Dry, Intact, Normal Color Assessment and Plan - Assessment and Plan (Free Text) Assessment: IVDA, heroine Spinal Abscess Consulted for Cardiac clearance Plan: IVDA, heroine Spinal Abscess Smoker Consulted for Cardiac clearance ECHO 11/20/18 EF 60-65%, tricuspid valve shows possible vegetation, may need CHETNA to rule out endocarditis Blood cultures negative, no indication for CHETNA at this time Continue IV antibiotics per ID Pt seen, examined, assessment and plan discussed with Dr Sanket Walton PGY1, Internal Medicine Resident
[2018-12-01] MEDS ORDERED: Lidocaine Hydrochloride 5 ML INJ ONE (13:43)
--- NOTE | 2018-12-01 14:10 | PCM.SURG1 ---
Surgeon's Initial Post Op Note - Surgeon's Notes Surgeon: Ernesto Impregnator And Drier: None Type of Anesthesia: Local Pre-Operative Diagnosis: Infection Operative Findings: Patent right brachial vein Post-Operative Diagnosis: Infection Operation Performed: Right brachial vein 35m SL 4F PICC placed with thetip in the prox RA Specimen/Specimens Removed: None Estimated Blood Loss: EBL {In ML}: 1 Date of Surgery/Procedure: 12/01/18 Time of Surgery/Procedure: 14:00
--- NOTE | 2018-12-01 16:46 | CP.PCM.PN ---
Subjective - Date & Time of Evaluation Date of Evaluation: 12/01/18 Time of Evaluation: 08:00 - Subjective Subjective: c/o pain no fever PICC in place Objective - Vital Signs/Intake and Output Vital Signs (last 24 hours): Temp Pulse Resp BP Pulse Ox 99.9 F H 97 H 18 132/75 99 12/01/18 14:07 12/01/18 14:07 12/01/18 14:07 12/01/18 14:07 12/01/18 14:07 - Medications Medications: Current Medications Cefepime HCl 2 gm/ Sodium (Chloride) 100 mls @ 100 mls/hr IVPB Q12 SENA; Protocol Last Admin: 12/01/18 08:31 Dose: 100 mls/hr Vancomycin HCl 1 gm/ Sodium (Chloride) 250 mls @ 166.667 mls/hr IVPB Q12 SENA; Protocol Last Admin: 12/01/18 08:35 Dose: 166.667 mls/hr Morphine Sulfate (Morphine) 2 mg IVP Q4 PRN PRN Reason: Pain, severe (8-10) Last Admin: 12/01/18 12:31 Dose: 2 mg Sucralfate (Carafate Oral Susp) 1 gm PO Q6H SENA Last Admin: 12/01/18 08:47 Dose: 1 gm Tramadol HCl (Ultram) 50 mg PO Q6 PRN PRN Reason: Pain, moderate (4-7) Last Admin: 11/30/18 13:09 Dose: 50 mg - Labs Labs: 11/28/18 11:11 11/28/18 11:11 PT 15.1 Seconds (9.8-13.1) H 11/24/18 16:38 INR 1.3 11/24/18 16:38 APTT 31.6 Seconds (25.6-37.1) 11/24/18 16:38 - Constitutional Appears: Non-toxic, Chronically Ill - Head Exam Head Exam: NORMOCEPHALIC - Eye Exam Eye Exam: absent: Scleral icterus - ENT Exam ENT Exam: Mucous Membranes Dry - Neck Exam Neck Exam: absent: Lymphadenopathy - Respiratory Exam Respiratory Exam: Decreased Breath Sounds - Cardiovascular Exam Cardiovascular Exam: REGULAR RHYTHM - GI/Abdominal Exam GI & Abdominal Exam: Distended, Soft - Rectal Exam Rectal Exam: Deferred - Extremities Exam Extremities Exam: absent: Pedal Edema - Back Exam Back Exam: absent: CVA tenderness (L), CVA tenderness (R) - Neurological Exam Neurological Exam: Alert, Awake, CN II-XII Intact Neuro motor strength exam: Left Upper Extremity: 4, Right Upper Extremity: 4, Left Lower Extremity: 3, Right Lower Extremity: 2/1 - Psychiatric Exam Psychiatric exam: Depressed - Skin Skin Exam: Dry Assessment and Plan (1) Spinal abscess Status: Acute (2) Infective endocarditis Status: Acute (3) Arthralgia Status: Acute (4) Depression Status: Acute (5) Discitis of multiple sites of spine Status: Acute (6) Drug abuse Status: Acute (7) Drug dependence Status: Acute (8) Hepatitis C Status: Acute (9) IV drug abuse Status: Acute (10) Infectious discitis Status: Acute (11) Opiate addiction Status: Acute (12) Opiate use Status: Acute (13) Osteomyelitis of lumbar spine Status: Acute (14) Weakness of lower extremity Status: Acute - Assessment and Plan (Free Text) Assessment: cont empirix rx x 6 weeks
--- NOTE | 2018-12-01 22:13 | VASCULAR ---
Procedure: Ultrasound and fluoroscopically placed Right upper extremity PICC. Clinical indication: Long-term IV antibiotics. Technique: The relative risks and indications of the procedure were explained to the patient and written informed consent obtained. The patient was placed supine on the angiographic table and the right arm prepped and draped in the usual sterile fashion. A tourniquet was applied to the right axilla. 1% lidocaine was used to anesthetize the skin and soft tissues at the puncture site above the elbow. The right basilic vein was punctured under direct ultrasound guidance with a micropuncture set. A permanent image was stored. A 0.018 guidewire was advanced centrally and used to measure the length to the SVC/RA junction. A 4 [place] single-lumen PICC, size 35 cm, was advanced to the SVC/RA junction under fluoroscopic guidance. The catheter was flushed and secured. The patient tolerated the procedure well. Postprocedure chest image was obtained to ensure location of the catheter tip at the SVC right atrial junction. Impression: Ultrasound and fluoroscopically placed right upper extremity PICC. A 4 [place] single-lumen PICC, size 35 cm was advanced to the SVC/RA junction. PICC ready for use.
[2018-12-02] MEDS: Morphine 5 MG/ML SYRINGE IVP PRN ×6 (00:45→20:36)
[2018-12-02] MEDS: Sucralfate 1 gm/10 ml Oral Susp UD PO SCH ×4 (03:40→22:46)
[2018-12-02] MEDS: Cefepime 2 GM in Sodium Chloride 0.9% 100 ML IVPB SCH ×2 (08:48→20:43)
--- NOTE | 2018-12-02 15:48 | CP.PCM.PN ---
Subjective - Date & Time of Evaluation Date of Evaluation: 12/02/18 Time of Evaluation: 07:00 - Subjective Subjective: Pt seen and examined, no new complaints Objective - Vital Signs/Intake and Output Vital Signs (last 24 hours): Temp Pulse Resp BP Pulse Ox 97.6 F 75 20 124/72 97 12/02/18 08:24 12/02/18 08:24 12/02/18 08:24 12/02/18 08:24 12/02/18 08:24 - Medications Medications: Current Medications Cefepime HCl 2 gm/ Sodium (Chloride) 100 mls @ 100 mls/hr IVPB Q12 SENA; Protocol Last Admin: 12/02/18 08:48 Dose: 100 mls/hr Vancomycin HCl 1 gm/ Sodium (Chloride) 250 mls @ 166.667 mls/hr IVPB Q12 SENA; Protocol Last Admin: 12/02/18 08:50 Dose: 166.667 mls/hr Morphine Sulfate (Morphine) 2 mg IVP Q4 PRN PRN Reason: Pain, severe (8-10) Last Admin: 12/02/18 12:37 Dose: 2 mg Sucralfate (Carafate Oral Susp) 1 gm PO Q6H SENA Last Admin: 12/02/18 08:51 Dose: 1 gm Tramadol HCl (Ultram) 50 mg PO Q6 PRN PRN Reason: Pain, moderate (4-7) Last Admin: 12/02/18 15:30 Dose: 50 mg - Labs Labs: 11/28/18 11:11 11/28/18 11:11 PT 15.1 Seconds (9.8-13.1) H 11/24/18 16:38 INR 1.3 11/24/18 16:38 APTT 31.6 Seconds (25.6-37.1) 11/24/18 16:38 - Constitutional Appears: No Acute Distress - Head Exam Head Exam: ATRAUMATIC, NORMOCEPHALIC - Eye Exam Eye Exam: EOMI - ENT Exam ENT Exam: Mucous Membranes Moist - Neck Exam Neck Exam: Full ROM - Respiratory Exam Respiratory Exam: Clear to Ausculation Bilateral, NORMAL BREATHING PATTERN. absent: Accessory Muscle Use, Respiratory Distress - Cardiovascular Exam Cardiovascular Exam: RRR, +S1, +S2. absent: Diastolic murmur - GI/Abdominal Exam GI & Abdominal Exam: Soft, Normal Bowel Sounds. absent: Tenderness - Neurological Exam Neurological Exam: Alert, Awake, Oriented x3 - Psychiatric Exam Psychiatric exam: Normal Affect, Normal Mood - Skin Skin Exam: Dry, Normal Color, Warm Assessment and Plan - Assessment and Plan (Free Text) Assessment: IVDA, heroine Spinal Abscess Consulted for Cardiac clearance Plan: IVDA, heroine Spinal Abscess Smoker Consulted for Cardiac clearance ECHO 11/20/18 EF 60-65%, tricuspid valve shows possible vegetation, may need CHETNA to rule out endocarditis Blood cultures negative, no indication for CHETNA at this time Continue IV antibiotics per ID Thank you for allowing us to participate in the care of this patient. Cardio is signing off at this time. Pt seen, examined, assessment and plan discussed with Dr Sanket Walton PGY1, Internal Medicine Resident
--- NOTE | 2018-12-02 23:37 | CP.PCM.PN ---
Subjective - Date & Time of Evaluation Date of Evaluation: 12/01/18 Objective - Vital Signs/Intake and Output Vital Signs (last 24 hours): Temp Pulse Resp BP Pulse Ox 97.6 F 75 20 124/72 97 12/02/18 08:24 12/02/18 08:24 12/02/18 08:24 12/02/18 08:24 12/02/18 08:24 - Medications Medications: Current Medications Cefepime HCl 2 gm/ Sodium (Chloride) 100 mls @ 100 mls/hr IVPB Q12 SENA; P rotocol Last Admin: 12/02/18 20:43 Dose: 100 mls/hr Vancomycin HCl 1 gm/ Sodium (Chloride) 250 mls @ 166.667 mls/hr IVPB Q12 SENA; Protocol Last Admin: 12/02/18 22:46 Dose: 166.667 mls/hr Morphine Sulfate (Morphine) 2 mg IVP Q4 PRN PRN Reason: Pain, severe (8-10) Last Admin: 12/02/18 20:36 Dose: 2 mg Sucralfate (Carafate Oral Susp) 1 gm PO Q6H SENA Last Admin: 12/02/18 22:46 Dose: 1 gm Tramadol HCl (Ultram) 50 mg PO Q6 PRN PRN Reason: Pain, moderate (4-7) Last Admin: 12/02/18 15:30 Dose: 50 mg - Labs Labs: 11/28/18 11:11 11/28/18 11:11 PT 15.1 Seconds (9.8-13.1) H 11/24/18 16:38 INR 1.3 11/24/18 16:38 APTT 31.6 Seconds (25.6-37.1) 11/24/18 16:38 Assessment and Plan (1) Infective endocarditis Status: Acute (2) Discitis of multiple sites of spine Status: Acute (3) Dyspnea on exertion Status: Acute (4) Hepatitis C Status: Acute (5) IV drug abuse Status: Acute (6) Infectious discitis Status: Acute (7) Infectious myositis Status: Acute (8) Osteomyelitis of lumbar spine Status: Acute (9) Spinal abscess Status: Acute
[2018-12-03] MEDS: Morphine 5 MG/ML SYRINGE IVP PRN ×5 (00:07→18:40)
[2018-12-03] MEDS: Sucralfate 1 gm/10 ml Oral Susp UD PO SCH ×3 (04:17→16:07)
[2018-12-03] MEDS: Cefepime 2 GM in Sodium Chloride 0.9% 100 ML IVPB SCH (09:54)
[2018-12-03] MEDS ORDERED: Morphine 4 MG/ML VIAL IVP ONE (10:18)
[2018-12-03] MEDS ORDERED: Morphine 5 MG/ML SYRINGE IVP ONE (10:30)
[2018-12-03] MEDS ORDERED: Morphine 4 MG/ML VIAL IVP PRN (11:00)
--- NOTE | 2018-12-03 13:08 | CP.PCM.PN ---
Subjective - Date & Time of Evaluation Date of Evaluation: 12/03/18 Time of Evaluation: 09:00 - Subjective Subjective: no change denies fever appears depressed Objective - Vital Signs/Intake and Output Vital Signs (last 24 hours): Temp Pulse Resp BP Pulse Ox 97.6 F 98 H 20 140/78 98 12/03/18 08:34 12/03/18 08:34 12/03/18 08:34 12/03/18 08:34 12/03/18 08:34 - Medications Medications: Current Medications Cefepime HCl 2 gm/ Sodium (Chloride) 100 mls @ 100 mls/hr IVPB Q12 SENA; Protocol Last Admin: 12/03/18 09:54 Dose: 100 mls/hr Vancomycin HCl 1 gm/ Sodium (Chloride) 250 mls @ 166.667 mls/hr IVPB Q12 SENA; Protocol Last Admin: 12/03/18 11:42 Dose: 166.667 mls/hr Morphine Sulfate (Morphine) 2 mg IVP Q3 PRN PRN Reason: Pain, severe (8-10) Sucralfate (Carafate Oral Susp) 1 gm PO Q6H SENA Last Admin: 12/03/18 09:54 Dose: 1 gm Tramadol HCl (Ultram) 50 mg PO Q6 PRN PRN Reason: Pain, moderate (4-7) Last Admin: 12/03/18 01:40 Dose: 50 mg - Labs Labs: 11/28/18 11:11 11/28/18 11:11 PT 15.1 Seconds (9.8-13.1) H 11/24/18 16:38 INR 1.3 11/24/18 16:38 APTT 31.6 Seconds (25.6-37.1) 11/24/18 16:38 - Constitutional Appears: Non-toxic - Head Exam Head Exam: NORMOCEPHALIC - Eye Exam Eye Exam: absent: Scleral icterus - ENT Exam ENT Exam: Mucous Membranes Dry - Neck Exam Neck Exam: absent: Lymphadenopathy - Respiratory Exam Respiratory Exam: Decreased Breath Sounds - Cardiovascular Exam Cardiovascular Exam: REGULAR RHYTHM - GI/Abdominal Exam GI & Abdominal Exam: Distended, Soft - Rectal Exam Rectal Exam: Deferred - Exam Exam: NORMAL INSPECTION - Extremities Exam Extremities Exam: absent: Pedal Edema - Back Exam Back Exam: absent: CVA tenderness (L), CVA tenderness (R) - Neurological Exam Neurological Exam: Alert, Awake, CN II-XII Intact, Oriented x3 Neuro motor strength exam: Left Upper Extremity: 5, Right Upper Extremity: 5, Left Lower Extremity: 3, Right Lower Extremity: 2/1 - Psychiatric Exam Psychiatric exam: Depressed - Skin Skin Exam: Dry Assessment and Plan (1) Spinal abscess Status: Acute (2) Infective endocarditis Status: Acute (3) Arthralgia Status: Acute (4) Depression Status: Acute (5) Discitis of multiple sites of spine Status: Acute (6) Drug abuse Status: Acute (7) Drug dependence Status: Acute (8) Hepatitis C Status: Acute (9) IV drug abuse Status: Acute (10) Infectious discitis Status: Acute (11) Opiate addiction Status: Acute (12) Opiate use Status: Acute (13) Osteomyelitis of lumbar spine Status: Acute (14) Weakness of lower extremity Status: Acute - Assessment and Plan (Free Text) Assessment: cont iv rx for 6-8 weeks PT/OT
[2018-12-03 16:27] VITALS: BP 124/79; PULSE 85; RESP 18; TEMP 99.4; O2SAT 100
--- NOTE | 2018-12-05 02:11 | CP.PCM.PN ---
Subjective - Date & Time of Evaluation Date of Evaluation: 12/02/18 Objective - Vital Signs/Intake and Output Vital Signs (last 24 hours): Temp Pulse Resp BP Pulse Ox 99.4 F 85 18 124/79 100 12/03/18 16:26 12/03/18 16:26 12/03/18 16:26 12/03/18 16:26 12/03/18 16:26 - Labs Labs: 11/28/18 11:11 11/28/18 11:11 PT 15.1 Seconds (9.8-13.1) H 11/24/18 16:38 INR 1.3 11/24/18 16:38 APTT 31.6 Seconds (25.6-37.1) 11/24/18 16:38 Assessment and Plan (1) Infective endocarditis Status: Acute (2) Discitis of multiple sites of spine Status: Acute (3) Dyspnea on exertion Status: Acute (4) Hepatitis C Status: Acute (5) IV drug abuse Status: Acute (6) Infectious discitis Status: Acute (7) Infectious myositis Status: Acute (8) Osteomyelitis of lumbar spine Status: Acute (9) Spinal abscess Status: Acute
--- NOTE | 2018-12-05 02:14 | CP.PCM.DIS ---
Provider - Provider Date of Admission: 11/21/18 13:26 Attending physician: Roosevelt Ryan MD Consults: 11/22/18 08:00 Cardiology Consult Routine Comment: Consulting Provider: Mohamud Gtz Consulting Physician: Mohamud Gtz Reason for Consult: cardiology clearance Infectious Disease Consult Routine Comment: Consulting Provider: Xiang Partida Consulting Physician: Xiang Partida Reason for Consult: ID consult/spinal abscess Neuro Surgery Consult Routine Comment: Consulting Provider: Munir Cee Consulting Physician: Munir Cee Reason for Consult: neurosurgery/ spinal abscess 11/25/18 09:03 Cardiology Consult Routine Comment: Consulting Provider: Leonardo Coles Consulting Physician: Leonardo Coles Reason for Consult: SPINAL ABSCESS; CHETNA for poss vegetation tricuspic 12/03/18 10:19 Anesthesiology Consult Routine Comment: Consulting Provider: Veronica Davis Consulting Physician: Veronica Davis Reason for Consult: Pain management, hx of IVDA, s/p lumbar sx Time Spent in preparation of Discharge (in minutes): 25 Diagnosis - Discharge Diagnosis (1) Infective endocarditis Status: Acute Priority: Medium (2) Discitis of multiple sites of spine Status: Acute (3) Dyspnea on exertion Status: Acute Priority: High (4) Hepatitis C Status: Acute Priority: Medium (5) IV drug abuse Status: Acute Priority: High (6) Infectious discitis Status: Acute Priority: High (7) Infectious myositis Status: Acute Priority: High (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 11/21/18 17:29 Blood Blood Culture - Final NO GROWTH AFTER 5 DAYS 11/21/18 17:29 Blood Gram Stain - Final TEST NOT PERFORMED Most Recent Lab Values WBC 9.1 K/uL (4.8-10.8) 11/28/18 11:11 RBC 3.68 Mil/uL (4.40-5.90) L 11/28/18 11:11 Hgb 10.5 g/dL (12.0-18.0) L 11/28/18 11:11 Hct 32.0 % (35.0-51.0) L 11/28/18 11:11 MCV 87.0 fl (80.0-94.0) 11/28/18 11:11 MCH 28.5 pg (27.0-31.0) 11/28/18 11:11 MCHC 32.7 g/dL (33.0-37.0) L 11/28/18 11:11 RDW 15.9 % (11.5-14.5) H 11/28/18 11:11 Plt Count 264 K/uL (130-400) 11/28/18 11:11 MPV 8.1 fl (7.2-11.7) 11/28/18 11:11 Neut % (Auto) 70.7 % (50.0-75.0) 11/28/18 11:11 Lymph % (Auto) 18.8 % (20.0-40.0) L 11/28/18 11:11 Cataño % (Auto) 8.2 % (0.0-10.0) 11/28/18 11:11 Eos % (Auto) 1.6 % (0.0-4.0) 11/28/18 11:11 Baso % (Auto) 0.7 % (0.0-2.0) 11/28/18 11:11 Neut # (Auto) 6.4 K/uL (1.8-7.0) 11/28/18 11:11 Lymph # (Auto) 1.7 K/uL (1.0-4.3) 11/28/18 11:11 Cataño # (Auto) 0.7 K/uL (0.0-0.8) 11/28/18 11:11 Eos # (Auto) 0.1 K/uL (0.0-0.7) 11/28/18 11:11 Baso # (Auto) 0.1 K/uL (0.0-0.2) 11/28/18 11:11 ESR 48 mm/hr (0-15) H 12/02/18 05:40 PT 15.1 Seconds (9.8-13.1) H 11/24/18 16:38 INR 1.3 11/24/18 16:38 APTT 31.6 Seconds (25.6-37.1) 11/24/18 16:38 Sodium 138 mmol/l (132-148) 11/28/18 11:11 Potassium 3.7 MMOL/L (3.6-5.0) 11/28/18 11:11 Chloride 100 mmol/L (98-107) 11/28/18 11:11 Carbon Dioxide 27 mmol/L (22-30) 11/28/18 11:11 Anion Gap 15 (10-20) 11/28/18 11:11 BUN 10 mg/dl (9-20) 11/28/18 11:11 Creatinine 0.5 mg/dl (0.8-1.5) L 11/28/18 11:11 Est GFR ( Amer) > 60 11/28/18 11:11 Est GFR (Non-Af Amer) > 60 11/28/18 11:11 Random Glucose 106 mg/dL (75-110) 11/28/18 11:11 Calcium 8.7 mg/dL (8.4-10.2) 11/28/18 11:11 Total Bilirubin 0.1 mg/dl (0.2-1.3) L 11/28/18 11:11 AST 23 U/L (17-59) 11/28/18 11:11 ALT 37 U/L (21-72) 11/28/18 11:11 Alkaline Phosphatase 92 U/L (38-126) 11/28/18 11:11 C-Reactive Protein 16.00 mg/L (0.0-9.9) H 12/02/18 05:40 Total Protein 6.2 G/DL (6.3-8.2) L 11/28/18 11:11 Albumin 3.2 g/dL (3.5-5.0) L 11/28/18 11:11 Globulin 3.1 gm/dL (2.2-3.9) 11/28/18 11:11 Albumin/Globulin Ratio 1.0 (1.0-2.1) 11/28/18 11:11 Vancomycin Trough 8.4 ug/mL (5.0-10.0) 11/29/18 20:38 Urine Opiates Screen Positive (NEGATIVE) H 11/21/18 15:55 Urine Methadone Screen Negative (NEGATIVE) 11/21/18 15:55 Ur Barbiturates Screen Negative (NEGATIVE) 11/21/18 15:55 Ur Phencyclidine Scrn Negative (NEGATIVE) 11/21/18 15:55 Ur Amphetamines Screen Negative (NEGATIVE) 11/21/18 15:55 U Benzodiazepines Scrn Negative (NEGATIVE) 11/21/18 15:55 U Oth Cocaine Metabols Negative (NEGATIVE) 11/21/18 15:55 U Cannabinoids Screen Negative (NEGATIVE) 11/21/18 15:55 HCV RNA Qual (TMA) Not detected 11/24/18 14:16 Blood Type O NEGATIVE 11/24/18 21:25 Antibody Screen Negative 11/24/18 21:25 Crossmatch See Detail 11/24/18 21:25 BBK History Checked Patient has bt 11/24/18 21:25 Discharge Exam - Head Exam Head Exam: NORMOCEPHALIC Discharge Plan - Discharge Medications Prescriptions: Cefepime IV 2 gm in NS [Maxipime 2gm] 2 gm IVPB Q12 #84 bag Vancomycin 1gm in NS 250ml [Vancomycin 1gm] 1 gm IVPB Q12 #84 bag - Follow Up Plan Condition: FAIR Disposition: TRANSF TO SNF Instructions: Laminectomy (DC), Abscess (GEN) Additional Instructions: follow up with primary MD 1 week Referrals: [facility] [Outside] Mohamud Gtz MD [Staff Provider] - Xiang Partida MD [Staff Provider] - Munir Cee MD [Staff Provider] - Roosevelt Ryan MD [Staff Provider] -
== END 2018-12-03 19:44 | DRG 531 ==
LOC: H.ER 12:37 → H.ERHOLD 13:26 → H.MEDSURG1 16:12
PROVIDERS: ADMIT Internal Medicine; ATTEND Internal Medicine
PROC: 30233K1 Transfusion of Nonautologous Frozen Plasma into Peripheral Vein, Percutaneous Approach (ICD-10-PCS; 2018-11-25)
PROC: 00NY0ZZ Release Lumbar Spinal Cord, Open Approach (ICD-10-PCS; principal; 2018-11-25 11:00)
PROC: 02H633Z Insertion of Infusion Device into Right Atrium, Percutaneous Approach (ICD-10-PCS; 2018-12-01)
DX: G06.1 Intraspinal abscess and granuloma (principal); I33.0 Acute and subacute infective endocarditis; F20.9 Schizophrenia, unspecified; B19.20 Unspecified viral hepatitis C without hepatic coma; F11.20 Opioid dependence, uncomplicated; R32 Unspecified urinary incontinence; M60.009 Infective myositis, unspecified site; M46.26 Osteomyelitis of vertebra, lumbar region; M46.49 Discitis, unspecified, multiple sites in spine; F31.9 Bipolar disorder, unspecified; R53.1 Weakness; Z87.891 Personal history of nicotine dependence; R63.4 Abnormal weight loss; Z68.21 Body mass index [BMI] 21.0-21.9, adult; G95.29 Other cord compression